=== PATIENT | male | born 1955 | race Hispanic/Latino ===

== ENCOUNTER 2016-08-07 20:39 | Emergency (ER) | payer MEDICAID ==
[2016-08-07 21:24] VITALS: BP 121/65
--- NOTE | 2016-08-07 22:32 | Emergency Department Report ---
ED Lower Extremity HPI - General Chief Complaint: Extremity Injury, Lower Stated Complaint: LEFT HIP PAIN Time Seen by Provider: 08/07/16 22:08 Source: patient, EMS Mode of arrival: Wheelchair Limitations: No Limitations - History of Present Illness Initial Comments: Patient is a 60-year-old male with history of left hip replacement last year presenting with left hip pain status post fall on the lawn this morning. Patient is a poor historian information gathered from EMS. Currently patient cannot articulate why he is in the ED, but reports hip pain. Otherwise no other complaints MD Complaint: hip injury, fall -: days(s) (1) Injury: Hip: Left (pain with ambulation) Place: home Severity: mild Worsens With: weight bearing, movement - Related Data Home Medications Medication Instructions Recorded Confirmed Last Taken Omeprazole Magnesium [PriLOSEC Otc] 20 mg PO QDAY 11/22/15 11/22/15 Unknown Allergies Allergy/AdvReac Type Severity Reaction Status Date / Time No Known Allergies Allergy Unverified 11/22/15 09:54 ED Review of Systems ROS: Stated complaint: LEFT HIP PAIN Other details as noted in HPI Comment: All other systems reviewed and negative ED Past Medical Hx - Past Medical History Previous Medical History?: Yes Hx Hypertension: No Additional medical history: brain mass - Surgical History Past Surgical History?: Yes Additional Surgical History: brain surgery left hip sx - Social History Smoking Status: Current Every Day Smoker Substance Use Type: None - Medications Home Medications: Home Medications Medication Instructions Recorded Confirmed Last Taken Type Omeprazole Magnesium [PriLOSEC Otc] 20 mg PO QDAY 11/22/15 11/22/15 Unknown History ED Physical Exam - General Limitations: No Limitations General appearance: alert, in no apparent distress - Head Head exam: Present: atraumatic, normocephalic - Eye Eye exam: Present: normal appearance - ENT ENT exam: Present: mucous membranes moist - Neck Neck exam: Present: normal inspection - Respiratory Respiratory exam: Present: normal lung sounds bilaterally. Absent: respiratory distress - Cardiovascular Cardiovascular Exam: Present: regular rate, normal rhythm. Absent: systolic murmur, diastolic murmur, rubs, gallop - GI/Abdominal GI/Abdominal exam: Present: soft, normal bowel sounds - Rectal Rectal exam: Present: deferred - Extremities Exam Extremities exam: Present: normal inspection - Back Exam Back exam: Present: normal inspection - Neurological Exam Neurological exam: Present: alert, oriented X3 - Psychiatric Psychiatric exam: Present: normal affect, normal mood - Skin Skin exam: Present: warm, dry, intact, normal color. Absent: rash ED Course Vital Signs 08/07/16 21:18 Temperature 98.8 F Pulse Rate 65 Respiratory 18 Rate Blood Pressure 121/65 O2 Sat by Pulse 97 Oximetry ED Lower Extremity MDM - Radiology Data Radiology results: image reviewed - Medical Decision Making Hip and pelvis x-rays: Left hip prosthesis in place. No other acute fracture or dislocation. Critical care attestation.: If time is entered above; I have spent that time in minutes in the direct care of this critically ill patient, excluding procedure time. ED Disposition Clinical Impression: Fall, Hip pain Disposition: DISCHARGED TO HOME OR SELFCARE Is pt being admited?: No Condition: Stable Instructions: Arthralgia (ED), Fall Prevention (ED) Referrals: PRIMARY CARE, [Primary Care Provider] - 3-5 Days
--- NOTE | 2016-08-08 08:12 | XRay Report ---
Left hip 2 views. History: Trauma. Findings: A left hip prosthesis is identified in satisfactory position. There is no evidence of fracture or dislocation. Impression: No acute findings.
== END 2016-08-08 00:26 | disposition home or self-care (01) ==
LOC: ED 20:39
DX: M25.551 Pain in right hip (principal); F17.200 Nicotine dependence, unspecified, uncomplicated; W18.30XA Fall on same level, unspecified, initial encounter; Y93.9 Activity, unspecified; Y92.9 Unspecified place or not applicable; Y99.9 Unspecified external cause status
CPT/HCPCS: 99283

== ENCOUNTER 2016-11-09 03:11 | Emergency (ER) | payer MEDICAID ==
--- NOTE | 2016-11-09 03:32 | Emergency Department Report ---
ED General Adult HPI - General Chief complaint: Dyspnea/Respdistress Stated complaint: PULLED OUT TRACH Time Seen by Provider: 11/09/16 03:17 Source: patient (patient is nonverbal. He is able to follow commands.), EMS ( ems notes not available at time of chart dictation), RN notes reviewed, old records reviewed Mode of arrival: Stretcher Limitations: Physical Limitation - History of Present Illness Initial comments: This is a 60-year-old male who was previously unknown to me. He is [facility] the [facility] for accidentally having dislodged his tracheostomy. Upon arrival to the ER, the patient's tracheostomy inner cannula was found to be occluded with wax, mucus, and other products. A 6 Ukrainian cuffed tracheostomy tube was placed and his tracheal stoma, the patient received aggressive bag valve mask ventilation, and was switched to trach collar where he remains saturating well. He is currently saturating well , with no complaints and appears quite comfortable. -: Sudden Consistency: now resolved Improves with: other (placement of a trach) Associated Symptoms: denies other symptoms - Related Data Home Medications Medication Instructions Recorded Confirmed Last Taken Omeprazole Magnesium [PriLOSEC Otc] 20 mg PO QDAY 11/22/15 09/09/16 Unknown Previous Rx's Medication Instructions Recorded Last Taken Type Dexamethasone [Decadron] 4 mg IV Q6HR vial 09/14/16 Unknown Rx levETIRAcetam [Keppra TAB] 750 mg PO BID tablet 09/14/16 Unknown Rx Levofloxacin [Levaquin] 750 mg PO QDAY #6 tablet 11/09/16 Unknown Rx Allergies Allergy/AdvReac Type Severity Reaction Status Date / Time No Known Allergies Allergy Unverified 11/22/15 09:54 ED Review of Systems ROS: Stated complaint: PULLED OUT TRACH Other details as noted in HPI Constitutional: see HPI Eyes: as per HPI ENT: as per HPI Respiratory: see HPI Cardiovascular: as per HPI Gastrointestinal: as per HPI Genitourinary: as per HPI Musculoskeletal: as per HPI Skin: as per HPI Neurological: as per HPI Psychiatric: as per HPI Hematological/Lymphatic: as per HPI ED Past Medical Hx - Past Medical History Hx Hypertension: No Hx Congestive Heart Failure: No Hx Diabetes: No Hx GERD: Yes Hx Asthma: No Hx COPD: No Additional medical history: brain mass - Surgical History Additional Surgical History: brain surgery left hip sx - Social History Smoking Status: Unknown if ever smoked - Medications Home Medications: Home Medications Medication Instructions Recorded Confirmed Last Taken Type Omeprazole Magnesium [PriLOSEC Otc] 20 mg PO QDAY 11/22/15 09/09/16 Unknown History Dexamethasone [Decadron] 4 mg IV Q6HR vial 09/14/16 Unknown Rx levETIRAcetam [Keppra TAB] 750 mg PO BID tablet 09/14/16 Unknown Rx Levofloxacin [Levaquin] 750 mg PO QDAY #6 tablet 11/09/16 Unknown Rx ED Physical Exam - General Limitations: Physical Limitation General appearance: alert, in no apparent distress - Head Head exam: Present: atraumatic, normocephalic - Eye Eye exam: Present: normal appearance - ENT ENT exam: Present: normal exam, normal orophraynx, mucous membranes moist - Neck Neck exam: Present: normal inspection, full ROM, other (the tracheal stoma has no redness, pus or streaking) - Respiratory Respiratory exam: Present: respiratory distress, rhonchi, other (initially he had rales and rhonchi. Breath sounds are improved at the place with a tracheostomy) - Cardiovascular Cardiovascular Exam: Present: regular rate, normal rhythm, normal heart sounds. Absent: bradycardia, tachycardia, irregular rhythm, systolic murmur, diastolic murmur, rubs, gallop - GI/Abdominal GI/Abdominal exam: Present: soft, normal bowel sounds. Absent: distended, tenderness, guarding, rebound, rigid - Rectal Rectal exam: Present: deferred - Extremities Exam Extremities exam: Present: normal inspection - Back Exam Back exam: Present: normal inspection - Neurological Exam Neurological exam: Present: alert - Psychiatric Psychiatric exam: Present: normal affect, normal mood - Skin Skin exam: Present: warm, dry, intact, normal color. Absent: rash ED Course Vital Signs 11/09/16 11/09/16 11/09/16 03:45 04:28 04:40 Temperature 97.3 F L Pulse Rate 97 H 92 H Respiratory 20 18 24 Rate Blood Pressure 123/84 [Left] O2 Sat by Pulse 98 96 Oximetry 11/09/16 04:46 Temperature 98.7 F Pulse Rate 89 Respiratory 18 Rate Blood Pressure 116/80 [Left] O2 Sat by Pulse 96 Oximetry ED Medical Decision Making - Lab Data Vital Signs 11/09/16 11/09/16 11/09/16 03:45 04:28 04:40 Temperature 97.3 F L Pulse Rate 97 H 92 H Respiratory 20 18 24 Rate Blood Pressure 123/84 [Left] O2 Sat by Pulse 98 96 Oximetry 11/09/16 04:46 Temperature 98.7 F Pulse Rate 89 Respiratory 18 Rate Blood Pressure 116/80 [Left] O2 Sat by Pulse 96 Oximetry - Radiology Data Radiology results: image reviewed interpreted by me: X-ray of the chest demonstrates appropriate placement of tracheostomy tube. Chronic findings consistent with COPD are noted There is a right lower lobe infiltrate - Medical Decision Making differential diagnosis: Tracheostomy displacement, chronic lung disease Assessment and plan: 60-year-old male status post inadvertent removal of tracheostomy tube. He is currently on a trach collar and appears quite comfortable. He is in no distress. He will be [facility]. X-ray suggests right lower lobe infiltrate, may be aspiration. Patient will be treated empirically with Levaquin. Critical care attestation.: If time is entered above; I have spent that time in minutes in the direct care of this critically ill patient, excluding procedure time. ED Disposition Clinical Impression: Tracheostomy care Disposition: DC/TX-03 [facility] C[facility] Is pt being admited?: No Does the pt Need Aspirin: No Condition: Stable Instructions: Tracheostomy Care (ED), Tracheotomy (ED) Additional Instructions: Continue current outpatient medications. Follow up with the certified meeting professional for further evaluation and management of the tracheostomy placement. Patient currently on a trach collar with oxygen as needed. Return to the ER right away with fevers, chills, chest pain, shortness of breath, lethargy, irritability, projectile vomiting, change in mental status. Referrals: PRIMARY CARE, [Primary Care Provider] - 3-5 Days MINESH DELATORRE MD [Staff Physician] - 3-5 Days SHANTI EMERSON MD [Staff Physician] - 3-5 Days
--- NOTE | 2016-11-09 05:10 | XRay Report ---
FINAL REPORT PROCEDURE: XR CHEST 1V AP TECHNIQUE: Chest radiograph anteroposterior view. CPT 37995 HISTORY: resp distress COMPARISON: 09/09/2016 FINDINGS: Heart: Normal. Mediastinum/Vessels: Normal. Lungs/Pleural space: There is an infiltrate at the right lung base which is new since the prior study. The left lung is clear and expanded.. Bony thorax: No acute osseous abnormality. Life support devices: Tracheostomy tube is in proper position.. IMPRESSION: Heart size is normal.. There is an infiltrate at the right lung base which is new since the prior study. The left lung is clear and expanded.. Tracheostomy tube is in proper position..
[2016-11-09] MEDS ORDERED: LEVAQUIN FEEDTUBE ONE (05:25)
[2016-11-09 08:29] VITALS: BP 103/74
== END 2016-11-09 08:30 ==
LOC: ED 03:11
DX: J95.09 Other tracheostomy complication (principal); K21.9 Gastro-esophageal reflux disease without esophagitis
CPT/HCPCS: 71010; 82962

== ENCOUNTER 2016-11-10 00:41 | Emergency (ER) | payer MEDICAID ==
--- NOTE | 2016-11-10 04:09 | Emergency Department Report ---
ED General Adult HPI - General Chief complaint: Dyspnea/Respdistress Stated complaint: REINA Time Seen by Provider: 11/10/16 00:57 Source: EMS (ems notes not available at time of chart dictation), RN notes reviewed, old records reviewed Mode of arrival: Stretcher Limitations: Language Barrier, Physical Limitation - History of Present Illness Initial comments: This is a 60-year-old male who I saw yesterday. The patient is sent back to the ER because he accidentally dislodged his 6 Tongan shiley cuffed tracheostomy tube. It is replaced prior to my evaluation. The patient is able to nod to yes no questions. The patient indicates no headache, neck pain, chest pain, abdominal pain, shortness of breath. -: Sudden Location: neck Severity scale (0 -10): 0 Consistency: now resolved Associated Symptoms: denies other symptoms - Related Data Home Medications Medication Instructions Recorded Confirmed Last Taken Omeprazole Magnesium [PriLOSEC Otc] 20 mg PO QDAY 11/22/15 11/10/16 11/09/16 08: 00 ALBUTEROL Inhaler [Proair] 2 puff IH QID PRN 11/10/16 11/10/16 11/09/16 21:00 Docusate Sodium [Colace] 100 mg PO BID 11/10/16 11/10/16 11/09/16 21:00 Enoxaparin [Lovenox] 40 mg SQ QDAY 11/10/16 11/10/16 11/09/16 21:00 Multivitamin Tab [Multiple Vitamin 1 each PO QDAY 11/10/16 11/10/16 11/09/16 21: 00 TAB (Theragran)] Nicotine [Habitrol] 14 mg TD DAILY 11/10/16 11/10/16 11/09/16 21:00 Pantoprazole [Protonix] 40 mg PO QDAY 11/10/16 11/10/16 11/09/16 21:00 Ramelteon [Rozerem] 8 mg PO DAILY 11/10/16 11/10/16 11/09/16 21:00 Previous Rx's Medication Instructions Recorded Last Taken Type levETIRAcetam [Keppra TAB] 750 mg PO BID tablet 09/14/16 11/09/16 21:00 Rx Allergies Allergy/AdvReac Type Severity Reaction Status Date / Time No Known Allergies Allergy Verified 11/10/16 01:08 ED Review of Systems ROS: Stated complaint: REINA Other details as noted in HPI Constitutional: denies: fever Eyes: denies: eye discharge ENT: denies: epistaxis Respiratory: see HPI Cardiovascular: denies: chest pain Gastrointestinal: denies: abdominal pain Genitourinary: as per HPI Musculoskeletal: as per HPI Skin: as per HPI Neurological: as per HPI Psychiatric: as per HPI ED Past Medical Hx - Past Medical History Previous Medical History?: Yes Hx Hypertension: No Hx Congestive Heart Failure: No Hx Diabetes: No Hx GERD: Yes Hx Asthma: No Hx COPD: No Additional medical history: Resp failure, Trach placement, Peg tube placement, Hemangioblastoma, brain mass, GERD, OA OF LEFT HIP - Surgical History Past Surgical History?: Yes Additional Surgical History: 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 - Social History Smoking Status: Never Smoker Substance Use Type: None - Medications Home Medications: Home Medications Medication Instructions Recorded Confirmed Last Taken Type Omeprazole Magnesium [PriLOSEC Otc] 20 mg PO QDAY 11/22/15 11/10/16 11/09/16 08: 00 History levETIRAcetam [Keppra TAB] 750 mg PO BID tablet 09/14/16 11/10/16 11/09/16 21: 00 Rx ALBUTEROL Inhaler [Proair] 2 puff IH QID PRN 11/10/16 11/10/16 11/09/16 21:00 History Docusate Sodium [Colace] 100 mg PO BID 11/10/16 11/10/16 11/09/16 21:00 History Enoxaparin [Lovenox] 40 mg SQ QDAY 11/10/16 11/10/16 11/09/16 21:00 History Multivitamin Tab [Multiple Vitamin 1 each PO QDAY 11/10/16 11/10/16 11/09/16 21: 00 History TAB (Theragran)] Nicotine [Habitrol] 14 mg TD DAILY 11/10/16 11/10/16 11/09/16 21:00 History Pantoprazole [Protonix] 40 mg PO QDAY 11/10/16 11/10/16 11/09/16 21:00 History Ramelteon [Rozerem] 8 mg PO DAILY 11/10/16 11/10/16 11/09/16 21:00 History ED Physical Exam - General Limitations: Language Barrier General appearance: alert, in no apparent distress - Head Head exam: Present: atraumatic, normocephalic - Eye Eye exam: Present: normal appearance - ENT ENT exam: Present: mucous membranes moist, other (there is a tracheostomy collar noted, stoma has no redness, pus or streaking) - Neck Neck exam: Present: normal inspection, full ROM - Respiratory Respiratory exam: Present: normal lung sounds bilaterally. Absent: respiratory distress, wheezes, rales, rhonchi, stridor, chest wall tenderness, accessory muscle use, decreased breath sounds - Cardiovascular Cardiovascular Exam: Present: regular rate, normal rhythm. Absent: systolic murmur, diastolic murmur, rubs, gallop - GI/Abdominal GI/Abdominal exam: Present: soft, normal bowel sounds, other (feeding tube in place. No redness around the tube site). Absent: distended, tenderness, guarding, rebound, rigid - Rectal Rectal exam: Present: deferred - Extremities Exam Extremities exam: Present: normal inspection, normal capillary refill - Back Exam Back exam: Present: normal inspection. Absent: tenderness - Neurological Exam Neurological exam: Present: alert - Psychiatric Psychiatric exam: Present: normal affect, normal mood - Skin Skin exam: Present: warm, dry, intact, normal color. Absent: rash ED Course Vital Signs 11/10/16 11/10/16 11/10/16 00:54 01:27 03:39 Temperature 99.7 F H Pulse Rate 86 93 H Respiratory 20 20 18 Rate Blood Pressure 142/76 Blood Pressure 142/76 124/73 [Left] O2 Sat by Pulse 96 93 Oximetry ED Medical Decision Making - Lab Data Vital Signs 11/10/16 11/10/16 11/10/16 00:54 01:27 03:39 Temperature 99.7 F H Pulse Rate 86 93 H Respiratory 20 20 18 Rate Blood Pressure 142/76 Blood Pressure 142/76 124/73 [Left] O2 Sat by Pulse 96 93 Oximetry - Medical Decision Making Patient with recurrent tracheostomy dislodgment, now in place, no distress, can follow-up as an outpatient. - Differential Diagnosis tracheostomy tube dislodgment, recurrent, now resolved Critical care attestation.: If time is entered above; I have spent that time in minutes in the direct care of this critically ill patient, excluding procedure time. ED Disposition Clinical Impression: Tracheostomy care Disposition: DC/TX-70 ANOTHER TYPE [facility] Is pt being admited?: No Does the pt Need Aspirin: No Condition: Stable Additional Instructions: Continue current outpatient medications. Follow up with the primary care doctor or primer assembler within the next 2 weeks. Return to the ER right away with fevers, chills, chest pain, shortness of breath, nausea, vomiting, confusion, inability to tolerate liquid feeds. Referrals: PRIMARY CARE, [Primary Care Provider] - 3-5 Days
[2016-11-10 07:19] VITALS: BP 111/65
== END 2016-11-10 07:19 | disposition other institution (70) ==
LOC: ED 00:41
DX: J95.01 Hemorrhage from tracheostomy stoma (principal); K21.9 Gastro-esophageal reflux disease without esophagitis

== ENCOUNTER 2016-11-13 20:09 | Inpatient (IN) | payer MEDICAID ==
[2016-11-13] MEDS ORDERED: NACL 0.9% 500 ML 500 ML IV ONE (20:22)
[2016-11-13] MEDS ORDERED: TYLENOL PR STA (20:22)
[2016-11-13] MEDS ORDERED: DUONEB *Not for PRN Use IH ONE (20:32)
--- NOTE | 2016-11-13 20:35 | Emergency Department Report ---
HPI - General Chief Complaint: Dyspnea/Respdistress Time Seen by Provider: 11/13/16 20:28 - HPI HPI: This is a 60-year-old male who presents to the emergency department by EMS from [facility] with complaint of shortness of breath and low pulse ox. The patient is trached and has a history of a brain mass. He previously was at [facility] a few days ago for competitions with his trach and when she pulled it out repeatedly. At that time it appears as if he had some lower lobe pneumonia and was placed on Levaquin. He was sent in today as he was found have low oxygen saturation. EMS found the patient to be in the 70s. He was given a trach tent with supplemental oxygen and had some improvement. Patient is currently a poor historian secondary to his medical conditions. ED Past Medical Hx - Past Medical History Previous Medical History?: Yes Hx Hypertension: Yes Hx Congestive Heart Failure: No Hx Diabetes: Yes Hx GERD: Yes Hx Asthma: No Hx COPD: No Additional medical history: Resp failure, Trach placement, Peg tube placement, Hemangioblastoma, brain mass, GERD, OA OF LEFT HIP, DVT - Surgical History Past Surgical History?: Yes Additional Surgical History: 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 - Social History Smoking Status: Former Smoker Substance Use Type: None - Medications Home Medications: Home Medications Medication Instructions Recorded Confirmed Last Taken Type Omeprazole Magnesium [PriLOSEC Otc] 20 mg PO QDAY 11/22/15 11/10/16 11/09/16 08: 00 History levETIRAcetam [Keppra TAB] 750 mg PO BID tablet 09/14/16 11/10/16 11/09/16 21: 00 Rx ALBUTEROL Inhaler [Proair] 2 puff IH QID PRN 11/10/16 11/10/16 11/09/16 21:00 History Docusate Sodium [Colace] 100 mg PO BID 11/10/16 11/10/16 11/09/16 21:00 History Enoxaparin [Lovenox] 40 mg SQ QDAY 11/10/16 11/10/16 11/09/16 21:00 History Multivitamin Tab [Multiple Vitamin 1 each PO QDAY 11/10/16 11/10/16 11/09/16 21: 00 History TAB (Theragran)] Nicotine [Habitrol] 14 mg TD DAILY 11/10/16 11/10/16 11/09/16 21:00 History Pantoprazole [Protonix] 40 mg PO QDAY 11/10/16 11/10/16 11/09/16 21:00 History Ramelteon [Rozerem] 8 mg PO DAILY 11/10/16 11/10/16 11/09/16 21:00 History ED Review of Systems ROS: Stated complaint: REINA Other details as noted in HPI Comment: Unobtainable due to pts medical conditions Physical Exam - Physical Exam Vital Signs: Vital Signs 11/13/16 20:13 Temperature 100.4 F H Pulse Rate 102 H Blood Pressure 94/65 O2 Sat by Pulse 86 Oximetry Physical Exam: GENERAL: Patient is ill-appearing. HEENT: Normocephalic. Atraumatic. Pupils equal reactive to light bilaterally. Patient has moist mucous membranes. NECK: Supple. Trachea is midline. There is a trach and collar in place. CHEST/LUNGS: Coarse breath sounds and rhonchi throughout the chest. There is supraclavicular accessory muscle use and tachypnea. There is some respiratory distress noted. HEART/CARDIOVASCULAR: Regular. There is mild tachycardia. There is no gallop rub or murmur. ABDOMEN: Abdomen is soft, nontender. Patient has normal bowel sounds. There is no abdominal distention. SKIN: Skin is hot but dry. NEURO: Patient withdraws from painful stimuli but is nonverbal and not following any commands. MUSCULOSKELETAL: There is no tenderness or deformity. There is no evidence of acute injury. ED Course Vital Signs 11/13/16 20:13 Temperature 100.4 F H Pulse Rate 102 H Blood Pressure 94/65 O2 Sat by Pulse 86 Oximetry - ABG Interpretation Ph: [phone] PCO2: 62 PO2: 36 Bicarbonate: 35 Interpretation: respiratory acidosis, metabolic alkalosis, other (hypoxemia) - Pulse Oximetry Interpretation Digit-Finger Initial Pulse Oximetry Readin O2 Sat by Pulse Oximetry: 85 Actions Taken: increased FIO2 to (60% per trach tent, then vent) ED Medical Decision Making - Lab Data Result diagrams: 11/13/16 20:49 11/13/16 20:49 - EKG Data -: EKG Interpreted by Me EKG shows normal: sinus rhythm, axis, intervals, QRS complexes, ST-T waves Rate: normal - EKG Data When compared to previous EKG there are: no significant change Interpretation: unchanged when compared t (09/09/16) - Radiology Data Radiology results: report reviewed, image reviewed interpreted by me: Chest x-ray shows concern for basilar infiltrates. No obvious pleural effusion. No pneumothorax. CT angiography of the chest shows no evidence of pulmonary arterial emboli. Bilateral extensive lower lung infiltrates. No effusion or pneumothorax. - Medical Decision Making 60-year-old male presents to the emergency department by EMS from [facility] with shortness of breath and hypoxia. Patient was found to have a fever and lung sounds are coarse with rhonchi. Chest x-ray shows concern for basilar infiltrates. He had a quite elevated d-dimer so a CT angiography of the chest was done that did not show any PE but confirmed basilar infiltrates and concern for pneumonia. Along with fever and leukocytosis the patient has criteria for sepsis. Blood and urine culture sent and patient started on Zosyn and Levaquin. The patient got here he required a trach tent and then vent and hypoxia improved. Patient will be admitted to the hospital for further evaluation and treatment has been accepted for admission by the hospitalist. - Differential Diagnosis sepsis, pneumonia, UTI, ID, PE Critical Care Time: Yes Critical care time in (mins) excluding proc time.: 31 Critical care attestation.: If time is entered above; I have spent that time in minutes in the direct care of this critically ill patient, excluding procedure time. Critical care time was used on this patient and during his initial evaluation, multiple re- evaluations, titration of FiO2 up to prevent for respiratory distress, ordering and interpretation of labs, interpretation of radiology results, disposition planning and discussion with hospitalist. Critical Care Time: 31 minutes ED Disposition Clinical Impression: Hypoxemia Sepsis Qualifiers: Sepsis type: sepsis due to unspecified organism Qualified Code(s): A41.9 - Sepsis, unspecified organism Pneumonia Qualifiers: Pneumonia type: due to unspecified organism Laterality: bilateral Lung location : lower lobe of lung Qualified Code(s): J18.9 - Pneumonia, unspecified organism Disposition: OP ADMIT IP TO THIS HOSP Is pt being admited?: Yes Condition: Serious Instructions: Bacterial Pneumonia (ED) Time of Disposition: 23:48
[2016-11-13 21:09] LABS: ISTAT Base Excess 12; ISTAT HCO3 36.9; ISTAT PCO2 62.1 (35-45); ISTAT PH 7.382 (7.35-7.45); ISTAT PO2 36 (80-105); ISTAT SO2 66; ISTAT TCO2 39
[2016-11-13 21:26] LABS: Hematocrit 38.7 % (35.5-45.6); Hemoglobin 12.3 gm/dl (11.8-15.2); Mean Corpuscular HGB Conc 32 % (32-34); Mean Corpuscular Hemoglobin 30 pg (28-32); Mean Corpuscular Volume 95 fl (84-94); Platelet Count 273 K/mm3 (140-440); Red Blood Count 4.09 M/mm3 (3.65-5.03); Red Cell Distribution Width 16.5 % (13.2-15.2); White Blood Count 16.5 K/mm3 (4.5-11.0)
[2016-11-13 21:31] LABS: Alanine Aminotransferase 15 units/L (7-56); Albumin 2.7 g/dL (3.9-5); Albumin/Globulin Ratio 0.5 %; Alkaline Phosphatase 103 units/L (35-129); Anion Gap 13 mmol/L; Blood Urea Nitrogen 18 mg/dL (9-20); Calcium 9.1 mg/dL (8.4-10.2); Carbon Dioxide 34 mmol/L (22-30); Chloride 90.4 mmol/L (98-107); Glucose 149 mg/dL (75-100); Potassium 4.4 mmol/L (3.6-5.0); Sodium 133 mmol/L (137-145); Total Protein 7.7 g/dL (6.3-8.2)
[2016-11-13 21:39] LABS: INR 1.19 (0.87-1.13)
--- NOTE | 2016-11-13 21:49 | XRay Report ---
FINAL REPORT PROCEDURE: XR CHEST 1V AP TECHNIQUE: Chest radiograph anteroposterior view. CPT 53289 HISTORY: REINA COMPARISON: 11/09/2016 FINDINGS: Heart: Normal. Mediastinum/Vessels: Normal. Lungs/Pleural space: There is moderate atelectasis bilateral lower lungs. No effusion or pneumothorax. Bony thorax: No acute osseous abnormality. Life support devices: Tracheostomy tube is noted.. IMPRESSION: Bilateral lower lung atelectasis. No effusion or pneumothorax. Tracheostomy tube is properly positioned..
[2016-11-13 21:56] LABS: Bacteria,Urine 1+ /HPF (Negative); Bilirubin,Urine NEG (Negative); Blood,Urine LG (Negative); Ketones,Urine NEG (Negative); Leukocyte Esterase,Urine LG (Negative); Mucus,Urine FEW /HPF; Nitrite,Urine NEG (Negative); Protein,Urine <15 mg/dL mg/dL (Negative); Urobilinogen,Urine < 2.0 mg/dL (<2.0)
[2016-11-13 22:02] LABS: ISTAT Base Excess 11; ISTAT HCO3 35.2; ISTAT PCO2 54.8 (35-45); ISTAT PH 7.416 (7.35-7.45); ISTAT PO2 115 (80-105); ISTAT SO2 98; ISTAT TCO2 37
[2016-11-13] MEDS ORDERED: NACL ONE (22:13)
--- NOTE | 2016-11-13 23:22 | Cat Scan Report ---
FINAL REPORT PROCEDURE: CT ANGIO CHEST TECHNIQUE: Computerized tomographic angiography of the chest was performed after the IV injection of iodinated nonionic contrast including image processing. The image data was postprocessed using 2-dimensional multiplanar reformatted (MPR) and 3-dimensional (MIP and/or volume rendered) techniques. HISTORY: SOB, hypoxia, elevated dimer COMPARISON: No prior studies are available for comparison. FINDINGS: Heart and pericardium: The heart size is normal. No pericardial effusion.. Thoracic aorta: Normal. Pulmonary vasculature: There is no evidence of pulmonary arterial emboli.. Lymph nodes: There are few lymph nodes identified within the mediastinum. These measure up to 15 millimeters.. Lungs: Bilateral extensive lower lung infiltrates are identified. There is minimal bleb formation identified in the right upper lung medially. No effusion or pneumothorax. A tracheostomy tube is properly positioned.. Pleural space: No effusion, thickening, or pneumothorax. Musculoskeletal structures: No significant abnormality. Upper abdominal structures: No significant abnormality. IMPRESSION: There is no evidence of pulmonary arterial emboli. Bilateral extensive lower lung infiltrates. No effusion or pneumothorax.
[2016-11-13] MEDS ORDERED: LEVAQUIN 750MG/150ML 750 MG/150 ML BAG IV ONE (23:25)
[2016-11-13] MEDS ORDERED: ZOSYN/NS 4.5GM/100ML 4.5 GM/100 ML VIAL IV ONE (23:25)
[2016-11-13] MEDS ORDERED: NACL 0.9% 1000 ML 1,000 ML IV ONE (23:47)
[2016-11-14] MEDS ORDERED: ZOFRAN IV PRN (00:34)
[2016-11-14] MEDS ORDERED: TYLENOL PR PRN (00:34)
[2016-11-14] MEDS ORDERED: NACL 0.9% 1000 ML IV ONE (00:37)
[2016-11-14] MEDS ORDERED: NACL 0.9% 500 ML 500 ML ONE (00:57)
[2016-11-14] MEDS ORDERED: NACL 0.9% 1000 ML 1,000 ML ONE (00:57)
--- NOTE | 2016-11-14 01:08 | Admit Criteria Form ---
Admission Criteria Documentation: PNEUMONIA, COMMUNITY ACQUIRED Clinical Indications for Admission to Inpatient Care (Place ' X' for any and all applicable criteria): Admission to inpatient status for two midnights or more is indicated for ANY ONE of the following (1)(2)(3): [ ]I. Hypoxia [ ]II. Hemodynamic instability [ ]III. Altered mental status that is severe or persistent [ ]IV. Dehydration that is severe or persistent. [ ]V. Bacteremia [ ]. Moderate-risk or high-risk category patients (Pneumonia Severity Index ( PSI) class IV or V, or CURB-65 score of 3 or greater). [ ]VII. Intermediate-risk category patients (e.g., PSI class III or CURB-65 score 2) who do not improve with outpatient and observation care treatment [ ]VIII. Outpatient treatment failure as indicated by 1 or more of the following(9): [ ]a) Failure to respond to antibiotic (eg, resistant organism) [ ]b) Clinically significant adverse effects from medication (eg, vomiting) [ ]c) Complications of pneumonia (eg, empyema, bacteremia) [ ]d) Significant worsening of comorbid cond necessitating inpatient care (eg, chronic heart failure) [ X]IX. Appropriate diagnostic testing and treatment unavailable in outpatient or recovery facility (eg, testing or infection control measures unavailable) [ ]X. Respiratory finding (eg. tachypnea) that do not respond to outpatient observation care treatment [ ]XI. Complicated pleural effusions (eg, emphysema, exudative, loculated) [ ]XII. Immunocompromised patients (e.g., AIDS, chronic steroid use) at moderate or high risk based on clinical evaluation. Extended stay beyond goal length of stay may be needed for (20) [ ]a) Unclear diagnosis [ ]b) Pleural disease [ ]c) Severe pneumonia or treatment failure [ ]d) Respiratory failure [ ]e) New onset hyponatremia (serum Na concentration less than 135 mEq/L(mmol/ L) [ ]f) Clinically significant comorbid illness (eg, heart failure, atrial fibrillation with rapid heart rate, alcohol withdrawal, renal insufficiency)(34)(35) [ ]g) Comorbid acute exacerbation of COPD(36) [ ]h) Concomitant diagnosis of malignancy [ ]i) Concomitant altered mental status [ ]j) Culture-identified Gram-negative or antibiotic-resistant organism (eg, Pseudomonas, methicillin-resistant Staphylococcus aureus MRSA)(30) [ ]k) Healthcare-associated pneumonia (36) The original [facility] [employer] content created by [facility] has been revised. The portions of the content which have been revised are identified through the use of italic text or in bold, and [facility] (formerly [facility]) has neither reviewed nor approved the modified material. All other unmodified content is copyright [facility]. Please see references footnoted in the original [facility] edition 2016 Admission Criteria Met: Yes
[2016-11-14 01:14] LABS: ISTAT Base Excess 8; ISTAT HCO3 32.8; ISTAT PCO2 54.2 (35-45); ISTAT PO2 91 (80-105); ISTAT SO2 97; ISTAT TCO2 34
--- NOTE | 2016-11-14 01:14 | History and Physical Report ---
History of Present Illness Date of admission: 11/14/16 00:34 History of present illness: This is a 60-year-old man with a history of chronic respiratory failure, brain mass, trach, PEG, brain mass, hypertension, diabetes, seizure sent to the emergency room for respiratory distress, shortness of breath. Patient is nonverbal, history and review of system is unobtainable PAST MEDICAL HISTORY:chronic respiratory failure, brain mass, trach, PEG, brain mass, hypertension, diabetes, seizure PAST SURGICAL HISTORY:Unknown FAMILY HISTORY: Unknown SOCIAL HISTORY:Unknown Medications and Allergies Allergies Allergy/AdvReac Type Severity Reaction Status Date / Time No Known Allergies Allergy Verified 11/10/16 01:08 Home Medications Medication Instructions Recorded Confirmed Last Taken Type Omeprazole Magnesium [PriLOSEC Otc] 20 mg PO QDAY 11/22/15 11/14/16 11/09/16 08: 00 History levETIRAcetam [Keppra TAB] 750 mg PO BID tablet 09/14/16 11/14/16 11/09/16 21: 00 Rx ALBUTEROL Inhaler [Proair] 2 puff IH QID PRN 11/10/16 11/14/16 11/09/16 21:00 History Docusate Sodium [Colace] 100 mg PO BID 11/10/16 11/14/16 11/09/16 21:00 History Enoxaparin [Lovenox] 40 mg SQ QDAY 11/10/16 11/14/16 11/09/16 21:00 History Multivitamin Tab [Multiple Vitamin 1 each PO QDAY 11/10/16 11/14/16 11/09/16 21: 00 History TAB (Theragran)] Nicotine [Habitrol] 14 mg TD DAILY 11/10/16 11/14/16 11/09/16 21:00 History Pantoprazole [Protonix] 40 mg PO QDAY 11/10/16 11/14/16 11/09/16 21:00 History Ramelteon [Rozerem] 8 mg PO DAILY 11/10/16 11/14/16 11/09/16 21:00 History Active Meds: Active Medications Acetaminophen (Tylenol) 650 mg PO Q4H PRN PRN Reason: Pain MILD(1-3)/Fever >100.5/MENDIETA Acetaminophen (Tylenol) 650 mg [place] Q4H PRN PRN Reason: Pain MILD(1-3)/Fever >100.5/MENDIETA Enoxaparin Sodium (Lovenox) 30 mg SUB-Q QDAY [facility] Levofloxacin/Dextrose (Levaquin 750mg/150ml) 750 mg in 150 mls @ 100 mls/hr IV Q24HR@2200 MONICA PRN Reason: Protocol Piperacillin Sod/Tazobactam Sod (Zosyn/Ns 4.5gm/100ml) 4.5 gm in 100 mls @ 200 mls/hr IV Q8H MONICA PRN Reason: Protocol Ondansetron HCl (Zofran) 4 mg IV Q8H PRN PRN Reason: N/V unrelieved by Reglan Exam - Physical Exam Narrative exam: Gen. appearance: Patient lying in bed, no apparent distress, on trach collar HEENT: Normocephalic, atraumatic, pupils equally round and reactive to light, unable to do extraocular movement , and no sclericterus,. No JVD or thyromegaly or nodule,neck supple, no carotid bruit ,mucous membranes moist, unable to examine oral cavity Heart: S1, S2, regular rate and rhythm Lungs: Clear to auscultation anteriorly,bilaterally, breathing comfortable Abdomen: Positive bowel sounds, g-tube, nondistended, no organomegaly Extremity: No edema, cyanosis, clubbing Skin: No rash, nodules, warm, dry Neuro:sedated - Constitutional Vitals: Temp Pulse Resp BP Pulse Ox 98 F 74 18 90/56 100 11/13/16 22:55 11/14/16 00:25 11/14/16 00:25 11/14/16 00:25 11/14/16 00:25 Results - Labs CBC & Chem 7: 11/13/16 20:49 11/13/16 20:49 - Imaging and Cardiology CT scan - chest: report reviewed Assessment and Plan Assessment Septic Shock B/l Pneumonia Chronic respiratory failure brain mass, diabetes seizure Plan Admit to medicine Start IV zosyn, levaquoin, iv fluids and levophed drip Follow cultures, consult critical care Start ventilatory support Start dvt prophalaxis. Continue appropriate outpatient medications
[2016-11-14] MEDS ORDERED: LEVOPHED DRIP 4 MG/NS 250 ML 0 MG/0 ML BAG IV ONE (01:44)
[2016-11-14] MEDS ORDERED: LEVOPHED DRIP 4 MG/NS 250 ML 4 MG/250 ML BAG IV SCH (02:00)
[2016-11-14 06:41] LABS: ISTAT Base Excess 9; ISTAT PCO2 46.9 (35-45); ISTAT PH 7.455 (7.35-7.45); ISTAT PO2 109 (80-105); ISTAT SO2 98; ISTAT TCO2 34
--- NOTE | 2016-11-14 08:16 | Consultation ---
History of Present Illness Consult date: 11/14/16 Requesting physician: GURU JORDAN Reason for consult: other (Acute Hypoxemic Respiratory Failure on MVS; Tracheostomy Dependent) History of present illness: PULMONARY/CCM CONSULT NOTE (Full note dictated # [id number]) Please see dictated notes for full details Medications and Allergies Allergies Allergy/AdvReac Type Severity Reaction Status Date / Time No Known Allergies Allergy Verified 11/10/16 01:08 Home Medications Medication Instructions Recorded Confirmed Last Taken Type Omeprazole Magnesium [PriLOSEC Otc] 20 mg PO QDAY 11/22/15 11/14/16 11/09/16 08: 00 History levETIRAcetam [Keppra TAB] 750 mg PO BID tablet 09/14/16 11/14/16 11/09/16 21: 00 Rx ALBUTEROL Inhaler [Proair] 2 puff IH QID PRN 11/10/16 11/14/16 11/09/16 21:00 History Docusate Sodium [Colace] 100 mg PO BID 11/10/16 11/14/16 11/09/16 21:00 History Enoxaparin [Lovenox] 40 mg SQ QDAY 11/10/16 11/14/16 11/09/16 21:00 History Multivitamin Tab [Multiple Vitamin 1 each PO QDAY 11/10/16 11/14/16 11/09/16 21: 00 History TAB (Theragran)] Nicotine [Habitrol] 14 mg TD DAILY 11/10/16 11/14/16 11/09/16 21:00 History Pantoprazole [Protonix] 40 mg PO QDAY 11/10/16 11/14/16 11/09/16 21:00 History Ramelteon [Rozerem] 8 mg PO DAILY 11/10/16 11/14/16 11/09/16 21:00 History Active Meds: Active Medications Acetaminophen (Tylenol) 650 mg PO Q4H PRN PRN Reason: Pain MILD(1-3)/Fever >100.5/MENDIETA Acetaminophen (Tylenol) 650 mg [place] Q4H PRN PRN Reason: Pain MILD(1-3)/Fever >100.5/MENDIETA Albuterol/Ipratropium (Duoneb *Not For Prn Use*) 1 ampul IH Q6HRT MONICA Famotidine (Pepcid) 20 mg IV BID MONICA Levofloxacin/Dextrose (Levaquin 750mg/150ml) 750 mg in 150 mls @ 100 mls/hr IV Q24HR@2200 MONICA PRN Reason: Protocol Piperacillin Sod/Tazobactam Sod (Zosyn/Ns 4.5gm/100ml) 4.5 gm in 100 mls @ 200 mls/hr IV Q8H MONICA PRN Reason: Protocol Norepinephrine (Levophed Drip 4 Mg/Ns 250 Ml) 4 mg in 250 mls @ 7.5 mls/hr IV TITR MONICA; 2 MCG/MIN PRN Reason: Protocol Last Admin: 11/14/16 02:00 Dose: 2 mcg/min, 7.5 mls/hr Ondansetron HCl (Zofran) 4 mg IV Q8H PRN PRN Reason: N/V unrelieved by Jim Physical Examination Vital signs: Vital Signs Pulse Resp Pulse Ox 101 H 28 H 87 11/13/16 20:08 11/13/16 20:08 11/13/16 20:08 Results - Laboratory Findings CBC and BMP: 11/13/16 20:49 11/13/16 20:49 ABG POC ABG pH 7.455 (7.35-7.45) H 11/14/16 05:49 POC ABG pCO2 46.9 (35-45) H 11/14/16 05:49 POC ABG pO2 109 (80-105) H 11/14/16 05:49 POC ABG HCO3 33.0 11/14/16 05:49 POC ABG Total CO2 34 11/14/16 05:49 POC ABG O2 Sat 98 11/14/16 05:49 PT/INR, D-dimer PT 15.7 Sec. (12.2-14.9) H 11/13/16 20:49 INR 1.19 (0.87-1.13) H 11/13/16 20:49 D-Dimer 2565.21 ng/mlDDU (0-234) H 11/13/16 20:49 Abnormal lab findings: Abnormal Labs 11/14/16 11/14/16 00:49 05:49 POC ABG pH 7.455 H POC ABG pCO2 54.2 H 46.9 H POC ABG pO2 109 H
[2016-11-14] MEDS: DUONEB *Not for PRN Use IH SCH ×3 (08:22→21:31)
[2016-11-14] MEDS: ZOSYN/NS 4.5GM/100ML 4.5 GM/100 ML VIAL IV SCH ×3 (09:48→23:50)
[2016-11-14] MEDS: PEPCID IV SCH ×2 (09:49→22:25)
[2016-11-14] MEDS ORDERED: LOVENOX SUB-Q SCH (10:00)
[2016-11-14] MEDS ORDERED: NACL 0.9% IV ONE (10:20)
[2016-11-14] MEDS: LOVENOX SUB-Q SCH (10:52)
[2016-11-14] MEDS ORDERED: NACL 0.9% 1000 ML 1,000 ML IV SCH (11:00)
[2016-11-14] MEDS ORDERED: SODIUM BICARBONATE FEEDTUBE PRN ×2 (11:50→12:40)
[2016-11-14] MEDS ORDERED: PANCREAZE DR 10,500 UNIT FEEDTUBE PRN ×2 (11:50→12:40)
[2016-11-14] MEDS ORDERED: SIMPLE SYRUP FEEDTUBE PRN ×4 (11:50→12:40)
--- NOTE | 2016-11-14 12:47 | Event Note ---
Date: 11/14/16 Is admitted this morning with worsening shortness of breath Being managed symptomatically for acute bronchitis with oxygen nebulizers and IV steroids and antibiotics Seen and evaluated the patient, physical examination stable Medical records reviewed, continue current management Resume tube feeding, follow cultures, empiric antibiotics 60-year-old male patient with chronic dysphagia failure brain mass trach PEG hypertension diabetes mellitus seizure disorder was admitted this morning through emergency room with acute respiratory distress, bilateral pneumonia and septic shock Admitted to ICU being managed symptomatically The patient patient is alert and awake minimally communicative, vital signs reviewed Spiked a fever, and cultures blood urine and sputum percent, managed with Tylenol Assessment; Acute on chronic respiratory failure Septic shock Bilateral pneumonia History of brain mass Diabetes mellitus Seizure disorder Plan; oxygen titrated to O2 sats more than 90% IV antibiotics with Zosyn and Levaquin Fluid boluses, Levophed titrate systolic blood pressures more than 100 Ventilatory support DVT prophylaxis with Levaquin Plan of care discussed with the patient and her nurse Full CODE STATUS
[2016-11-14 13:32] LABS: ISTAT Base Excess 7; ISTAT HCO3 30.6; ISTAT PCO2 43.6 (35-45); ISTAT PH 7.454 (7.35-7.45); ISTAT PO2 69 (80-105); ISTAT SO2 94; ISTAT TCO2 32
[2016-11-14] MEDS: TYLENOL PO PRN (14:10)
--- NOTE | 2016-11-14 16:11 | Vascular Lab Report ---
LOWER EXTREMITY VENOUS DUPLEX: REASON FOR EXAM: Respiratory failure. COMMENTS ON THE RIGHT: All veins visualized are freely compressible without evidence of internal echogenicity. Flow is spontaneous and phasic throughout. COMMENTS ON THE LEFT: All veins visualized are freely compressible without evidence of internal echogenicity. Flow is spontaneous and phasic throughout. IMPRESSION: No evidence of acute or chronic deep venous thrombosis in either lower extremity.
[2016-11-14] MEDS: NOVOLOG SUB-Q SCH (17:48)
[2016-11-14] MEDS: LEVAQUIN 750MG/150ML 750 MG/150 ML BAG IV SCH (22:26)
[2016-11-15] MEDS: NOVOLOG SUB-Q SCH ×4 (00:45→17:58)
[2016-11-15] MEDS: DUONEB *Not for PRN Use IH SCH ×4 (03:22→20:18)
[2016-11-15 04:47] LABS: Basophils % (Auto) 0.3 % (0.0-1.8); Eosinophils % (Auto) 0.4 % (0.0-4.3); Hematocrit 28.4 % (35.5-45.6); Hemoglobin 9.4 gm/dl (11.8-15.2); Mean Corpuscular HGB Conc 33 % (32-34); Mean Corpuscular Hemoglobin 31 pg (28-32); Mean Corpuscular Volume 92 fl (84-94); Platelet Count 241 K/mm3 (140-440); Red Blood Count 3.08 M/mm3 (3.65-5.03); Red Cell Distribution Width 15.8 % (13.2-15.2); White Blood Count 16.1 K/mm3 (4.5-11.0)
[2016-11-15 05:01] LABS: Blood Urea Nitrogen 14 mg/dL (9-20); Calcium 8.5 mg/dL (8.4-10.2); Carbon Dioxide 31 mmol/L (22-30); Glucose 103 mg/dL (75-100)
[2016-11-15 05:02] LABS: Anion Gap 12 mmol/L; Chloride 101.3 mmol/L (98-107); Potassium 3.4 mmol/L (3.6-5.0); Sodium 141 mmol/L (137-145)
[2016-11-15 05:36] LABS: ISTAT Base Excess 11; ISTAT HCO3 34.4; ISTAT PCO2 45.4 (35-45); ISTAT PH 7.488 (7.35-7.45); ISTAT PO2 72 (80-105); ISTAT SO2 95; ISTAT TCO2 36
--- NOTE | 2016-11-15 06:47 | Consultation ---
PULMONARY CRITICAL CARE CONSULT NOTE CONSULTING PHYSICIAN: Yesenia Bailey M.D. REASON FOR CONSULTATION: Acute respiratory failure, severe sepsis with hypotension. CHIEF COMPLAINT AND HISTORY OF PRESENT ILLNESS: The patient is a 60-year-old male with past medical history significant both for a diagnosis of chronic respiratory failure, status post tracheostomy, but also a history of the brain mass, who apparently was in this hospital a few days prior. Due to complications with his tracheostomy tube, reportedly had pulled it out and required replacement in the ER. He was also noted to have a right lower lobe pneumonia, was placed on Levaquin and was sent back to the detention today. He was brought into the hospital with hypoxemia, O2 sats in the 70s. He was also found to be hypotensive. As a result of that he was placed on mechanical ventilatory support. He also required vasopressors as well as some volume resuscitation. When I stopped by to see him, he was resting peacefully in bed. He did follow my questions, answered my questions appropriately and followed my prompts, but was not really involved in the discussion by which I mean he kept his eyes closed throughout the whole examination. I do not have any history of emesis or overt aspiration. It is unclear if he had any fevers or chills prior to coming to the hospital. He does have a prior smoking history, not a current smoker at this time. This is as much of the history of presentation as I have. 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 PAST SURGICAL HISTORY: He has had surgery to the brain, presumably for removal of the hemangioblastoma. He has also had left hip surgery and he has had a [employer]ITER shunt (ventriculoperitoneal shunt) placed. MEDICATIONS: He was on at the time I stopped by to see him, according to the medication administration record, included the following: Tylenol 650 mg p.o. q. 4 hours p.r.n. mild pain, all p.o. meds via the feeding tube; also 650 mg p.o. q. 4 hours for fever. DuoNeb treatments nebulized q. 6 hours, Pepcid 20 mg IV b.i.d., Levaquin 750 mg IV daily, Levophed drip had been going earlier at 2 mcg per minute, Zofran 4 mg IV q. 8 hours nausea and vomiting, Zosyn 4.5 grams IV q. 8 hours. ALLERGIES: No known drug allergies. DIET: Thin to cachectic looking gentleman, acute weight loss, again history is unknown. FAMILY AND SOCIAL HISTORY: [facility] resident. He has a prior tobacco smoking history, unable to quantify. No current alcohol or illicit drug use or abuse history as far as I can tell. Family history otherwise unknown. REVIEW OF SYSTEMS: Difficult to obtain secondary to his mental and medical condition, but since he has been here, no gross hematochezia or melena. No gross hematuria. No hematemesis. No bloody tracheal secretions. No seizures. Review of systems otherwise as in the body of history above or unobtainable. PHYSICAL EXAMINATION: VITAL SIGNS: At initial presentation in the Emergency Room, he was febrile, temperature 100.4 degrees Fahrenheit rectally with a pulse of 101, respiratory rate of 28, blood pressure 94/65, oxygen sats 87% at presentation, inspired oxygen concentration was not recorded. HEAD, EYES, EARS, NOSE, AND THROAT: Pupils were equal, round, about 3-4 mm, reactive to light. Extraocular muscle movements could not be assessed. Tracheostomy tube was in place in the midline of the neck. No significant bleeding or exudation around it. Grossly, no palpable lymph nodes in the supraclavicular or submandibular lymph node chains. LUNGS: Auscultation of both lung tello reveals bilateral rales, no wheezing. HEART: Heart sounds 1 and 2 are heard. They were regular in rate and rhythm at time of my evaluation. ABDOMEN: Soft. Bowel sounds are positive. Does not appear tender. EXTREMITIES: Without overt digital clubbing, cyanosis, or pedal edema. NEUROLOGIC: He seems to have good power, maybe about 4-5/5 to all extremities except for the right lower extremity, which he either did not want to move or could not move well for my exam. LABORATORY DATA: From my review are as follows: Admission white cell count 16,500 with a hemoglobin of 12.3, hematocrit of 38.7 and platelet count of 273. INR was 1.19. D-dimer was 2565. Arterial blood gas at presentation showed a pH of 7.42, pCO2 of 55, pO2 of 115, that was on 100% FiO2. This morning, pH is 7.45, pCO2 is 47, pO2 is 109, that is on 60%. This was on assist control. PRVC AC, tidal volumes of 450, rate of 18, PEEP of 5. Serum sodium 133, potassium 4.4, chloride 90, bicarbonate 34, BUN 18, creatinine 0.5, and glucose 149. Lactic acid level within normal limits. Albumin 2.7. Otherwise, liver function tests within normal limits. Urinalysis, large leukocyte esterase, only 4 white cells per high power field, 1+ bacteremia. Blood cultures no growth to date. I have reviewed the interpretation here. Chest x-ray essentially shows bilateral increased interstitial markings and what appears to be bibasilar infiltrates. I can see a [employer] shunt coursing through the skin and down to the abdomen. I do feel we are dealing more with atelectasis of the lungs than we are dealing with actual infiltrates though. A CT angiogram was done also, it was read as a negative CTA. I do agree with that. What is obvious is collapse of both lower lobes, I should say, pretty significant. I think this is more atelectasis than it is consolidation. No gross pneumothorax, no gross bony fractures. It does have some subcarinal fullness. ASSESSMENT AND PLAN: We have an elderly gentleman in with an acute respiratory failure, hypoxemic and also severe sepsis, requiring vasopressors. From a respiratory standpoint, I will first of all go ahead and increase his PEEP to about 10 on this gentleman and see if I can open up the lower lobes. The plan will be to follow that with a bronchoscopy to suction out secretions. If there is no significant improvement in the atelectasis on the chest x-ray we do tomorrow, I will try and wean him all the same with a PEEP of 10 if he is able to tolerate essentially a CPAP 10/10. If he does not tolerate that, we will keep him on full mechanical ventilatory support. At least, we should open up his airways and hopefully stay reduces chances of respiratory failure. Bronchodilators will be continued as well as pulmonary toilet. Aspiration precautions and ventilator bundles will be instituted and addressed daily. Oxygen will be weaned to keep sats greater than or equal to about 92-94%. From a cardiovascular standpoint, gentle volume hydration will be started and he will be weaned off the Levophed for mean arterial pressures greater than 60 mmHg and we will follow him clinically. From an infectious disease standpoint, we will continue broad spectrum anti-infective therapy; however, the numbers and clinical picture may be due to atelectasis. It may also be due to an aspiration pneumonia, I cannot rule that out. We will continue as mentioned empiric antibiotics and anti-infectives will ultimately be deescalated based on results of clinical and microbiologic data. From a GI and nutritional standpoint, enteral nutrition will be the feeding modality of choice. Aspiration precautions will be maintained. He is appropriately on GI prophylaxis from a renal standpoint. No major electrolyte abnormalities. Again, gentle volume hydration will be given and inputs and outputs will be followed. Electrolytes will be corrected as necessary. From a central nervous system standpoint, no gross new focal deficits that warrant neuro imaging. He is following commands appropriately. We will follow him clinically. I should mention from a hematologic standpoint, I see the elevated D-dimer. I will get lower extremity Dopplers and if he does have deep venous thrombosis, we will discuss with Neurology to see if anticoagulation is appropriate in this gentleman. In light of his neurologic brain surgery, he may at least benefit from an IVC filter if he cannot tolerate anticoagulation, but the CTA is negative for pulmonary emboli. From a general and hospital healthcare maintenance standpoint, he is appropriately on gastrointestinal prophylaxis. He is going to be placed on deep venous thrombosis prophylaxis. Flu and pneumonia vaccination will be per protocol. Thank you very much for the consult, Dr. Bailey. We will follow along. We will make further recommendations as picture progresses/becomes clearer. He is critically ill on life-sustaining interventions including mechanical ventilatory support and vasopressors at risk for further deterioration including . At this time, I spent about 35-40 minutes of critical care time without overlap and excluding any procedural time that may be necessary. JOB# [id number] PEE/FLO
[2016-11-15] MEDS ORDERED: POTASSIUM CHLORIDE FEEDTUBE ONE (08:00)
--- NOTE | 2016-11-15 08:31 | Progress Note ---
Assessment and Plan Assessment and plan: --Hypokalemia; replacement protocol and monitor levels --Right pneumothorax For chest tube placement, pulmonary following --Acute on chronic hypoxemic respiratory failure; oxygen titrated to O2 sats more than 90% Nebulizers, IV steroids and IV antibiotics, inhalation steroids Status post bronchoscopy with suctioning of secretions, pulmonary following --Bilateral pneumonia/atelectasis s/p bronchoscopy, suctioning a trace, supportive care --Sepsis secondary to bilateral pneumonia; continue current antibiotics Levaquin , follow cultures --Type 2 diabetes mellitus; Accu-Chek sliding scale coverage and ADA diet and insulin --History of seizure disorder Seizure precautions, continue antiepileptic medications --DVT prophylaxis; Lovenox --CODE STATUS full code --We will planning to case management Patient's condition treatment plan discussed in detail with the patient and his nurse Consults and recommendations noted and appreciated Critical care time 31 minutes History Interval history: Patient seen and evaluated this morning in ICU medical records reviewed Patient feels better, scheduled for bronchoscopy and chest tube placement for pneumothorax today Alert and awake not in acute distress Vital signs reviewed Hospitalist Physical - Constitutional Vitals: Temp Pulse Resp BP Pulse Ox 100.1 F H 88 22 101/60 98 11/15/16 03:27 11/15/16 04:00 11/15/16 04:00 11/15/16 04:00 11/15/16 04:00 General appearance: Present: no acute distress, cachectic, disheveled - EENT Eyes: Present: PERRL, EOM intact - Neck Neck: Present: supple, normal ROM, other ( tracheostomy) - Respiratory Respiratory effort: normal Respiratory: right: diminished, rhonchi, negative: rales, wheezing - Cardiovascular Rhythm: regular Heart Sounds: Present: S1 & S2 - Extremities Extremities: no ischemia, No edema - Abdominal General gastrointestinal: soft, non-tender, non-distended, normal bowel sounds - Integumentary Integumentary: Present: clear, warm - Psychiatric Psychiatric: appropriate mood/affect, cooperative - Neurologic Neurologic: other (residual deficit) Results - Labs CBC & Chem 7: 11/15/16 04:13 11/15/16 04:13 Labs: Laboratory Last Values WBC 16.1 K/mm3 (4.5-11.0) H 11/15/16 04:13 RBC 3.08 M/mm3 (3.65-5.03) L 11/15/16 04:13 Hgb 9.4 gm/dl (11.8-15.2) L 11/15/16 04:13 Hct 28.4 % (35.5-45.6) L D 11/15/16 04:13 MCV 92 fl (84-94) 11/15/16 04:13 MCH 31 pg (28-32) 11/15/16 04:13 MCHC 33 % (32-34) 11/15/16 04:13 RDW 15.8 % (13.2-15.2) H 11/15/16 04:13 Plt Count 241 K/mm3 (140-440) 11/15/16 04:13 Lymph % (Auto) 6.1 % (13.4-35.0) L 11/15/16 04:13 [place] % (Auto) 8.5 % (0.0-7.3) H 11/15/16 04:13 Eos % (Auto) 0.4 % (0.0-4.3) 11/15/16 04:13 Baso % (Auto) 0.3 % (0.0-1.8) 11/15/16 04:13 Lymph # 1.0 K/mm3 (1.2-5.4) L 11/15/16 04:13 [place] # 1.4 K/mm3 (0.0-0.8) H 11/15/16 04:13 Eos # 0.1 K/mm3 (0.0-0.4) 11/15/16 04:13 Baso # 0.1 K/mm3 (0.0-0.1) 11/15/16 04:13 Seg Neutrophils % 84.7 % (40.0-70.0) H 11/15/16 04:13 Seg Neutrophils # 13.6 K/mm3 (1.8-7.7) H 11/15/16 04:13 PT 15.7 Sec. (12.2-14.9) H 11/13/16 20:49 INR 1.19 (0.87-1.13) H 11/13/16 20:49 D-Dimer 2565.21 ng/mlDDU (0-234) H 11/13/16 20:49 POC ABG pH 7.488 (7.35-7.45) H 11/15/16 04:52 POC ABG pCO2 45.4 (35-45) H 11/15/16 04:52 POC ABG pO2 72 (80-105) L 11/15/16 04:52 POC ABG HCO3 34.4 11/15/16 04:52 POC ABG Total CO2 36 11/15/16 04:52 POC ABG O2 Sat 95 11/15/16 04:52 POC ABG Base Excess 11 11/15/16 04:52 VBG pH 7.319 (7.320-7.420) L 11/13/16 20:49 FiO2 40 % 11/15/16 04:52 Sodium 141 mmol/L (137-145) D 11/15/16 04:13 Potassium 3.4 mmol/L (3.6-5.0) L D 11/15/16 04:13 Chloride 101.3 mmol/L (98-107) 11/15/16 04:13 Carbon Dioxide 31 mmol/L (22-30) H 11/15/16 04:13 Anion Gap 12 mmol/L 11/15/16 04:13 BUN 14 mg/dL (9-20) 11/15/16 04:13 Creatinine 0.4 mg/dL (0.8-1.5) L 11/15/16 04:13 Estimated GFR > 60 ml/min 11/15/16 04:13 BUN/Creatinine Ratio 35.00 % 11/15/16 04:13 Glucose 103 mg/dL (75-100) H 11/15/16 04:13 POC Glucose 91 (70-105) 11/15/16 05:34 Lactic Acid 2.00 mmol/L (0.7-2.0) 11/14/16 03:04 Calcium 8.5 mg/dL (8.4-10.2) 11/15/16 04:13 Total Bilirubin 0.30 mg/dL (0.1-1.2) 11/13/16 20:49 AST 27 units/L (5-40) 11/13/16 20:49 ALT 15 units/L (7-56) 11/13/16 20:49 Alkaline Phosphatase 103 units/L (35-129) 11/13/16 20:49 C-Reactive Protein 23.10 mg/dL (0.00-1.30) H 11/14/16 10:30 Total Protein 7.7 g/dL (6.3-8.2) 11/13/16 20:49 Albumin 2.7 g/dL (3.9-5) L 11/13/16 20:49 Albumin/Globulin Ratio 0.5 % 11/13/16 20:49 Urine Color Yellow (Yellow) 11/13/16 21:40 Urine Turbidity Clear (Clear) 11/13/16 21:40 Urine pH 7.0 (5.0-7.0) 11/13/16 21:40 Ur Specific [place] 1.008 (1.003-1.030) 11/13/16 21:40 Urine Protein <15 mg/dl mg/dL (Negative) 11/13/16 21:40 Urine Glucose (UA) Neg mg/dL (Negative) 11/13/16 21:40 Urine Ketones Neg mg/dL (Negative) 11/13/16 21:40 Urine Blood Lg (Negative) 11/13/16 21:40 Urine Nitrite Neg (Negative) 11/13/16 21:40 Urine Bilirubin Neg (Negative) 11/13/16 21:40 Urine Urobilinogen < 2.0 mg/dL (<2.0) 11/13/16 21:40 Ur Leukocyte Esterase Lg (Negative) 11/13/16 21:40 Urine WBC (Auto) 4.0 /HPF (0.0-6.0) 11/13/16 21:40 Urine RBC (Auto) 3.0 /HPF (0.0-6.0) 11/13/16 21:40 Urine Bacteria (Auto) 1+ /HPF (Negative) 11/13/16 21:40 Urine Mucus Few /HPF 11/13/16 21:40 Blood Type O POSITIVE 11/14/16 03:00 FREDDIE Antibody Screen Negative 11/14/16 03:00
[2016-11-15] MEDS: ZOSYN/NS 4.5GM/100ML 4.5 GM/100 ML VIAL IV SCH ×2 (09:13→17:57)
[2016-11-15] MEDS: LOVENOX SUB-Q SCH (09:15)
[2016-11-15] MEDS: PEPCID PO SCH ×2 (09:15→22:10)
--- NOTE | 2016-11-15 10:45 | Progress Note ---
Assessment and Plan - Patient Problems (1) Acute hypoxemic respiratory failure Current Visit: Yes Status: Acute Plan to address problem: - continue aspiration precautions / VAP bundles - continue bronchodilators and pulmonary toilet - s/p bronchoscopy with suction of secretions re" Atelectasis - continue to wean oxygen for O2 Sats >/= 94% (Increased FiO2 to 100% post pneumothorax) - hold PSV trials - s/p chest tube placement to right pleural space (2) Atelectasis of both lungs Current Visit: Yes Status: Acute Plan to address problem: - s/p bronchoscopy with suction of airway secretions - reduced Peep to 5 due to pneumothorax though (3) Pneumothorax on right Current Visit: Yes Status: Acute Plan to address problem: - s/p chest tube - reduced Peep to 5 (4) Pneumonia Current Visit: Yes Status: Acute Qualifiers: Pneumonia type: due to unspecified organism Aspiration pneumonia type: A Laterality: bilateral Lung location: lower lobe of lung Qualified Code(s): J18.9 - Pneumonia, unspecified organism (5) Encephalopathy acute Current Visit: No Status: Acute Plan to address problem: - improved - wean of sedation used during bronchoscopy and chest tube placement (6) Sepsis syndrome Current Visit: No Status: Acute Plan to address problem: - continue levaquin monotherapy - follow cultures (7) Discharge planning issues Current Visit: Yes Status: Acute Plan to address problem: - he is critically ill on life sustaining interventions including MVS and at high risk for further deterioration including ...40' CCT without overlap Subjective Date of service: 11/15/16 Principal diagnosis: Acute on Chronic Hypoxemic Respiratory Failure; Sepsis Syndrome Interval history: Seen and examined at bedside; 24 hour events reviewed; nursing and respiratory care staff consulted; no adverse overnight events reported to me; remains on MVS ; tolerating PSV trial however decompensated and found with acute pneumothorax; denies acute chest pains; no emesis or overt aspiration Objective Vital Signs - 12hr 11/14/16 11/14/16 11/14/16 23:00 23:26 23:30 Temperature Pulse Rate 77 89 86 Pulse Rate [ Anterior Bilateral] Pulse Rate [ From Monitor] Respiratory 16 22 22 Rate Respiratory Rate [Anterior Bilateral] Blood Pressure 98/64 98/64 103/61 O2 Sat by Pulse 93 95 96 Oximetry 11/14/16 11/15/16 11/15/16 23:58 00:00 00:10 Temperature 99.3 F Pulse Rate 96 H 94 H Pulse Rate [ Anterior Bilateral] Pulse Rate [ From Monitor] Respiratory 22 Rate Respiratory Rate [Anterior Bilateral] Blood Pressure 99/59 99/59 O2 Sat by Pulse 97 97 Oximetry 11/15/16 11/15/16 11/15/16 00:30 01:00 01:30 Temperature Pulse Rate 88 86 84 Pulse Rate [ Anterior Bilateral] Pulse Rate [ From Monitor] Respiratory 24 22 25 H Rate Respiratory Rate [Anterior Bilateral] Blood Pressure 103/62 99/64 107/68 O2 Sat by Pulse 96 98 96 Oximetry 11/15/16 11/15/16 11/15/16 02:00 02:30 03:00 Temperature Pulse Rate 97 H 90 85 Pulse Rate [ Anterior Bilateral] Pulse Rate [ From Monitor] Respiratory 20 19 23 Rate Respiratory Rate [Anterior Bilateral] Blood Pressure 88/59 98/56 95/55 O2 Sat by Pulse 96 97 96 Oximetry 11/15/16 11/15/16 11/15/16 03:27 03:30 03:31 Temperature 100.1 F H Pulse Rate 91 H Pulse Rate [ 74 Anterior Bilateral] Pulse Rate [ From Monitor] Respiratory 22 Rate Respiratory 14 Rate [Anterior Bilateral] Blood Pressure 99/59 O2 Sat by Pulse 98 Oximetry 11/15/16 11/15/16 11/15/16 04:00 04:30 05:00 Temperature Pulse Rate 91 H 89 82 Pulse Rate [ Anterior Bilateral] Pulse Rate [ 88 From Monitor] Respiratory 22 25 H 19 Rate Respiratory Rate [Anterior Bilateral] Blood Pressure 99/59 101/60 98/63 O2 Sat by Pulse 96 95 94 Oximetry 11/15/16 11/15/16 11/15/16 05:30 06:00 06:30 Temperature Pulse Rate 86 88 80 Pulse Rate [ Anterior Bilateral] Pulse Rate [ From Monitor] Respiratory 21 19 19 Rate Respiratory Rate [Anterior Bilateral] Blood Pressure 99/66 105/62 99/64 O2 Sat by Pulse 97 96 96 Oximetry 11/15/16 11/15/16 11/15/16 07:00 07:30 08:00 Temperature 99.3 F Pulse Rate 83 88 79 Pulse Rate [ Anterior Bilateral] Pulse Rate [ From Monitor] Respiratory 20 21 19 Rate Respiratory Rate [Anterior Bilateral] Blood Pressure 104/65 104/65 105/67 O2 Sat by Pulse 77 L 97 Oximetry 07/11/15/16 11/15/16 08:30 08:44 08:51 Temperature Pulse Rate 92 H 90 Pulse Rate [ 80 Anterior Bilateral] Pulse Rate [ From Monitor] Respiratory 17 25 H Rate Respiratory 21 Rate [Anterior Bilateral] Blood Pressure 105/67 106/75 O2 Sat by Pulse 96 95 Oximetry 11/15/16 11/15/16 11/15/16 09:00 09:30 10:00 Temperature Pulse Rate 80 84 82 Pulse Rate [ Anterior Bilateral] Pulse Rate [ From Monitor] Respiratory 19 20 18 Rate Respiratory Rate [Anterior Bilateral] Blood Pressure 101/62 105/59 105/66 O2 Sat by Pulse 96 95 95 Oximetry 11/15/16 10:30 Temperature Pulse Rate 82 Pulse Rate [ Anterior Bilateral] Pulse Rate [ From Monitor] Respiratory 20 Rate Respiratory Rate [Anterior Bilateral] Blood Pressure 107/69 O2 Sat by Pulse 97 Oximetry Constitutional: no acute distress, other (somnolent; mild cognitive dysfunction) Eyes: non-icteric ENT: oropharynx moist Neck: supple, no lymphadenopathy Effort: mildly labored Ascultation: Right: diminished breath sounds, Bilateral: rales Cardiovascular: regular rate and rhythm Gastrointestinal: normoactive bowel sounds, soft, non-tender, non-distended Integumentary: normal Extremities: no cyanosis, no edema, pink and warm, pulses normal Neurologic: pupils equal and round, unable to assess Psychiatric: other (cannot assess re cognitive dysfunction) CBC and BMP: 11/15/16 04:13 11/15/16 04:13 ABG, PT/INR, D-dimer: ABG POC ABG pH 7.488 (7.35-7.45) H 11/15/16 04:52 POC ABG pCO2 45.4 (35-45) H 11/15/16 04:52 POC ABG pO2 72 (80-105) L 11/15/16 04:52 POC ABG HCO3 34.4 11/15/16 04:52 POC ABG Total CO2 36 11/15/16 04:52 POC ABG O2 Sat 95 11/15/16 04:52 PT/INR, D-dimer PT 15.7 Sec. (12.2-14.9) H 11/13/16 20:49 INR 1.19 (0.87-1.13) H 11/13/16 20:49 D-Dimer 2565.21 ng/mlDDU (0-234) H 11/13/16 20:49 Abnormal lab findings: Abnormal Labs 11/14/16 11/14/16 11/14/16 00:49 05:49 10:30 WBC RBC Hgb Hct RDW Lymph % (Auto) [place] % (Auto) Lymph # [place] # Seg Neutrophils % Seg Neutrophils # POC ABG pH 7.455 H POC ABG pCO2 54.2 H 46.9 H POC ABG pO2 109 H Potassium Carbon Dioxide Creatinine Glucose POC Glucose C-Reactive Protein 23.10 H 11/14/16 11/14/16 11/15/16 13:20 23:26 04:13 WBC 16.1 H RBC 3.08 L Hgb 9.4 L Hct 28.4 L D RDW 15.8 H Lymph % (Auto) 6.1 L [place] % (Auto) 8.5 H Lymph # 1.0 L [place] # 1.4 H Seg Neutrophils % 84.7 H Seg Neutrophils # 13.6 H POC ABG pH 7.454 H POC ABG pCO2 POC ABG pO2 69 L Potassium Carbon Dioxide Creatinine Glucose POC Glucose 118 H C-Reactive Protein 11/15/16 11/15/16 04:13 04:52 WBC RBC Hgb Hct RDW Lymph % (Auto) [place] % (Auto) Lymph # [place] # Seg Neutrophils % Seg Neutrophils # POC ABG pH 7.488 H POC ABG pCO2 45.4 H POC ABG pO2 72 L Potassium 3.4 L D Carbon Dioxide 31 H Creatinine 0.4 L Glucose 103 H POC Glucose C-Reactive Protein Chest x-ray: image reviewed
--- NOTE | 2016-11-15 11:59 | XRay Report ---
PORTABLE CHEST INDICATION: Vent protocol. COMPARISON: 11/13/2016 FINDINGS: Portable, frontal chest radiograph demonstrates a new, approximately 30-40% right pneumothorax with maximal horizontal pleural separation of approximately 3.2 cm inferiorly. Partial collapse/consolidation/infiltrates in both lungs inferomedially again noted with mild hazy opacity/pleural fluid partly obscuring the left hemidiaphragm. Normal cardiomediastinal silhouette. Slight aortic knob calcifications. EKG leads. Tracheostomy tube. Intact bones. Possible G-tube. CAT BREEDER shunt courses over the right hemithorax. CONCLUSION: New right pneumothorax with various other findings, as detailed above. I phoned the above results to Ms. Marina, patient's nurse, 11:45 AM, 11/15/2016. Thank you for the opportunity to participate in this patient's care.
[2016-11-15] MEDS ORDERED: NACL 0.9% 1,000 ML IR ONE (12:04)
[2016-11-15] MEDS ORDERED: XYLOCAINE 2% INFILTRATI ONE (12:04)
[2016-11-15] MEDS ORDERED: DIPRIVAN 10 MG/ML 1,000 MG/100 ML BOTTLE IV ONE (12:09)
[2016-11-15] MEDS ORDERED: fentaNYL DRIP Premix 2,000 MCG/100 ML BAG IV ONE (12:11)
[2016-11-15] MEDS ORDERED: PROAIR IH PRN (14:03)
--- NOTE | 2016-11-15 14:15 | XRay Report ---
PORTABLE CHEST INDICATION: Status post chest tube insertion. COMPARISON: 11:24 AM earlier today. FINDINGS: Portable, frontal chest radiograph, 1:40 PM, 11/15/2016 demonstrates new right chest tube with its side port and tip now projecting over the spine. Interval reexpansion of the right lung. Stable remainder exam. CONCLUSION: Interval resolution of right pneumothorax secondary to chest tube placement that may be retracted approximately 5 cm for more optimal placement of its tip and side-port, as detailed above. I phoned the above results to patient's nurse, Ms. Marina, 2 PM, 11/15/2016. Thank you for the opportunity to participate in this patient's care.
[2016-11-15] MEDS ORDERED: PROVENTIL IH PRN (14:46)
--- NOTE | 2016-11-15 16:13 | Procedure Note ---
Date of procedure: 11/15/16 Pre-op diagnosis: 1. Right Pneumothorax 2. Bilateral lower lobe atelectasis Post-op diagnosis: same Procedure: 1. Right Chest Tube Placement (Full dictation # [id number]) 2. Fiberoptic Bronchoscopy with bronchial washings and suction of secretions ( Full dictation # [id number]) Please see dictated notes for full details
[2016-11-15] MEDS: LEVAQUIN 750MG/150ML 750 MG/150 ML BAG IV SCH (22:09)
[2016-11-15] MEDS: TYLENOL PO PRN (22:10)
[2016-11-15] MEDS: COLACE PO SCH (22:11)
[2016-11-15] MEDS: KEPPRA PO SCH (22:11)
--- NOTE | 2016-11-15 22:17 | Operative Report ---
PROCEDURE: Fiberoptic bronchoscopy with bronchial washings and suction of secretions. INDICATIONS: Bilateral large volume lower lobe atelectasis in a patient with respiratory failure, on mechanical ventilation. CONSENT: Informed and witnessed consent obtained from the patient himself. COMPLICATIONS: No immediate procedural complications. DESCRIPTION OF PROCEDURE: After premedication as well as sedation, the fiberoptic bronchoscope was passed through the Bodai valve and advanced into the trachea through the tracheostomy tube. From the level of the tara, I could see mucus in both left lower lobe as well as the right lower lobe basilar segments. Fiberoptic bronchoscope was advanced into the left bronchial tree. Minimal secretions were suctioned out of the left upper lobe and lingular regions. The basilar segments contained a lot more mucus. I suctioned the airways clear as much as I could and then the right bronchial tree was entered. Again, secretions were mostly in the basilar segments. I suctioned out thick tenacious mucus having to come out once or twice to flush out the bronchoscope tube and resume suctioning. After this was done, the patient was ____. I did not see any significant secretions arising from below the bronchial tree. The fiberoptic bronchoscope was then again withdrawn through the Bodai valve. The patient tolerated the procedure well. Post-procedure chest x-ray has been ordered. This procedure was done after the chest tube was placed to improve localization of the airways and hopefully aid suctioning of secretions. JOB# [id number] PEE/FLO
[2016-11-16] MEDS: NOVOLOG SUB-Q SCH ×3 (00:18→20:25)
[2016-11-16] MEDS: ZOSYN/NS 4.5GM/100ML 4.5 GM/100 ML VIAL IV SCH ×3 (00:31→20:39)
[2016-11-16] MEDS: DUONEB *Not for PRN Use IH SCH ×4 (01:47→19:56)
[2016-11-16 05:20] LABS: Basophils % (Auto) 0.4 % (0.0-1.8); Eosinophils % (Auto) 2.1 % (0.0-4.3); Hematocrit 28.4 % (35.5-45.6); Hemoglobin 9.2 gm/dl (11.8-15.2); Mean Corpuscular HGB Conc 32 % (32-34); Mean Corpuscular Hemoglobin 31 pg (28-32); Mean Corpuscular Volume 95 fl (84-94); Platelet Count 228 K/mm3 (140-440); White Blood Count 10.4 K/mm3 (4.5-11.0)
[2016-11-16 05:37] LABS: Anion Gap 16 mmol/L; Blood Urea Nitrogen 16 mg/dL (9-20); Calcium 8.6 mg/dL (8.4-10.2); Carbon Dioxide 28 mmol/L (22-30); Chloride 100.7 mmol/L (98-107); Glucose 96 mg/dL (75-100); Potassium 3.4 mmol/L (3.6-5.0); Sodium 141 mmol/L (137-145)
--- NOTE | 2016-11-16 07:30 | XRay Report ---
AP CHEST: HISTORY: Follow up right pneumothorax Compared to 11/15/16. Tracheostomy and right chest tube are unchanged. No recurrent or residual right pneumothorax is detected. There is partial atelectasis in the middle lobe and left lower lobe. The upper lung zones are clear. Heart size remains within normal limits. IMPRESSION: No right pneumothorax appreciated. Atelectatic changes.
--- NOTE | 2016-11-16 07:32 | Operative Report ---
PROCEDURE: Right chest tube placement. INDICATIONS: Spontaneous pneumothorax in a patient on mechanical ventilator, possibly due to positive air pressure ventilation therapy. CONSENT: Informed and witnessed obtained from the patient himself. COMPLICATIONS: No immediate procedural complications. PROCEDURE DETAILS: After informed and witnessed consent, the area of the right upper lateral chest wall at the intersection of the mid axillary line with the nipple line was sterilely prepped and draped. Full sterile technique was used including hat, gown, mask, sterile gloves, sterile gown and sterile drape. A generous local anesthetic agent was used 2% lidocaine with epinephrine. The patient was also placed on propofol and fentanyl drip for the procedure. A small incision was made at the intersection of the mid axillary line and right nipple line. With Tosha forceps blunt dissection was done until the pleural space was entered, lisa of air could be had after that was done. A 20-[place] chest tube was then introduced into the pleural space and advanced superomedially. It was sutured in place and tied in place around 14 to 16 cm on the chest wall, it was connected to vacutainer and connected to continuous suction, good pulmonary excursions could be seen. Bleeding was minimal. The patient tolerated the procedure well. The stoma/wound was then covered and sutured with Vaseline gauze and then silk sutures over the gauze itself. The patient tolerated the procedure well. No immediate procedural complications. Postprocedure chest x-ray has been ordered and will be followed. JOB# [id number] PEE/FLO MALONEY
--- NOTE | 2016-11-16 09:39 | Progress Note ---
Assessment and Plan - Patient Problems (1) Acute hypoxemic respiratory failure Current Visit: Yes Status: Acute Plan to address problem: - continue aspiration precautions / VAP bundles - continue bronchodilators and pulmonary toilet - s/p bronchoscopy with suction of secretions re" Atelectasis - continue to wean oxygen for O2 Sats >/= 94% (Increased FiO2 to 100% post pneumothorax) - hold PSV trials - s/p chest tube placement to right pleural space - T-piece trials in am tomorrow as tolerated if tolerates PSV today (2) Atelectasis of both lungs Current Visit: Yes Status: Acute Plan to address problem: - s/p bronchoscopy with suction of airway secretions - reduced Peep to 5 due to pneumothorax though (3) Pneumothorax on right Current Visit: Yes Status: Acute Plan to address problem: - s/p chest tube - reduced Peep to 5 (4) Pneumonia Current Visit: Yes Status: Acute Qualifiers: Pneumonia type: due to unspecified organism Aspiration pneumonia type: A Laterality: bilateral Lung location: lower lobe of lung Qualified Code(s): J18.9 - Pneumonia, unspecified organism Plan to address problem: - follow BAL studies - growing gram negative rods X 2 on tracheal aspirate sent prior - continue empiric levaquin (5) Encephalopathy acute Current Visit: No Status: Acute Plan to address problem: - improved - wean of sedation used during bronchoscopy and chest tube placement (6) Sepsis syndrome Current Visit: No Status: Acute Plan to address problem: - continue levaquin monotherapy - follow cultures (7) Discharge planning issues Current Visit: Yes Status: Acute Plan to address problem: - he is critically ill on life sustaining interventions including MVS and at high risk for further deterioration including ...30' CCT without overlap Subjective Date of service: 11/16/16 Principal diagnosis: Acute on Chronic Hypoxemic Respiratory Failure; Sepsis Syndrome Interval history: Seen and examined at bedside; 24 hour events reviewed; nursing and respiratory care staff consulted; no adverse overnight events reported to me; remains on MVS but tolerating well; FiO2 down to 40%; follows questions appropriately; no emesis or overt aspiration; denies acute chest pains; no seizure activity and no gross bleeding; chest tube in place without air leak Objective Vital Signs - 12hr 11/15/16 11/15/16 11/15/16 22:00 22:30 22:56 Temperature Pulse Rate 77 72 63 Pulse Rate [ Anterior Bilateral Throughout] Pulse Rate [ Anterior Bilateral] Pulse Rate [ From Monitor] Respiratory 20 17 12 Rate Respiratory Rate [Anterior Bilateral Throughout] Respiratory Rate [Anterior Bilateral] Blood Pressure 93/56 86/52 86/52 O2 Sat by Pulse 100 96 Oximetry O2 Sat by Pulse Oximetry [ Assessment] 11/15/16 11/15/16 11/16/16 23:00 23:30 00:00 Temperature 97.7 F Pulse Rate 63 73 66 Pulse Rate [ Anterior Bilateral Throughout] Pulse Rate [ Anterior Bilateral] Pulse Rate [ 64 From Monitor] Respiratory 12 12 14 Rate Respiratory Rate [Anterior Bilateral Throughout] Respiratory Rate [Anterior Bilateral] Blood Pressure 87/55 89/54 93/59 O2 Sat by Pulse 98 100 100 Oximetry O2 Sat by Pulse Oximetry [ Assessment] 11/16/16 11/16/16 11/16/16 00:30 01:00 01:30 Temperature Pulse Rate 64 68 66 Pulse Rate [ Anterior Bilateral Throughout] Pulse Rate [ Anterior Bilateral] Pulse Rate [ From Monitor] Respiratory 12 12 12 Rate Respiratory Rate [Anterior Bilateral Throughout] Respiratory Rate [Anterior Bilateral] Blood Pressure 87/58 89/60 89/56 O2 Sat by Pulse 100 100 100 Oximetry O2 Sat by Pulse Oximetry [ Assessment] 11/16/16 11/16/16 11/16/16 02:00 02:10 02:22 Temperature Pulse Rate 61 Pulse Rate [ Anterior Bilateral Throughout] Pulse Rate [ 72 68 Anterior Bilateral] Pulse Rate [ From Monitor] Respiratory 14 Rate Respiratory Rate [Anterior Bilateral Throughout] Respiratory 23 20 Rate [Anterior Bilateral] Blood Pressure 93/61 O2 Sat by Pulse 100 Oximetry O2 Sat by Pulse Oximetry [ Assessment] 11/16/16 11/16/16 11/16/16 02:30 02:37 03:00 Temperature Pulse Rate 70 64 Pulse Rate [ Anterior Bilateral Throughout] Pulse Rate [ Anterior Bilateral] Pulse Rate [ From Monitor] Respiratory 16 25 H Rate Respiratory Rate [Anterior Bilateral Throughout] Respiratory Rate [Anterior Bilateral] Blood Pressure 93/61 92/59 O2 Sat by Pulse 100 Oximetry O2 Sat by Pulse 100 Oximetry [ Assessment] 11/16/16 11/16/16 11/16/16 03:30 03:39 04:00 Temperature 98.1 F Pulse Rate 66 65 Pulse Rate [ Anterior Bilateral Throughout] Pulse Rate [ Anterior Bilateral] Pulse Rate [ From Monitor] Respiratory 19 13 Rate Respiratory Rate [Anterior Bilateral Throughout] Respiratory Rate [Anterior Bilateral] Blood Pressure 102/64 101/63 O2 Sat by Pulse 100 Oximetry O2 Sat by Pulse Oximetry [ Assessment] 11/16/16 11/16/16 11/16/16 04:20 04:30 05:00 Temperature Pulse Rate 78 65 68 Pulse Rate [ Anterior Bilateral Throughout] Pulse Rate [ Anterior Bilateral] Pulse Rate [ From Monitor] Respiratory 13 19 Rate Respiratory Rate [Anterior Bilateral Throughout] Respiratory Rate [Anterior Bilateral] Blood Pressure 103/62 103/62 92/61 O2 Sat by Pulse 100 Oximetry O2 Sat by Pulse Oximetry [ Assessment] 11/16/16 11/16/16 11/16/16 05:30 06:00 07:22 Temperature Pulse Rate 66 68 61 Pulse Rate [ 63 Anterior Bilateral Throughout] Pulse Rate [ Anterior Bilateral] Pulse Rate [ From Monitor] Respiratory 14 14 18 Rate Respiratory 20 Rate [Anterior Bilateral Throughout] Respiratory Rate [Anterior Bilateral] Blood Pressure 102/68 99/64 98/63 O2 Sat by Pulse 97 Oximetry O2 Sat by Pulse Oximetry [ Assessment] 11/16/16 07:45 Temperature Pulse Rate 71 Pulse Rate [ 68 Anterior Bilateral Throughout] Pulse Rate [ Anterior Bilateral] Pulse Rate [ From Monitor] Respiratory 18 Rate Respiratory 14 Rate [Anterior Bilateral Throughout] Respiratory Rate [Anterior Bilateral] Blood Pressure 106/68 O2 Sat by Pulse 97 Oximetry O2 Sat by Pulse Oximetry [ Assessment] Constitutional: no acute distress, other (somnolent; mild cognitive dysfunction) Eyes: non-icteric ENT: oropharynx moist Neck: supple, no lymphadenopathy Effort: mildly labored Ascultation: Bilateral: rales Cardiovascular: regular rate and rhythm Gastrointestinal: normoactive bowel sounds, soft, non-tender, non-distended Integumentary: normal Extremities: no cyanosis, no edema, pink and warm, pulses normal Neurologic: normal mental status, non-focal exam (post-CVA hemiparesis; 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 (12.2-14.9) H 11/13/16 20:49 INR 1.19 (0.87-1.13) H 11/13/16 20:49 D-Dimer 2565.21 ng/mlDDU (0-234) H 11/13/16 20:49 Abnormal lab findings: Abnormal Labs 11/14/16 11/14/16 11/14/16 00:49 05:49 10:30 WBC RBC Hgb Hct MCV RDW Lymph % (Auto) [place] % (Auto) Lymph # [place] # Seg Neutrophils % Seg Neutrophils # POC ABG pH 7.455 H POC ABG pCO2 54.2 H 46.9 H POC ABG pO2 109 H Potassium Carbon Dioxide Creatinine Glucose POC Glucose C-Reactive Protein 23.10 H 11/14/16 11/14/16 11/15/16 13:20 23:26 04:13 WBC 16.1 H RBC 3.08 L Hgb 9.4 L Hct 28.4 L D MCV RDW 15.8 H Lymph % (Auto) 6.1 L [place] % (Auto) 8.5 H Lymph # 1.0 L [place] # 1.4 H Seg Neutrophils % 84.7 H Seg Neutrophils # 13.6 H POC ABG pH 7.454 H POC ABG pCO2 POC ABG pO2 69 L Potassium Carbon Dioxide Creatinine Glucose POC Glucose 118 H C-Reactive Protein 11/15/16 11/15/16 11/15/16 04:13 04:52 23:40 WBC RBC Hgb Hct MCV RDW Lymph % (Auto) [place] % (Auto) Lymph # [place] # Seg Neutrophils % Seg Neutrophils # POC ABG pH 7.488 H POC ABG pCO2 45.4 H POC ABG pO2 72 L Potassium 3.4 L D Carbon Dioxide 31 H Creatinine 0.4 L Glucose 103 H POC Glucose 106 H C-Reactive Protein 11/16/16 11/16/16 04:57 04:57 WBC RBC 3.00 L Hgb 9.2 L Hct 28.4 L MCV 95 H RDW 16.0 H Lymph % (Auto) 10.6 L [place] % (Auto) 8.7 H Lymph # 1.1 L [place] # 0.9 H Seg Neutrophils % 78.2 H Seg Neutrophils # 8.2 H POC ABG pH POC ABG pCO2 POC ABG pO2 Potassium 3.4 L Carbon Dioxide Creatinine 0.4 L Glucose POC Glucose C-Reactive Protein Chest x-ray: image reviewed
--- NOTE | 2016-11-16 09:50 | Progress Note ---
Assessment and Plan Assessment and plan: --Hypokalemia; replacement per protocol and monitor levels --Right pneumothorax: s/p right chest tube placement with drainage --Acute on chronic hypoxemic respiratory failure/tracheostomy; on ventilatory support Nebulizers, IV steroids and IV antibiotics, inhalation steroids Status post bronchoscopy with suctioning of secretions, pulmonary following --Bilateral pneumonia/atelectasis s/p bronchoscopy, suctioning secretions, supportive care --Sepsis secondary to bilateral pneumonia; continue current antibiotics Zosyn and Levaquin, --Type 2 diabetes mellitus; Accu-Chek sliding scale coverage and ADA diet and insulin --History of seizure disorder Seizure precautions, continue antiepileptic medications --DVT prophylaxis; Lovenox --CODE STATUS full code --Discharge planning per case management Plan of care discussed with patient's nurse and case management Consults and recommendations noted and appreciated Critical care time 31 minutes Hospitalist Physical - Constitutional Vitals: Temp Pulse Resp BP Pulse Ox 98.2 F 68 14 106/68 97 11/16/16 08:00 11/16/16 07:45 11/16/16 07:45 11/16/16 07:45 11/16/16 07:45 General appearance: Present: no acute distress, cachectic, disheveled - EENT Eyes: Present: PERRL, EOM intact ENT: other (status post tracheostomy) - Neck Neck: Present: supple, normal ROM - Respiratory Respiratory effort: normal Respiratory: bilateral: diminished, rhonchi, negative: rales, wheezing - Cardiovascular Rhythm: regular Heart Sounds: Present: S1 & S2 - Extremities Extremities: no ischemia, No edema - Abdominal General gastrointestinal: soft, non-tender, non-distended, normal bowel sounds - Integumentary Integumentary: Present: clear, warm - Psychiatric Psychiatric: other (patient underwent noncommunicative) - Neurologic Neurologic: other (noncommunicative) Results - Labs CBC & Chem 7: 11/16/16 04:57 11/16/16 04:57 Labs: Laboratory Last Values WBC 10.4 K/mm3 (4.5-11.0) 11/16/16 04:57 RBC 3.00 M/mm3 (3.65-5.03) L 11/16/16 04:57 Hgb 9.2 gm/dl (11.8-15.2) L 11/16/16 04:57 Hct 28.4 % (35.5-45.6) L 11/16/16 04:57 MCV 95 fl (84-94) H 11/16/16 04:57 MCH 31 pg (28-32) 11/16/16 04:57 MCHC 32 % (32-34) 11/16/16 04:57 RDW 16.0 % (13.2-15.2) H 11/16/16 04:57 Plt Count 228 K/mm3 (140-440) 11/16/16 04:57 Lymph % (Auto) 10.6 % (13.4-35.0) L 11/16/16 04:57 [place] % (Auto) 8.7 % (0.0-7.3) H 11/16/16 04:57 Eos % (Auto) 2.1 % (0.0-4.3) 11/16/16 04:57 Baso % (Auto) 0.4 % (0.0-1.8) 11/16/16 04:57 Lymph # 1.1 K/mm3 (1.2-5.4) L 11/16/16 04:57 [place] # 0.9 K/mm3 (0.0-0.8) H 11/16/16 04:57 Eos # 0.2 K/mm3 (0.0-0.4) 11/16/16 04:57 Baso # 0.0 K/mm3 (0.0-0.1) 11/16/16 04:57 Seg Neutrophils % 78.2 % (40.0-70.0) H 11/16/16 04:57 Seg Neutrophils # 8.2 K/mm3 (1.8-7.7) H 11/16/16 04:57 PT 15.7 Sec. (12.2-14.9) H 11/13/16 20:49 INR 1.19 (0.87-1.13) H 11/13/16 20:49 D-Dimer 2565.21 ng/mlDDU (0-234) H 11/13/16 20:49 POC ABG pH 7.488 (7.35-7.45) H 11/15/16 04:52 POC ABG pCO2 45.4 (35-45) H 11/15/16 04:52 POC ABG pO2 72 (80-105) L 11/15/16 04:52 POC ABG HCO3 34.4 11/15/16 04:52 POC ABG Total CO2 36 11/15/16 04:52 POC ABG O2 Sat 95 11/15/16 04:52 POC ABG Base Excess 11 11/15/16 04:52 VBG pH 7.319 (7.320-7.420) L 11/13/16 20:49 FiO2 40 % 11/15/16 04:52 Sodium 141 mmol/L (137-145) 11/16/16 04:57 Potassium 3.4 mmol/L (3.6-5.0) L 11/16/16 04:57 Chloride 100.7 mmol/L (98-107) 11/16/16 04:57 Carbon Dioxide 28 mmol/L (22-30) 11/16/16 04:57 Anion Gap 16 mmol/L 11/16/16 04:57 BUN 16 mg/dL (9-20) 11/16/16 04:57 Creatinine 0.4 mg/dL (0.8-1.5) L 11/16/16 04:57 Estimated GFR > 60 ml/min 11/16/16 04:57 BUN/Creatinine Ratio 40.00 % 11/16/16 04:57 Glucose 96 mg/dL (75-100) 11/16/16 04:57 POC Glucose 99 (70-105) 11/16/16 04:02 Lactic Acid 2.00 mmol/L (0.7-2.0) 11/14/16 03:04 Calcium 8.6 mg/dL (8.4-10.2) 11/16/16 04:57 Magnesium 1.70 mg/dL (1.7-2.3) 11/16/16 04:57 Total Bilirubin 0.30 mg/dL (0.1-1.2) 11/13/16 20:49 AST 27 units/L (5-40) 11/13/16 20:49 ALT 15 units/L (7-56) 11/13/16 20:49 Alkaline Phosphatase 103 units/L (35-129) 11/13/16 20:49 C-Reactive Protein 23.10 mg/dL (0.00-1.30) H 11/14/16 10:30 Total Protein 7.7 g/dL (6.3-8.2) 11/13/16 20:49 Albumin 2.7 g/dL (3.9-5) L 11/13/16 20:49 Albumin/Globulin Ratio 0.5 % 11/13/16 20:49 Urine Color Yellow (Yellow) 11/13/16 21:40 Urine Turbidity Clear (Clear) 11/13/16 21:40 Urine pH 7.0 (5.0-7.0) 11/13/16 21:40 Ur Specific [place] 1.008 (1.003-1.030) 11/13/16 21:40 Urine Protein <15 mg/dl mg/dL (Negative) 11/13/16 21:40 Urine Glucose (UA) Neg mg/dL (Negative) 11/13/16 21:40 Urine Ketones Neg mg/dL (Negative) 11/13/16 21:40 Urine Blood Lg (Negative) 11/13/16 21:40 Urine Nitrite Neg (Negative) 11/13/16 21:40 Urine Bilirubin Neg (Negative) 11/13/16 21:40 Urine Urobilinogen < 2.0 mg/dL (<2.0) 11/13/16 21:40 Ur Leukocyte Esterase Lg (Negative) 11/13/16 21:40 Urine WBC (Auto) 4.0 /HPF (0.0-6.0) 11/13/16 21:40 Urine RBC (Auto) 3.0 /HPF (0.0-6.0) 11/13/16 21:40 Urine Bacteria (Auto) 1+ /HPF (Negative) 11/13/16 21:40 Urine Mucus Few /HPF 11/13/16 21:40 Blood Type O POSITIVE 11/14/16 03:00 FREDDIE Antibody Screen Negative 11/14/16 03:00
[2016-11-16] MEDS ORDERED: POTASSIUM CHLORIDE FEEDTUBE NR (10:00)
[2016-11-16] MEDS: LOVENOX SUB-Q SCH (10:46)
[2016-11-16] MEDS: KEPPRA PO SCH ×2 (10:46→21:33)
[2016-11-16] MEDS: PEPCID PO SCH ×2 (10:47→21:38)
[2016-11-16] MEDS: THERAGRAN Tab PO SCH (10:47)
[2016-11-16] MEDS: COLACE PO SCH ×2 (10:47→21:38)
[2016-11-16 11:43] LABS: ISTAT Base Excess 9; ISTAT HCO3 32.8; ISTAT PCO2 48.7 (35-45); ISTAT PH 7.436 (7.35-7.45); ISTAT PO2 70 (80-105); ISTAT SO2 94; ISTAT TCO2 34
[2016-11-16] MEDS: LEVAQUIN 750MG/150ML 750 MG/150 ML BAG IV SCH (21:38)
[2016-11-17] MEDS: NOVOLOG SUB-Q SCH ×4 (00:18→18:32)
[2016-11-17] MEDS: ZOSYN/NS 4.5GM/100ML 4.5 GM/100 ML VIAL IV SCH ×4 (00:42→23:56)
[2016-11-17] MEDS: DUONEB *Not for PRN Use IH SCH ×4 (02:14→19:44)
[2016-11-17 04:18] LABS: ISTAT Base Excess 9; ISTAT HCO3 33.1; ISTAT PCO2 50.6 (35-45); ISTAT PH 7.424 (7.35-7.45); ISTAT PO2 88 (80-105); ISTAT SO2 97; ISTAT TCO2 35
[2016-11-17 04:28] LABS: Basophils % (Auto) 0.5 % (0.0-1.8); Eosinophils % (Auto) 3.4 % (0.0-4.3); Hematocrit 28.6 % (35.5-45.6); Hemoglobin 9.4 gm/dl (11.8-15.2); Mean Corpuscular HGB Conc 33 % (32-34); Mean Corpuscular Hemoglobin 31 pg (28-32); Mean Corpuscular Volume 93 fl (84-94); Platelet Count 252 K/mm3 (140-440); Red Blood Count 3.06 M/mm3 (3.65-5.03); Red Cell Distribution Width 16.2 % (13.2-15.2); White Blood Count 8.6 K/mm3 (4.5-11.0)
[2016-11-17 04:36] LABS: Anion Gap 13 mmol/L; Blood Urea Nitrogen 12 mg/dL (9-20); Calcium 8.4 mg/dL (8.4-10.2); Carbon Dioxide 31 mmol/L (22-30); Chloride 100.3 mmol/L (98-107); Glucose 125 mg/dL (75-100); Potassium 3.5 mmol/L (3.6-5.0); Sodium 141 mmol/L (137-145)
[2016-11-17] MEDS: LOVENOX SUB-Q SCH (09:26)
[2016-11-17] MEDS: KEPPRA PO SCH ×2 (09:26→21:28)
[2016-11-17] MEDS: PEPCID PO SCH ×2 (09:27→21:29)
[2016-11-17] MEDS: THERAGRAN Tab PO SCH (09:27)
[2016-11-17] MEDS: COLACE PO SCH ×2 (09:27→21:30)
--- NOTE | 2016-11-17 16:15 | Progress Note ---
Assessment and Plan - Patient Problems (1) Acute hypoxemic respiratory failure Current Visit: Yes Status: Acute Plan to address problem: - continue aspiration precautions / VAP bundles - continue bronchodilators and pulmonary toilet - s/p bronchoscopy with suction of secretions re" Atelectasis - continue to wean oxygen for O2 Sats >/= 94% - tolerating PSV trials - s/p chest tube placement to right pleural space - begin t-piece trials as tolerated (2) Atelectasis of both lungs Current Visit: Yes Status: Acute Plan to address problem: - s/p bronchoscopy with suction of airway secretions - reduced Peep to 5 due to pneumothorax though - repeat CXR in am (3) Pneumothorax on right Current Visit: Yes Status: Acute Plan to address problem: - s/p chest tube - reduced Peep to 5 - pull chest tube once off positive pressure ventilation (4) Pneumonia Current Visit: Yes Status: Acute Qualifiers: Pneumonia type: due to unspecified organism Aspiration pneumonia type: A Laterality: bilateral Lung location: lower lobe of lung Qualified Code(s): J18.9 - Pneumonia, unspecified organism Plan to address problem: - continue to follow BAL studies - growing gram negative rods X 2 on tracheal aspirate sent prior (await sensitivities) - continue empiric levaquin (5) Encephalopathy acute Current Visit: No Status: Acute Plan to address problem: - improved - weaned of sedation used during bronchoscopy and chest tube placement (6) Sepsis syndrome Current Visit: No Status: Acute Plan to address problem: - continue levaquin monotherapy - follow cultures and sensitivities (7) Discharge planning issues Current Visit: Yes Status: Acute Plan to address problem: - he is critically ill on life sustaining interventions including MVS and at high risk for further deterioration including ...30' CCT without overlap Subjective Date of service: 11/17/16 Principal diagnosis: Acute on Chronic Hypoxemic Respiratory Failure; Sepsis Syndrome Interval history: Seen and examined at bedside; 24 hour events reviewed; nursing and respiratory care staff consulted; no adverse overnight events reported to me; resting peacefully in bed; denies acute chest or other pain; No N/V/F/C; chest tube in place with minimal drainage Objective Vital Signs - 12hr 11/17/16 11/17/16 11/17/16 04:30 05:00 05:31 Temperature Pulse Rate 60 62 72 Pulse Rate [ Anterior Bilateral Throughout] Pulse Rate [ From Monitor] Respiratory 19 12 13 Rate Respiratory Rate [Anterior Bilateral Throughout] Blood Pressure 88/60 97/63 97/63 O2 Sat by Pulse 97 98 Oximetry O2 Sat by Pulse Oximetry [ Assessment] 11/17/16 11/17/16 11/17/16 06:00 06:30 07:00 Temperature Pulse Rate 62 59 L 59 L Pulse Rate [ Anterior Bilateral Throughout] Pulse Rate [ From Monitor] Respiratory 18 18 19 Rate Respiratory Rate [Anterior Bilateral Throughout] Blood Pressure 106/71 98/62 104/67 O2 Sat by Pulse 100 100 100 Oximetry O2 Sat by Pulse Oximetry [ Assessment] 11/17/16 11/17/16 11/17/16 07:30 07:37 07:56 Temperature 98.0 F Pulse Rate 61 61 Pulse Rate [ 58 L Anterior Bilateral Throughout] Pulse Rate [ From Monitor] Respiratory 17 Rate Respiratory 12 Rate [Anterior Bilateral Throughout] Blood Pressure 105/66 105/66 O2 Sat by Pulse 98 99 Oximetry O2 Sat by Pulse Oximetry [ Assessment] 11/17/16 11/17/16 11/17/16 08:00 08:07 08:30 Temperature Pulse Rate 62 65 Pulse Rate [ 62 Anterior Bilateral Throughout] Pulse Rate [ 56 L From Monitor] Respiratory 12 13 Rate Respiratory 14 Rate [Anterior Bilateral Throughout] Blood Pressure 109/61 105/63 O2 Sat by Pulse 100 100 Oximetry O2 Sat by Pulse 100 Oximetry [ Assessment] 11/17/16 11/17/16 11/17/16 09:00 09:30 09:40 Temperature Pulse Rate 64 65 64 Pulse Rate [ Anterior Bilateral Throughout] Pulse Rate [ From Monitor] Respiratory 16 21 16 Rate Respiratory Rate [Anterior Bilateral Throughout] Blood Pressure 99/60 100/61 91/60 O2 Sat by Pulse 98 100 97 Oximetry O2 Sat by Pulse Oximetry [ Assessment] 11/17/16 11/17/16 11/17/16 10:00 10:30 11:00 Temperature Pulse Rate 63 61 65 Pulse Rate [ Anterior Bilateral Throughout] Pulse Rate [ From Monitor] Respiratory 18 17 19 Rate Respiratory Rate [Anterior Bilateral Throughout] Blood Pressure 91/60 98/64 88/54 O2 Sat by Pulse 98 98 99 Oximetry O2 Sat by Pulse Oximetry [ Assessment] 11/17/16 11/17/16 11/17/16 11:30 11:46 12:00 Temperature 98.6 F Pulse Rate 67 66 Pulse Rate [ Anterior Bilateral Throughout] Pulse Rate [ 60 From Monitor] Respiratory 21 22 Rate Respiratory Rate [Anterior Bilateral Throughout] Blood Pressure 96/60 91/55 O2 Sat by Pulse 98 98 Oximetry O2 Sat by Pulse Oximetry [ Assessment] 11/17/16 11/17/16 11/17/16 12:30 12:45 13:00 Temperature Pulse Rate 70 64 73 Pulse Rate [ Anterior Bilateral Throughout] Pulse Rate [ From Monitor] Respiratory 21 18 13 Rate Respiratory Rate [Anterior Bilateral Throughout] Blood Pressure 90/57 90/57 89/56 O2 Sat by Pulse 97 99 98 Oximetry O2 Sat by Pulse Oximetry [ Assessment] 11/17/16 11/17/16 11/17/16 13:24 13:30 13:35 Temperature Pulse Rate 68 Pulse Rate [ 68 70 Anterior Bilateral Throughout] Pulse Rate [ From Monitor] Respiratory 22 Rate Respiratory 14 16 Rate [Anterior Bilateral Throughout] Blood Pressure 94/59 O2 Sat by Pulse 100 Oximetry O2 Sat by Pulse Oximetry [ Assessment] 11/17/16 11/17/16 11/17/16 14:00 14:30 15:00 Temperature Pulse Rate 74 73 72 Pulse Rate [ Anterior Bilateral Throughout] Pulse Rate [ From Monitor] Respiratory 15 22 27 H Rate Respiratory Rate [Anterior Bilateral Throughout] Blood Pressure 88/55 88/55 91/58 O2 Sat by Pulse 97 96 97 Oximetry O2 Sat by Pulse Oximetry [ Assessment] 11/17/16 11/17/16 15:30 15:50 Temperature 99.1 F Pulse Rate 71 Pulse Rate [ Anterior Bilateral Throughout] Pulse Rate [ From Monitor] Respiratory 20 Rate Respiratory Rate [Anterior Bilateral Throughout] Blood Pressure 87/54 O2 Sat by Pulse 98 Oximetry O2 Sat by Pulse Oximetry [ Assessment] Constitutional: no acute distress, other (somnolent; mild cognitive dysfunction) Eyes: non-icteric ENT: oropharynx moist Neck: supple, no lymphadenopathy Effort: mildly labored Ascultation: Bilateral: diminished breath sounds, rales Cardiovascular: regular rate and rhythm Gastrointestinal: normoactive bowel sounds, soft, non-tender, non-distended Integumentary: normal Extremities: no cyanosis, no edema, pink and warm, pulses normal Neurologic: normal mental status, non-focal exam (post-CVA hemiparesis; 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 (12.2-14.9) H 11/13/16 20:49 INR 1.19 (0.87-1.13) H 11/13/16 20:49 D-Dimer 2565.21 ng/mlDDU (0-234) H 11/13/16 20:49 Abnormal lab findings: Abnormal Labs 11/14/16 11/14/16 11/14/16 00:49 05:49 10:30 WBC RBC Hgb Hct MCV RDW Lymph % (Auto) [place] % (Auto) Lymph # [place] # Seg Neutrophils % Seg Neutrophils # POC ABG pH 7.455 H POC ABG pCO2 54.2 H 46.9 H POC ABG pO2 109 H Potassium Carbon Dioxide Creatinine Glucose POC Glucose C-Reactive Protein 23.10 H 11/14/16 11/14/16 11/15/16 13:20 23:26 04:13 WBC 16.1 H RBC 3.08 L Hgb 9.4 L Hct 28.4 L D MCV RDW 15.8 H Lymph % (Auto) 6.1 L [place] % (Auto) 8.5 H Lymph # 1.0 L [place] # 1.4 H Seg Neutrophils % 84.7 H Seg Neutrophils # 13.6 H POC ABG pH 7.454 H POC ABG pCO2 POC ABG pO2 69 L Potassium Carbon Dioxide Creatinine Glucose POC Glucose 118 H C-Reactive Protein 11/15/16 11/15/16 11/15/16 04:13 04:52 23:40 WBC RBC Hgb Hct MCV RDW Lymph % (Auto) [place] % (Auto) Lymph # [place] # Seg Neutrophils % Seg Neutrophils # POC ABG pH 7.488 H POC ABG pCO2 45.4 H POC ABG pO2 72 L Potassium 3.4 L D Carbon Dioxide 31 H Creatinine 0.4 L Glucose 103 H POC Glucose 106 H C-Reactive Protein 11/16/16 11/16/16 11/16/16 04:57 04:57 10:51 WBC RBC 3.00 L Hgb 9.2 L Hct 28.4 L MCV 95 H RDW 16.0 H Lymph % (Auto) 10.6 L [place] % (Auto) 8.7 H Lymph # 1.1 L [place] # 0.9 H Seg Neutrophils % 78.2 H Seg Neutrophils # 8.2 H POC ABG pH POC ABG pCO2 48.7 H POC ABG pO2 70 L Potassium 3.4 L Carbon Dioxide Creatinine 0.4 L Glucose POC Glucose C-Reactive Protein 11/16/16 11/16/16 11/17/16 18:00 23:53 03:33 WBC RBC 3.06 L Hgb 9.4 L Hct 28.6 L MCV RDW 16.2 H Lymph % (Auto) 12.3 L [place] % (Auto) 9.6 H Lymph # 1.1 L [place] # Seg Neutrophils % 74.2 H Seg Neutrophils # POC ABG pH POC ABG pCO2 POC ABG pO2 Potassium Carbon Dioxide Creatinine Glucose POC Glucose 143 H 149 H C-Reactive Protein 11/17/16 11/17/16 11/17/16 03:33 03:39 04:59 WBC RBC Hgb Hct MCV RDW Lymph % (Auto) [place] % (Auto) Lymph # [place] # Seg Neutrophils % Seg Neutrophils # POC ABG pH POC ABG pCO2 50.6 H POC ABG pO2 Potassium 3.5 L Carbon Dioxide 31 H Creatinine 0.3 L Glucose 125 H POC Glucose 140 H C-Reactive Protein 11/17/16 11:26 WBC RBC Hgb Hct MCV RDW Lymph % (Auto) [place] % (Auto) Lymph # [place] # Seg Neutrophils % Seg Neutrophils # POC ABG pH POC ABG pCO2 POC ABG pO2 Potassium Carbon Dioxide Creatinine Glucose POC Glucose 142 H C-Reactive Protein
[2016-11-17] MEDS ORDERED: POTASSIUM CHLORIDE FEEDTUBE ONE (16:16)
[2016-11-17 16:18] LABS: ISTAT Base Excess 13; ISTAT HCO3 36.4; ISTAT PCO2 51.2 (35-45); ISTAT PO2 115 (80-105); ISTAT SO2 99; ISTAT TCO2 38
[2016-11-17] MEDS ORDERED: BUMINATE-5 IV ONE (16:20)
--- NOTE | 2016-11-17 20:05 | Progress Note ---
Assessment and Plan Assessment and Plan Assessment and plan: ----Bilateral pneumonia/atelectasis s/p bronchoscopy, suctioning secretions, supportive care Klebsiella positive in sputum.ID consult requested IV Zosyn for now --Right pneumothorax: s/p right chest tube placement with drainage --Acute on chronic hypoxemic respiratory failure/tracheostomy; on ventilatory support Nebulizers, IV steroids and IV antibiotics, inhalation steroids Status post bronchoscopy with suctioning of secretions, pulmonary following --Sepsis secondary to bilateral pneumonia; continue current antibiotics Zosyn and Levaquin, --Type 2 diabetes mellitus; Accu-Chek sliding scale coverage and ADA diet and insulin --History of seizure disorder Seizure precautions, continue antiepileptic medications --DVT prophylaxis; Lovenox --CODE STATUS full code --Discharge planning per case management Plan of care discussed with patient's nurse and case management Consults and recommendations noted and appreciated Critical care time 31 minutes Subjective Date of service: 11/17/16 Principal diagnosis: Acute on Chronic Hypoxemic Respiratory Failure; Sepsis Syndrome Interval history: SAme condition. Sputum positive for Klebsiella Objective - Constitutional Vitals: Vital Signs - 12hr 11/17/16 11/17/16 11/17/16 08:07 08:30 09:00 Temperature Pulse Rate 65 64 Pulse Rate [ 62 Anterior Bilateral Throughout] Pulse Rate [ From Monitor] Respiratory 13 16 Rate Respiratory 14 Rate [Anterior Bilateral Throughout] Blood Pressure 105/63 99/60 O2 Sat by Pulse 100 98 Oximetry O2 Sat by Pulse Oximetry [ Assessment] 11/17/16 11/17/16 11/17/16 09:30 09:40 10:00 Temperature Pulse Rate 65 64 63 Pulse Rate [ Anterior Bilateral Throughout] Pulse Rate [ From Monitor] Respiratory 21 16 18 Rate Respiratory Rate [Anterior Bilateral Throughout] Blood Pressure 100/61 91/60 91/60 O2 Sat by Pulse 100 97 98 Oximetry O2 Sat by Pulse Oximetry [ Assessment] 11/17/16 11/17/16 11/17/16 10:30 11:00 11:30 Temperature Pulse Rate 61 65 67 Pulse Rate [ Anterior Bilateral Throughout] Pulse Rate [ From Monitor] Respiratory 17 19 21 Rate Respiratory Rate [Anterior Bilateral Throughout] Blood Pressure 98/64 88/54 96/60 O2 Sat by Pulse 98 99 98 Oximetry O2 Sat by Pulse Oximetry [ Assessment] 11/17/16 11/17/16 11/17/16 11:46 12:00 12:30 Temperature 98.6 F Pulse Rate 66 70 Pulse Rate [ Anterior Bilateral Throughout] Pulse Rate [ 60 From Monitor] Respiratory 22 21 Rate Respiratory Rate [Anterior Bilateral Throughout] Blood Pressure 91/55 90/57 O2 Sat by Pulse 98 97 Oximetry O2 Sat by Pulse Oximetry [ Assessment] 11/17/16 11/17/16 11/17/16 12:45 13:00 13:24 Temperature Pulse Rate 64 73 Pulse Rate [ 68 Anterior Bilateral Throughout] Pulse Rate [ From Monitor] Respiratory 18 13 Rate Respiratory 14 Rate [Anterior Bilateral Throughout] Blood Pressure 90/57 89/56 O2 Sat by Pulse 99 98 Oximetry O2 Sat by Pulse Oximetry [ Assessment] 11/17/16 11/17/16 11/17/16 13:30 13:35 14:00 Temperature Pulse Rate 68 74 Pulse Rate [ 70 Anterior Bilateral Throughout] Pulse Rate [ From Monitor] Respiratory 22 15 Rate Respiratory 16 Rate [Anterior Bilateral Throughout] Blood Pressure 94/59 88/55 O2 Sat by Pulse 100 97 Oximetry O2 Sat by Pulse Oximetry [ Assessment] 11/17/16 11/17/16 11/17/16 14:30 15:00 15:30 Temperature Pulse Rate 73 72 71 Pulse Rate [ Anterior Bilateral Throughout] Pulse Rate [ From Monitor] Respiratory 22 27 H 20 Rate Respiratory Rate [Anterior Bilateral Throughout] Blood Pressure 88/55 91/58 87/54 O2 Sat by Pulse 96 97 98 Oximetry O2 Sat by Pulse Oximetry [ Assessment] 11/17/16 11/17/16 11/17/16 15:50 16:00 16:30 Temperature 99.1 F Pulse Rate 65 65 Pulse Rate [ Anterior Bilateral Throughout] Pulse Rate [ 65 From Monitor] Respiratory 19 26 H Rate Respiratory Rate [Anterior Bilateral Throughout] Blood Pressure 89/55 80/53 O2 Sat by Pulse 100 96 Oximetry O2 Sat by Pulse 97 Oximetry [ Assessment] 11/17/16 11/17/16 11/17/16 17:00 17:30 18:00 Temperature Pulse Rate 64 64 68 Pulse Rate [ Anterior Bilateral Throughout] Pulse Rate [ From Monitor] Respiratory 28 H 20 29 H Rate Respiratory Rate [Anterior Bilateral Throughout] Blood Pressure 89/55 80/52 89/57 O2 Sat by Pulse 97 100 92 Oximetry O2 Sat by Pulse Oximetry [ Assessment] 11/17/16 11/17/16 18:30 19:41 Temperature Pulse Rate 58 L 61 Pulse Rate [ Anterior Bilateral Throughout] Pulse Rate [ From Monitor] Respiratory Rate Respiratory Rate [Anterior Bilateral Throughout] Blood Pressure 92/62 96/67 O2 Sat by Pulse 95 97 Oximetry O2 Sat by Pulse Oximetry [ Assessment] General appearance: Present: no acute distress, well-nourished - EENT Eyes: PERRL, EOM intact ENT: hearing intact, clear oral mucosa Ears: bilateral: normal - Neck Neck: supple, normal ROM - Respiratory Respiratory effort: normal Respiratory: bilateral: CTA - Breasts Breasts: normal - Cardiovascular Rhythm: regular Heart Sounds: Present: S1 & S2. Absent: gallop, rub Extremities: pulses intact, No edema, normal color, Full ROM - Gastrointestinal General gastrointestinal: Present: soft, non-tender, non-distended, normal bowel sounds - Genitourinary Male genitourinary: normal - Integumentary Integumentary: clear, warm, dry - Musculoskeletal Musculoskeletal: 1, strength equal bilaterally - Neurologic Neurologic: moves all extremities - Psychiatric Psychiatric: memory intact, appropriate mood/affect, intact judgment & insight - Labs CBC & Chem 7: 11/18/16 04:10 11/18/16 04:10 Labs: Abnormal lab results 11/16/16 11/16/16 11/17/16 Range/Units 18:00 23:53 03:33 RBC 3.06 L (3.65-5.03) M/mm3 Hgb 9.4 L (11.8-15.2) gm/dl Hct 28.6 L (35.5-45.6) % RDW 16.2 H (13.2-15.2) % Lymph % (Auto) 12.3 L (13.4-35.0) % [place] % (Auto) 9.6 H (0.0-7.3) % Lymph # 1.1 L (1.2-5.4) K/mm3 Seg Neutrophils % 74.2 H (40.0-70.0) % POC ABG pH (7.35-7.45) POC ABG pCO2 (35-45) POC ABG pO2 (80-105) Potassium (3.6-5.0) mmol/L Carbon Dioxide (22-30) mmol/L Creatinine (0.8-1.5) mg/dL Glucose (75-100) mg/dL POC Glucose 143 H 149 H (70-105) 11/17/16 11/17/16 11/17/16 Range/Units 03:33 03:39 04:59 RBC (3.65-5.03) M/mm3 Hgb (11.8-15.2) gm/dl Hct (35.5-45.6) % RDW (13.2-15.2) % Lymph % (Auto) (13.4-35.0) % [place] % (Auto) (0.0-7.3) % Lymph # (1.2-5.4) K/mm3 Seg Neutrophils % (40.0-70.0) % POC ABG pH (7.35-7.45) POC ABG pCO2 50.6 H (35-45) POC ABG pO2 (80-105) Potassium 3.5 L (3.6-5.0) mmol/L Carbon Dioxide 31 H (22-30) mmol/L Creatinine 0.3 L (0.8-1.5) mg/dL Glucose 125 H (75-100) mg/dL POC Glucose 140 H (70-105) 11/17/16 11/17/16 11/17/16 Range/Units 11:26 16:08 17:38 RBC (3.65-5.03) M/mm3 Hgb (11.8-15.2) gm/dl Hct (35.5-45.6) % RDW (13.2-15.2) % Lymph % (Auto) (13.4-35.0) % [place] % (Auto) (0.0-7.3) % Lymph # (1.2-5.4) K/mm3 Seg Neutrophils % (40.0-70.0) % POC ABG pH 7.460 H (7.35-7.45) POC ABG pCO2 51.2 H (35-45) POC ABG pO2 115 H (80-105) Potassium (3.6-5.0) mmol/L Carbon Dioxide (22-30) mmol/L Creatinine (0.8-1.5) mg/dL Glucose (75-100) mg/dL POC Glucose 142 H 143 H (70-105)
[2016-11-17] MEDS: LEVAQUIN 750MG/150ML 750 MG/150 ML BAG IV SCH (21:29)
[2016-11-18] MEDS: DUONEB *Not for PRN Use IH SCH ×4 (01:56→20:42)
[2016-11-18] MEDS: NOVOLOG SUB-Q SCH ×4 (02:47→18:13)
[2016-11-18 03:59] LABS: ISTAT Base Excess 8; ISTAT HCO3 32.2; ISTAT PCO2 48.4 (35-45); ISTAT PO2 72 (80-105); ISTAT SO2 94; ISTAT TCO2 34
[2016-11-18 04:44] LABS: Basophils % (Auto) 0.7 % (0.0-1.8); Eosinophils % (Auto) 2.8 % (0.0-4.3); Hematocrit 27.1 % (35.5-45.6); Hemoglobin 8.8 gm/dl (11.8-15.2); Mean Corpuscular HGB Conc 32 % (32-34); Mean Corpuscular Hemoglobin 30 pg (28-32); Mean Corpuscular Volume 94 fl (84-94); Platelet Count 275 K/mm3 (140-440); Red Blood Count 2.89 M/mm3 (3.65-5.03); Red Cell Distribution Width 15.9 % (13.2-15.2); White Blood Count 8.1 K/mm3 (4.5-11.0)
[2016-11-18 05:00] LABS: BUN/Creatinine Ratio 26.66; Blood Urea Nitrogen 8 mg/dL (9-20); Calcium 8.1 mg/dL (8.4-10.2); Carbon Dioxide 29 mmol/L (22-30); Glucose 93 mg/dL (75-100)
[2016-11-18 05:01] LABS: Anion Gap 15 mmol/L; Chloride 100.9 mmol/L (98-107); Potassium 3.7 mmol/L (3.6-5.0); Sodium 141 mmol/L (137-145)
[2016-11-18] MEDS: ZOSYN/NS 4.5GM/100ML 4.5 GM/100 ML VIAL IV SCH ×2 (09:00→16:50)
[2016-11-18] MEDS: LOVENOX SUB-Q SCH (09:12)
[2016-11-18] MEDS: KEPPRA PO SCH ×2 (09:13→21:19)
[2016-11-18] MEDS: THERAGRAN Tab PO SCH (09:13)
[2016-11-18] MEDS: PEPCID PO SCH ×2 (09:13→21:19)
[2016-11-18] MEDS: COLACE PO SCH ×2 (09:48→21:20)
--- NOTE | 2016-11-18 10:23 | XRay Report ---
AP CHEST: HISTORY: Pneumonia, followup pneumothorax The right chest tube remains in the same position. No recurrent right pneumothorax is appreciated. There is partial atelectasis in both lower lobes. Heart size remains normal. IMPRESSION: No recurrent pneumothorax.
--- NOTE | 2016-11-18 11:42 | Progress Note ---
Assessment and Plan Assessment and Plan Assessment and plan: --Bilateral pneumonia/atelectasis s/p bronchoscopy, suctioning secretions, supportive care On Zosyn --Right pneumothorax: s/p right chest tube placement with drainage --Acute on chronic hypoxemic respiratory failure/tracheostomy; on ventilatory support Nebulizers, IV steroids and IV antibiotics, inhalation steroids Status post bronchoscopy with suctioning of secretions, pulmonary following --Sepsis secondary to bilateral pneumonia; continue current antibiotics Zosyn and Levaquin, --Type 2 diabetes mellitus; Accu-Chek sliding scale coverage and ADA diet and insulin --History of seizure disorder Seizure precautions, continue antiepileptic medications --DVT prophylaxis; Lovenox --CODE STATUS full code --Discharge planning per case management Plan of care discussed with patient's nurse and case management Consults and recommendations noted and appreciated Critical care time 31 minutes Subjective Date of service: 11/18/16 Principal diagnosis: Acute on Chronic Hypoxemic Respiratory Failure; Sepsis Syndrome Interval history: SAme condition. Sputum positive for Klebsiella Objective - Constitutional Vitals: Vital Signs - 12hr 11/17/16 11/18/16 11/18/16 23:52 00:00 00:30 Temperature 98.3 F Pulse Rate 61 62 60 Pulse Rate [ Anterior Bilateral Throughout] Pulse Rate [ 61 From Monitor] Pulse Rate [ Left Lower Lobe ] Respiratory 18 20 Rate Respiratory Rate [Anterior Bilateral Throughout] Respiratory Rate [Left Lower Lobe] Blood Pressure 104/67 106/66 101/62 O2 Sat by Pulse 99 100 99 Oximetry O2 Sat by Pulse Oximetry [ Assessment] 11/18/16 11/18/16 11/18/16 00:35 01:00 01:30 Temperature Pulse Rate 64 60 Pulse Rate [ Anterior Bilateral Throughout] Pulse Rate [ From Monitor] Pulse Rate [ Left Lower Lobe ] Respiratory 13 15 Rate Respiratory Rate [Anterior Bilateral Throughout] Respiratory Rate [Left Lower Lobe] Blood Pressure 99/66 104/68 O2 Sat by Pulse 96 100 Oximetry O2 Sat by Pulse 98 Oximetry [ Assessment] 11/18/16 11/18/16 11/18/16 01:56 02:00 02:06 Temperature Pulse Rate 61 Pulse Rate [ 62 64 Anterior Bilateral Throughout] Pulse Rate [ From Monitor] Pulse Rate [ Left Lower Lobe ] Respiratory 16 Rate Respiratory 16 17 Rate [Anterior Bilateral Throughout] Respiratory Rate [Left Lower Lobe] Blood Pressure 98/65 O2 Sat by Pulse 99 Oximetry O2 Sat by Pulse Oximetry [ Assessment] 11/18/16 11/18/16 11/18/16 02:30 03:00 03:24 Temperature Pulse Rate 62 60 62 Pulse Rate [ Anterior Bilateral Throughout] Pulse Rate [ From Monitor] Pulse Rate [ Left Lower Lobe ] Respiratory 14 14 Rate Respiratory Rate [Anterior Bilateral Throughout] Respiratory Rate [Left Lower Lobe] Blood Pressure 103/68 100/67 103/68 O2 Sat by Pulse 99 98 99 Oximetry O2 Sat by Pulse Oximetry [ Assessment] 11/18/16 11/18/16 11/18/16 03:30 04:00 04:30 Temperature 98.5 F Pulse Rate 60 58 L 60 Pulse Rate [ Anterior Bilateral Throughout] Pulse Rate [ 60 From Monitor] Pulse Rate [ Left Lower Lobe ] Respiratory 12 12 20 Rate Respiratory Rate [Anterior Bilateral Throughout] Respiratory Rate [Left Lower Lobe] Blood Pressure 105/68 107/68 110/68 O2 Sat by Pulse 100 99 100 Oximetry O2 Sat by Pulse Oximetry [ Assessment] 11/18/16 11/18/16 11/18/16 05:00 05:30 06:00 Temperature Pulse Rate 64 60 61 Pulse Rate [ Anterior Bilateral Throughout] Pulse Rate [ From Monitor] Pulse Rate [ Left Lower Lobe ] Respiratory 17 16 19 Rate Respiratory Rate [Anterior Bilateral Throughout] Respiratory Rate [Left Lower Lobe] Blood Pressure 117/70 104/70 110/71 O2 Sat by Pulse 98 99 99 Oximetry O2 Sat by Pulse Oximetry [ Assessment] 11/18/16 11/18/16 11/18/16 06:30 07:01 07:30 Temperature Pulse Rate 64 65 65 Pulse Rate [ Anterior Bilateral Throughout] Pulse Rate [ From Monitor] Pulse Rate [ Left Lower Lobe ] Respiratory 11 L 14 17 Rate Respiratory Rate [Anterior Bilateral Throughout] Respiratory Rate [Left Lower Lobe] Blood Pressure 120/70 117/63 104/69 O2 Sat by Pulse 100 100 100 Oximetry O2 Sat by Pulse Oximetry [ Assessment] 11/18/16 11/18/16 11/18/16 07:47 08:00 08:37 Temperature 98.5 F Pulse Rate 63 Pulse Rate [ Anterior Bilateral Throughout] Pulse Rate [ From Monitor] Pulse Rate [ 63 62 Left Lower Lobe ] Respiratory Rate Respiratory Rate [Anterior Bilateral Throughout] Respiratory 14 14 Rate [Left Lower Lobe] Blood Pressure 110/70 O2 Sat by Pulse 100 99 Oximetry O2 Sat by Pulse 100 Oximetry [ Assessment] General appearance: Present: no acute distress, well-nourished - EENT Eyes: PERRL, EOM intact ENT: hearing intact, clear oral mucosa Ears: bilateral: normal - Neck Neck: supple, normal ROM - Respiratory Respiratory effort: normal Respiratory: bilateral: CTA - Breasts Breasts: normal - Cardiovascular Rhythm: regular Heart Sounds: Present: S1 & S2. Absent: gallop, rub Extremities: pulses intact, No edema, normal color, Full ROM - Gastrointestinal General gastrointestinal: Present: soft, non-tender, non-distended, normal bowel sounds - Genitourinary Male genitourinary: normal - Integumentary Integumentary: clear, warm, dry - Musculoskeletal Musculoskeletal: 1, strength equal bilaterally - Neurologic Neurologic: moves all extremities - Psychiatric Psychiatric: memory intact, appropriate mood/affect, intact judgment & insight - Labs CBC & Chem 7: 11/18/16 04:10 11/18/16 04:10 Labs: Abnormal lab results 11/17/16 11/17/16 11/17/16 Range/Units 11:26 16:08 17:38 RBC (3.65-5.03) M/mm3 Hgb (11.8-15.2) gm/dl Hct (35.5-45.6) % RDW (13.2-15.2) % [place] % (Auto) (0.0-7.3) % Lymph # (1.2-5.4) K/mm3 Seg Neutrophils % (40.0-70.0) % POC ABG pH 7.460 H (7.35-7.45) POC ABG pCO2 51.2 H (35-45) POC ABG pO2 115 H (80-105) BUN (9-20) mg/dL Creatinine (0.8-1.5) mg/dL POC Glucose 142 H 143 H (70-105) Calcium (8.4-10.2) mg/dL 11/17/16 11/18/16 11/18/16 Range/Units 23:42 03:34 04:10 RBC (3.65-5.03) M/mm3 Hgb (11.8-15.2) gm/dl Hct (35.5-45.6) % RDW (13.2-15.2) % [place] % (Auto) (0.0-7.3) % Lymph # (1.2-5.4) K/mm3 Seg Neutrophils % (40.0-70.0) % POC ABG pH (7.35-7.45) POC ABG pCO2 48.4 H (35-45) POC ABG pO2 72 L (80-105) BUN 8 L (9-20) mg/dL Creatinine 0.3 L (0.8-1.5) mg/dL POC Glucose 121 H (70-105) Calcium 8.1 L (8.4-10.2) mg/dL 11/18/16 Range/Units 04:10 RBC 2.89 L (3.65-5.03) M/mm3 Hgb 8.8 L (11.8-15.2) gm/dl Hct 27.1 L (35.5-45.6) % RDW 15.9 H (13.2-15.2) % [place] % (Auto) 8.1 H (0.0-7.3) % Lymph # 1.1 L (1.2-5.4) K/mm3 Seg Neutrophils % 74.4 H (40.0-70.0) % POC ABG pH (7.35-7.45) POC ABG pCO2 (35-45) POC ABG pO2 (80-105) BUN (9-20) mg/dL Creatinine (0.8-1.5) mg/dL POC Glucose (70-105) Calcium (8.4-10.2) mg/dL
--- NOTE | 2016-11-18 14:35 | Progress Note ---
Assessment and Plan - Patient Problems (1) Acute hypoxemic respiratory failure Current Visit: Yes Status: Acute Plan to address problem: - continue aspiration precautions / VAP bundles - continue bronchodilators and pulmonary toilet - s/p bronchoscopy with suction of secretions re" Atelectasis - continue to wean oxygen for O2 Sats >/= 94% - tolerating PSV trials - s/p chest tube placement to right pleural space - continue t-piece RTC as tolerated (2) Atelectasis of both lungs Current Visit: Yes Status: Acute Plan to address problem: - s/p bronchoscopy with suction of airway secretions - reduced Peep to 5 due to pneumothorax though - CXR reviewed but atelectasis appears persisitent (3) Pneumothorax on right Current Visit: Yes Status: Acute Plan to address problem: - s/p chest tube - reduced Peep to 5 - pull chest tube once off positive pressure ventilation - will place chest tube to water seal today (4) Pneumonia Current Visit: Yes Status: Acute Qualifiers: Pneumonia type: due to unspecified organism Aspiration pneumonia type: A Laterality: bilateral Lung location: lower lobe of lung Qualified Code(s): J18.9 - Pneumonia, unspecified organism Plan to address problem: - continue to follow BAL studies - growing 2 strains of klebsiella resistant to levaquin - treat with Merem X 5 days (5) Encephalopathy acute Current Visit: No Status: Acute Plan to address problem: - improved - weaned of sedation used during bronchoscopy and chest tube placement (6) Sepsis syndrome Current Visit: No Status: Acute Plan to address problem: - improved clinically - treat with merem X 5 days re: sensitivities (7) Discharge planning issues Current Visit: Yes Status: Acute Plan to address problem: - he is critically ill on life sustaining interventions including MVS and at high risk for further deterioration including ...30' CCT without overlap Subjective Date of service: 11/18/16 Principal diagnosis: Acute on Chronic Hypoxemic Respiratory Failure; Sepsis Syndrome Interval history: Seen and examined at bedside; 24 hour events reviewed; nursing and respiratory care staff consulted; no adverse overnight events reported to me; resting peacefully in bed and has been tolerating t-piece since yesterday; complains only of mild chest pains; no N/V/F/C; minimal chest tube drainage. Objective Vital Signs - 12hr 11/18/16 11/18/16 11/18/16 03:00 03:24 03:30 Temperature Pulse Rate 60 62 60 Pulse Rate [ From Monitor] Pulse Rate [ Left Lower Lobe ] Respiratory 14 12 Rate Respiratory Rate [Left Lower Lobe] Blood Pressure 100/67 103/68 105/68 O2 Sat by Pulse 98 99 100 Oximetry O2 Sat by Pulse Oximetry [ Assessment] 11/18/16 11/18/16 11/18/16 04:00 04:30 05:00 Temperature 98.5 F Pulse Rate 58 L 60 64 Pulse Rate [ 60 From Monitor] Pulse Rate [ Left Lower Lobe ] Respiratory 12 20 17 Rate Respiratory Rate [Left Lower Lobe] Blood Pressure 107/68 110/68 117/70 O2 Sat by Pulse 99 100 98 Oximetry O2 Sat by Pulse Oximetry [ Assessment] 11/18/16 11/18/16 11/18/16 05:30 06:00 06:30 Temperature Pulse Rate 60 61 64 Pulse Rate [ From Monitor] Pulse Rate [ Left Lower Lobe ] Respiratory 16 19 11 L Rate Respiratory Rate [Left Lower Lobe] Blood Pressure 104/70 110/71 120/70 O2 Sat by Pulse 99 99 100 Oximetry O2 Sat by Pulse Oximetry [ Assessment] 11/18/16 11/18/16 11/18/16 07:01 07:30 07:47 Temperature 98.5 F Pulse Rate 65 65 Pulse Rate [ From Monitor] Pulse Rate [ Left Lower Lobe ] Respiratory 14 17 Rate Respiratory Rate [Left Lower Lobe] Blood Pressure 117/63 104/69 O2 Sat by Pulse 100 100 100 Oximetry O2 Sat by Pulse Oximetry [ Assessment] 11/18/16 11/18/16 11/18/16 08:00 08:30 08:37 Temperature Pulse Rate 60 62 Pulse Rate [ From Monitor] Pulse Rate [ 63 62 Left Lower Lobe ] Respiratory 12 14 Rate Respiratory 14 14 Rate [Left Lower Lobe] Blood Pressure 110/70 105/69 O2 Sat by Pulse 99 100 Oximetry O2 Sat by Pulse 100 Oximetry [ Assessment] 11/18/16 11/18/16 11/18/16 09:00 09:30 10:00 Temperature Pulse Rate 60 71 68 Pulse Rate [ From Monitor] Pulse Rate [ Left Lower Lobe ] Respiratory 12 19 19 Rate Respiratory Rate [Left Lower Lobe] Blood Pressure 104/70 113/60 88/58 O2 Sat by Pulse 100 100 Oximetry O2 Sat by Pulse Oximetry [ Assessment] 11/18/16 11/18/16 11/18/16 10:30 11:00 11:30 Temperature Pulse Rate 68 70 69 Pulse Rate [ From Monitor] Pulse Rate [ Left Lower Lobe ] Respiratory 19 19 18 Rate Respiratory Rate [Left Lower Lobe] Blood Pressure 95/61 104/65 104/65 O2 Sat by Pulse Oximetry O2 Sat by Pulse Oximetry [ Assessment] 11/18/16 11/18/16 11/18/16 11:52 12:00 12:30 Temperature 98.6 F Pulse Rate 63 66 Pulse Rate [ 68 From Monitor] Pulse Rate [ Left Lower Lobe ] Respiratory 22 19 Rate Respiratory Rate [Left Lower Lobe] Blood Pressure 104/69 101/68 O2 Sat by Pulse 98 98 92 Oximetry O2 Sat by Pulse Oximetry [ Assessment] 11/18/16 11/18/16 11/18/16 12:49 13:00 13:30 Temperature 98.6 F Pulse Rate 65 68 Pulse Rate [ From Monitor] Pulse Rate [ Left Lower Lobe ] Respiratory 17 16 Rate Respiratory Rate [Left Lower Lobe] Blood Pressure 102/70 93/64 O2 Sat by Pulse 97 Oximetry O2 Sat by Pulse Oximetry [ Assessment] Constitutional: no acute distress, other (somnolent; mild cognitive dysfunction) Eyes: non-icteric ENT: oropharynx moist Neck: supple, no lymphadenopathy Effort: mildly labored Ascultation: Bilateral: diminished breath sounds, rales Cardiovascular: regular rate and rhythm Gastrointestinal: normoactive bowel sounds, soft, non-tender, non-distended Integumentary: normal Extremities: no cyanosis, no edema, pink and warm, pulses normal Neurologic: normal mental status, non-focal exam (post-CVA hemiparesis; 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 (12.2-14.9) H 11/13/16 20:49 INR 1.19 (0.87-1.13) H 11/13/16 20:49 D-Dimer 2565.21 ng/mlDDU (0-234) H 11/13/16 20:49 Abnormal lab findings: Abnormal Labs 11/14/16 11/14/16 11/14/16 00:49 05:49 10:30 WBC RBC Hgb Hct MCV RDW Lymph % (Auto) [place] % (Auto) Lymph # [place] # Seg Neutrophils % Seg Neutrophils # POC ABG pH 7.455 H POC ABG pCO2 54.2 H 46.9 H POC ABG pO2 109 H Potassium Carbon Dioxide BUN Creatinine Glucose POC Glucose Calcium C-Reactive Protein 23.10 H 11/14/16 11/14/16 11/15/16 13:20 23:26 04:13 WBC 16.1 H RBC 3.08 L Hgb 9.4 L Hct 28.4 L D MCV RDW 15.8 H Lymph % (Auto) 6.1 L [place] % (Auto) 8.5 H Lymph # 1.0 L [place] # 1.4 H Seg Neutrophils % 84.7 H Seg Neutrophils # 13.6 H POC ABG pH 7.454 H POC ABG pCO2 POC ABG pO2 69 L Potassium Carbon Dioxide BUN Creatinine Glucose POC Glucose 118 H Calcium C-Reactive Protein 11/15/16 11/15/16 11/15/16 04:13 04:52 23:40 WBC RBC Hgb Hct MCV RDW Lymph % (Auto) [place] % (Auto) Lymph # [place] # Seg Neutrophils % Seg Neutrophils # POC ABG pH 7.488 H POC ABG pCO2 45.4 H POC ABG pO2 72 L Potassium 3.4 L D Carbon Dioxide 31 H BUN Creatinine 0.4 L Glucose 103 H POC Glucose 106 H Calcium C-Reactive Protein 11/16/16 11/16/16 11/16/16 04:57 04:57 10:51 WBC RBC 3.00 L Hgb 9.2 L Hct 28.4 L MCV 95 H RDW 16.0 H Lymph % (Auto) 10.6 L [place] % (Auto) 8.7 H Lymph # 1.1 L [place] # 0.9 H Seg Neutrophils % 78.2 H Seg Neutrophils # 8.2 H POC ABG pH POC ABG pCO2 48.7 H POC ABG pO2 70 L Potassium 3.4 L Carbon Dioxide BUN Creatinine 0.4 L Glucose POC Glucose Calcium C-Reactive Protein 11/16/16 11/16/16 11/17/16 18:00 23:53 03:33 WBC RBC 3.06 L Hgb 9.4 L Hct 28.6 L MCV RDW 16.2 H Lymph % (Auto) 12.3 L [place] % (Auto) 9.6 H Lymph # 1.1 L [place] # Seg Neutrophils % 74.2 H Seg Neutrophils # POC ABG pH POC ABG pCO2 POC ABG pO2 Potassium Carbon Dioxide BUN Creatinine Glucose POC Glucose 143 H 149 H Calcium C-Reactive Protein 11/17/16 11/17/16 11/17/16 03:33 03:39 04:59 WBC RBC Hgb Hct MCV RDW Lymph % (Auto) [place] % (Auto) Lymph # [place] # Seg Neutrophils % Seg Neutrophils # POC ABG pH POC ABG pCO2 50.6 H POC ABG pO2 Potassium 3.5 L Carbon Dioxide 31 H BUN Creatinine 0.3 L Glucose 125 H POC Glucose 140 H Calcium C-Reactive Protein 11/17/16 11/17/16 11/17/16 11:26 16:08 17:38 WBC RBC Hgb Hct MCV RDW Lymph % (Auto) [place] % (Auto) Lymph # [place] # Seg Neutrophils % Seg Neutrophils # POC ABG pH 7.460 H POC ABG pCO2 51.2 H POC ABG pO2 115 H Potassium Carbon Dioxide BUN Creatinine Glucose POC Glucose 142 H 143 H Calcium C-Reactive Protein 11/17/16 11/18/16 11/18/16 23:42 03:34 04:10 WBC RBC Hgb Hct MCV RDW Lymph % (Auto) [place] % (Auto) Lymph # [place] # Seg Neutrophils % Seg Neutrophils # POC ABG pH POC ABG pCO2 48.4 H POC ABG pO2 72 L Potassium Carbon Dioxide BUN 8 L Creatinine 0.3 L Glucose POC Glucose 121 H Calcium 8.1 L C-Reactive Protein 11/18/16 11/18/16 04:10 12:21 WBC RBC 2.89 L Hgb 8.8 L Hct 27.1 L MCV RDW 15.9 H Lymph % (Auto) [place] % (Auto) 8.1 H Lymph # 1.1 L [place] # Seg Neutrophils % 74.4 H Seg Neutrophils # POC ABG pH POC ABG pCO2 POC ABG pO2 Potassium Carbon Dioxide BUN Creatinine Glucose POC Glucose 111 H Calcium C-Reactive Protein Chest x-ray: image reviewed
--- NOTE | 2016-11-18 14:41 | Event Note ---
Date: 11/18/16 Sensitivity profile reviewed started on zosyn but only one strain is sensitive BAL did not grow any klebsiella A&P: - will get ID opinion on antibiotic choice and duration
[2016-11-18] MEDS ORDERED: MORPHINE IV PRN (14:44)
[2016-11-18] MEDS ORDERED: PERCOCET 5/325 PO PRN (14:44)
[2016-11-19] MEDS: NOVOLOG SUB-Q SCH ×5 (00:58→23:39)
[2016-11-19] MEDS: DUONEB *Not for PRN Use IH SCH ×4 (02:41→20:02)
[2016-11-19 04:11] LABS: ISTAT Base Excess 7; ISTAT HCO3 31.5; ISTAT PCO2 47.5 (35-45); ISTAT PO2 99 (80-105); ISTAT SO2 98; ISTAT TCO2 33
--- NOTE | 2016-11-19 07:59 | XRay Report ---
CHEST 1 VIEW INDICATION: Pneumothorax. COMPARISON: Yesterday. FINDINGS: Portable, frontal chest radiograph, 2:12 AM, 11/19/2016 reveals stable cardiomediastinal silhouette, supporting devices, appearance of the lungs and osseous structures, providing for the difference in technique. CONCLUSION: No significant interval change or evidence of a pneumothorax. Thank you for the opportunity to participate in this patient's care.
[2016-11-19] MEDS: PEPCID PO SCH ×2 (10:38→21:52)
[2016-11-19] MEDS: THERAGRAN Tab PO SCH (10:38)
[2016-11-19] MEDS: LOVENOX SUB-Q SCH (10:38)
[2016-11-19] MEDS: ZOSYN/NS 4.5GM/100ML 4.5 GM/100 ML VIAL IV SCH ×3 (10:39→16:21)
[2016-11-19] MEDS: KEPPRA PO SCH ×2 (10:39→21:51)
[2016-11-19] MEDS: COLACE PO SCH ×2 (10:42→21:17)
--- NOTE | 2016-11-19 11:09 | Progress Note ---
Assessment and Plan - Patient Problems (1) Acute hypoxemic respiratory failure Current Visit: Yes Status: Acute Plan to address problem: - continue aspiration precautions / VAP bundles - continue bronchodilators and pulmonary toilet - s/p bronchoscopy with suction of secretions re" Atelectasis - continue to wean oxygen for O2 Sats >/= 94% - tolerating PSV trials - s/p chest tube placement to right pleural space - resume t-piece and continue RTC as tolerated (2) Atelectasis of both lungs Current Visit: Yes Status: Acute Plan to address problem: - s/p bronchoscopy with suction of airway secretions - reduced Peep to 5 due to pneumothorax though - CXR reviewed but atelectasis appears persisitent (3) Pneumothorax on right Current Visit: Yes Status: Acute Plan to address problem: - s/p chest tube - reduced Peep to 5 - pull chest tube once off positive pressure ventilation - chest tube to water seal - repeat CXR (4) Pneumonia Current Visit: Yes Status: Acute Qualifiers: Pneumonia type: due to unspecified organism Aspiration pneumonia type: A Laterality: bilateral Lung location: lower lobe of lung Qualified Code(s): J18.9 - Pneumonia, unspecified organism Plan to address problem: - continue to follow BAL studies - growing 2 strains of klebsiella resistant to levaquin - treat with Merem X 5 days - clinically stable (5) Encephalopathy acute Current Visit: No Status: Acute Plan to address problem: - improved - weaned of sedation used during bronchoscopy and chest tube placement (6) Sepsis syndrome Current Visit: No Status: Acute Plan to address problem: - improved clinically - treat with merem X 5 days re: sensitivities (7) Discharge planning issues Current Visit: Yes Status: Acute Plan to address problem: - he is critically ill on life sustaining interventions including MVS and at high risk for further deterioration including - will transfer out of ICU once ok to go overnight without needing MVS ...30' CCT without overlap Subjective Date of service: 11/19/16 Principal diagnosis: Acute on Chronic Hypoxemic Respiratory Failure; Sepsis Syndrome Interval history: Seen and examined at bedside; 24 hour events reviewed; nursing and respiratory care staff consulted; no adverse overnight events reported to me; apparently rested overnight on AC due to distress; doing better now; no emesis or overt apspiration; pulled out CVL and now in restraints Objective Vital Signs - 12hr 0711/18/16 11/19/16 23:30 23:50 00:00 Temperature Pulse Rate 68 67 Pulse Rate [ Anterior Bilateral Throughout] Pulse Rate [ 66 From Monitor] Respiratory 21 12 Rate Respiratory Rate [Anterior Bilateral Throughout] Blood Pressure 108/69 108/69 98/65 O2 Sat by Pulse 90 93 95 Oximetry O2 Sat by Pulse Oximetry [ Assessment] 11/19/16 11/19/16 11/19/16 00:30 00:37 01:00 Temperature 98.1 F Pulse Rate 68 71 Pulse Rate [ Anterior Bilateral Throughout] Pulse Rate [ From Monitor] Respiratory 13 13 Rate Respiratory Rate [Anterior Bilateral Throughout] Blood Pressure 104/62 104/62 O2 Sat by Pulse 95 88 Oximetry O2 Sat by Pulse Oximetry [ Assessment] 11/19/16 11/19/16 11/19/16 01:30 02:00 02:30 Temperature Pulse Rate 64 71 Pulse Rate [ Anterior Bilateral Throughout] Pulse Rate [ From Monitor] Respiratory 16 16 Rate Respiratory Rate [Anterior Bilateral Throughout] Blood Pressure 97/65 97/65 105/64 O2 Sat by Pulse 91 75 L Oximetry O2 Sat by Pulse Oximetry [ Assessment] 11/19/16 11/19/16 11/19/16 02:41 02:52 03:00 Temperature Pulse Rate 67 Pulse Rate [ 63 65 Anterior Bilateral Throughout] Pulse Rate [ From Monitor] Respiratory 16 Rate Respiratory 14 13 Rate [Anterior Bilateral Throughout] Blood Pressure 105/64 O2 Sat by Pulse Oximetry O2 Sat by Pulse Oximetry [ Assessment] 11/19/16 11/19/16 11/19/16 03:30 03:32 04:00 Temperature Pulse Rate 65 67 65 Pulse Rate [ Anterior Bilateral Throughout] Pulse Rate [ 64 From Monitor] Respiratory 21 22 Rate Respiratory Rate [Anterior Bilateral Throughout] Blood Pressure 101/67 108/61 104/68 O2 Sat by Pulse 95 98 Oximetry O2 Sat by Pulse Oximetry [ Assessment] 11/19/16 11/19/16 11/19/16 04:30 05:00 05:30 Temperature Pulse Rate 66 67 69 Pulse Rate [ Anterior Bilateral Throughout] Pulse Rate [ From Monitor] Respiratory 20 24 14 Rate Respiratory Rate [Anterior Bilateral Throughout] Blood Pressure 99/62 100/59 100/64 O2 Sat by Pulse 93 94 89 Oximetry O2 Sat by Pulse Oximetry [ Assessment] 11/19/16 11/19/16 11/19/16 05:34 06:00 08:00 Temperature 98.2 F 98.6 F Pulse Rate 70 Pulse Rate [ Anterior Bilateral Throughout] Pulse Rate [ From Monitor] Respiratory 19 Rate Respiratory Rate [Anterior Bilateral Throughout] Blood Pressure 99/62 O2 Sat by Pulse 94 Oximetry O2 Sat by Pulse Oximetry [ Assessment] 11/19/16 11/19/16 11/19/16 09:30 09:50 09:53 Temperature Pulse Rate 67 Pulse Rate [ 67 76 Anterior Bilateral Throughout] Pulse Rate [ From Monitor] Respiratory Rate Respiratory 23 16 Rate [Anterior Bilateral Throughout] Blood Pressure 92/60 O2 Sat by Pulse 92 94 Oximetry O2 Sat by Pulse 94 Oximetry [ Assessment] Constitutional: no acute distress, other (somnolent; mild cognitive dysfunction) Eyes: non-icteric ENT: oropharynx moist Neck: supple, no lymphadenopathy Effort: mildly labored Ascultation: Bilateral: diminished breath sounds (bases), rales Cardiovascular: regular rate and rhythm Gastrointestinal: normoactive bowel sounds, soft, non-tender, non-distended Integumentary: normal Extremities: no cyanosis, no edema, pink and warm, pulses normal Neurologic: normal mental status, non-focal exam (post-CVA hemiparesis; motor deficit in right lower extremity), pupils equal and round Psychiatric: mood appropriate, affect normal CBC and BMP: 11/21/16 04:49 11/21/16 04:49 ABG, PT/INR, D-dimer: ABG POC ABG pH 7.430 (7.35-7.45) 11/19/16 04:01 POC ABG pCO2 47.5 (35-45) H 11/19/16 04:01 POC ABG pO2 99 (80-105) 11/19/16 04:01 POC ABG HCO3 31.5 11/19/16 04:01 POC ABG Total CO2 33 11/19/16 04:01 POC ABG O2 Sat 98 11/19/16 04:01 PT/INR, D-dimer PT 15.7 Sec. (12.2-14.9) H 11/13/16 20:49 INR 1.19 (0.87-1.13) H 11/13/16 20:49 D-Dimer 2565.21 ng/mlDDU (0-234) H 11/13/16 20:49 Abnormal lab findings: Abnormal Labs 11/14/16 11/14/16 11/14/16 00:49 05:49 10:30 WBC RBC Hgb Hct MCV RDW Lymph % (Auto) Mercer % (Auto) Lymph # Mercer # Seg Neutrophils % Seg Neutrophils # POC ABG pH 7.455 H POC ABG pCO2 54.2 H 46.9 H POC ABG pO2 109 H Potassium Carbon Dioxide BUN Creatinine Glucose POC Glucose Calcium C-Reactive Protein 23.10 H 11/14/16 11/14/16 11/15/16 13:20 23:26 04:13 WBC 16.1 H RBC 3.08 L Hgb 9.4 L Hct 28.4 L D MCV RDW 15.8 H Lymph % (Auto) 6.1 L Mercer % (Auto) 8.5 H Lymph # 1.0 L Mercer # 1.4 H Seg Neutrophils % 84.7 H Seg Neutrophils # 13.6 H POC ABG pH 7.454 H POC ABG pCO2 POC ABG pO2 69 L Potassium Carbon Dioxide BUN Creatinine Glucose POC Glucose 118 H Calcium C-Reactive Protein 11/15/16 11/15/16 11/15/16 04:13 04:52 23:40 WBC RBC Hgb Hct MCV RDW Lymph % (Auto) Mercer % (Auto) Lymph # [place] # Seg Neutrophils % Seg Neutrophils # POC ABG pH 7.488 H POC ABG pCO2 45.4 H POC ABG pO2 72 L Potassium 3.4 L D Carbon Dioxide 31 H BUN Creatinine 0.4 L Glucose 103 H POC Glucose 106 H Calcium C-Reactive Protein 11/16/16 11/16/16 11/16/16 04:57 04:57 10:51 WBC RBC 3.00 L Hgb 9.2 L Hct 28.4 L MCV 95 H RDW 16.0 H Lymph % (Auto) 10.6 L Mercer % (Auto) 8.7 H Lymph # 1.1 L Mercer # 0.9 H Seg Neutrophils % 78.2 H Seg Neutrophils # 8.2 H POC ABG pH POC ABG pCO2 48.7 H POC ABG pO2 70 L Potassium 3.4 L Carbon Dioxide BUN Creatinine 0.4 L Glucose POC Glucose Calcium C-Reactive Protein 11/16/16 11/16/16 11/17/16 18:00 23:53 03:33 WBC RBC 3.06 L Hgb 9.4 L Hct 28.6 L MCV RDW 16.2 H Lymph % (Auto) 12.3 L Mercer % (Auto) 9.6 H Lymph # 1.1 L Mercer # Seg Neutrophils % 74.2 H Seg Neutrophils # POC ABG pH POC ABG pCO2 POC ABG pO2 Potassium Carbon Dioxide BUN Creatinine Glucose POC Glucose 143 H 149 H Calcium C-Reactive Protein 11/17/16 11/17/16 11/17/16 03:33 03:39 04:59 WBC RBC Hgb Hct MCV RDW Lymph % (Auto) Mercer % (Auto) Lymph # Mer[place] # Seg Neutrophils % Seg Neutrophils # POC ABG pH POC ABG pCO2 50.6 H POC ABG pO2 Potassium 3.5 L Carbon Dioxide 31 H BUN Creatinine 0.3 L Glucose 125 H POC Glucose 140 H Calcium C-Reactive Protein 11/17/16 11/17/16 11/17/16 11:26 16:08 17:38 WBC RBC Hgb Hct MCV RDW Lymph % (Auto) Mercer % (Auto) Lymph # Mer[place] # Seg Neutrophils % Seg Neutrophils # POC ABG pH 7.460 H POC ABG pCO2 51.2 H POC ABG pO2 115 H Potassium Carbon Dioxide BUN Creatinine Glucose POC Glucose 142 H 143 H Calcium C-Reactive Protein 11/17/16 11/18/16 11/18/16 23:42 03:34 04:10 WBC RBC Hgb Hct MCV RDW Lymph % (Auto) Mercer % (Auto) Lymph # Mer[place] # Seg Neutrophils % Seg Neutrophils # POC ABG pH POC ABG pCO2 48.4 H POC ABG pO2 72 L Potassium Carbon Dioxide BUN 8 L Creatinine 0.3 L Glucose POC Glucose 121 H Calcium 8.1 L C-Reactive Protein 11/18/16 11/18/16 11/19/16 04:10 12:21 04:01 WBC RBC 2.89 L Hgb 8.8 L Hct 27.1 L MCV RDW 15.9 H Lymph % (Auto) Mercer % (Auto) 8.1 H Lymph # 1.1 L Mercer # Seg Neutrophils % 74.4 H Seg Neutrophils # POC ABG pH POC ABG pCO2 47.5 H POC ABG pO2 Potassium Carbon Dioxide BUN Creatinine Glucose POC Glucose 111 H Calcium C-Reactive Protein
[2016-11-19] MEDS: TRANSDERM-SCOP TD SCH (14:22)
[2016-11-19] MEDS: ROBINUL PO SCH ×2 (14:26→21:52)
--- NOTE | 2016-11-19 15:42 | Progress Note ---
Assessment and Plan Assessment and Plan Assessment and plan: - Pneumonia Current Visit: Yes Status: Acute Qualifiers: Pneumonia type: due to unspecified organism Aspiration pneumonia type: A Laterality: bilateral Lung location: lower lobe of lung Qualified Code(s): J18.9 - Pneumonia, unspecified organism Plan to address problem: Changing Zosyn to Meropenem (or Ertapenem) to complete 7-10 days. PICC is being placed. --Right pneumothorax: s/p right chest tube placement with drainage --Acute on chronic hypoxemic respiratory failure/tracheostomy; on ventilatory support Nebulizers, IV steroids and IV antibiotics, inhalation steroids Status post bronchoscopy with suctioning of secretions, pulmonary following --Bilateral pneumonia/atelectasis s/p bronchoscopy, suctioning secretions, supportive care --Sepsis secondary to bilateral pneumonia; continue current antibiotics Zosyn and Levaquin, --Type 2 diabetes mellitus; Accu-Chek sliding scale coverage and ADA diet and insulin --History of seizure disorder Seizure precautions, continue antiepileptic medications --DVT prophylaxis; Lovenox Patient has Peg and Trach ID consult appreciated --CODE STATUS full code --Discharge planning per case management Plan of care discussed with patient's nurse and case management Consults and recommendations noted and appreciated Critical care time 31 minutes Subjective Date of service: 11/19/16 Principal diagnosis: Acute on Chronic Hypoxemic Respiratory Failure; Sepsis Syndrome Interval history: SAme condition. Sputum positive for Klebsiella Objective - Constitutional Vitals: Vital Signs - 12hr 11/19/16 11/19/16 11/19/16 04:00 04:30 05:00 Temperature Pulse Rate 65 66 67 Pulse Rate [ Anterior Bilateral Throughout] Pulse Rate [ 64 From Monitor] Respiratory 22 20 24 Rate Respiratory Rate [Anterior Bilateral Throughout] Blood Pressure 104/68 99/62 100/59 O2 Sat by Pulse 98 93 94 Oximetry O2 Sat by Pulse Oximetry [ Assessment] 11/19/16 11/19/16 11/19/16 05:30 05:34 06:00 Temperature 98.2 F Pulse Rate 69 70 Pulse Rate [ Anterior Bilateral Throughout] Pulse Rate [ From Monitor] Respiratory 14 19 Rate Respiratory Rate [Anterior Bilateral Throughout] Blood Pressure 100/64 99/62 O2 Sat by Pulse 89 94 Oximetry O2 Sat by Pulse Oximetry [ Assessment] 11/19/16 11/19/16 11/19/16 06:30 07:00 07:30 Temperature Pulse Rate 64 67 62 Pulse Rate [ Anterior Bilateral Throughout] Pulse Rate [ From Monitor] Respiratory 12 19 16 Rate Respiratory Rate [Anterior Bilateral Throughout] Blood Pressure 105/68 100/68 100/68 O2 Sat by Pulse 92 94 96 Oximetry O2 Sat by Pulse Oximetry [ Assessment] 11/19/16 11/19/16 11/19/16 08:00 08:30 09:00 Temperature 98.6 F Pulse Rate 64 68 63 Pulse Rate [ Anterior Bilateral Throughout] Pulse Rate [ From Monitor] Respiratory 15 13 16 Rate Respiratory Rate [Anterior Bilateral Throughout] Blood Pressure 99/65 91/68 92/60 O2 Sat by Pulse 93 93 94 Oximetry O2 Sat by Pulse Oximetry [ Assessment] 11/19/16 11/19/16 11/19/16 09:30 09:50 09:53 Temperature Pulse Rate 71 Pulse Rate [ 67 76 Anterior Bilateral Throughout] Pulse Rate [ From Monitor] Respiratory 14 Rate Respiratory 23 16 Rate [Anterior Bilateral Throughout] Blood Pressure 96/62 O2 Sat by Pulse 97 94 Oximetry O2 Sat by Pulse 94 Oximetry [ Assessment] 11/19/16 11/19/16 11/19/16 10:00 10:30 11:00 Temperature Pulse Rate 70 68 69 Pulse Rate [ Anterior Bilateral Throughout] Pulse Rate [ From Monitor] Respiratory 19 20 17 Rate Respiratory Rate [Anterior Bilateral Throughout] Blood Pressure 99/62 100/63 100/63 O2 Sat by Pulse 94 97 95 Oximetry O2 Sat by Pulse Oximetry [ Assessment] 11/19/16 11/19/16 11/19/16 11:30 12:00 12:30 Temperature 98.6 F Pulse Rate 73 68 72 Pulse Rate [ Anterior Bilateral Throughout] Pulse Rate [ From Monitor] Respiratory 11 L 17 21 Rate Respiratory Rate [Anterior Bilateral Throughout] Blood Pressure 94/64 100/63 100/63 O2 Sat by Pulse 96 93 Oximetry O2 Sat by Pulse Oximetry [ Assessment] 11/19/16 11/19/16 11/19/16 13:00 13:30 14:00 Temperature Pulse Rate 72 71 69 Pulse Rate [ Anterior Bilateral Throughout] Pulse Rate [ From Monitor] Respiratory 19 21 18 Rate Respiratory Rate [Anterior Bilateral Throughout] Blood Pressure 94/62 91/64 91/64 O2 Sat by Pulse 87 85 89 Oximetry O2 Sat by Pulse Oximetry [ Assessment] 11/19/16 11/19/16 14:30 15:00 Temperature Pulse Rate 70 75 Pulse Rate [ Anterior Bilateral Throughout] Pulse Rate [ From Monitor] Respiratory 21 11 L Rate Respiratory Rate [Anterior Bilateral Throughout] Blood Pressure 97/64 102/64 O2 Sat by Pulse 91 93 Oximetry O2 Sat by Pulse Oximetry [ Assessment] General appearance: Present: no acute distress, well-nourished - EENT Eyes: PERRL, EOM intact ENT: hearing intact, clear oral mucosa Ears: bilateral: normal - Neck Neck: supple, normal ROM - Respiratory Respiratory effort: normal Respiratory: bilateral: CTA - Breasts Breasts: normal - Cardiovascular Rhythm: regular Heart Sounds: Present: S1 & S2. Absent: gallop, rub Extremities: pulses intact, No edema, normal color, Full ROM - Gastrointestinal General gastrointestinal: Present: soft, non-tender, non-distended, normal bowel sounds - Genitourinary Male genitourinary: normal - Integumentary Integumentary: clear, warm, dry - Musculoskeletal Musculoskeletal: 1, strength equal bilaterally - Neurologic Neurologic: moves all extremities - Psychiatric Psychiatric: memory intact, appropriate mood/affect, intact judgment & insight - Labs CBC & Chem 7: 11/18/16 04:10 11/18/16 04:10 Labs: Abnormal lab results 11/19/16 Range/Units 04:01 POC ABG pCO2 47.5 H (35-45)
--- NOTE | 2016-11-19 15:57 | Consultation ---
History of Present Illness - Reason for Consult Consult date: 11/19/16 Antibiotic Management Requesting physician: ELIZABETH COLEY - History of Present Illness Mr. Smith is a 60-year-old man with chronic respiratory failure s/p tracheostomy and a right PTX s/p chest tube who was sent to the hospital for evaluation of shortness of breath. A CT chest showed no pulmonary embolism, but showed extensive bilateral pulmonary infiltrates. He is started empirically on Zosyn. Sputum cultures shows a predominance of 2 strains of Klebsiella oxytoca, one of which having ESBL activity. ID consultation is requested for further antibiotic management. Past History Past Medical History: other (respiratory failure; right pneumothroax s/p chest tube; brain mass) Past Surgical History: Other (right chest tube placement; tracheostomy) Medications and Allergies Allergies Allergy/AdvReac Type Severity Reaction Status Date / Time No Known Allergies Allergy Verified 11/10/16 01:08 Home Medications Medication Instructions Recorded Confirmed Last Taken Type Omeprazole Magnesium [PriLOSEC Otc] 20 mg PO QDAY 11/22/15 11/14/16 11/09/16 08: 00 History levETIRAcetam [Keppra TAB] 750 mg PO BID tablet 09/14/16 11/14/16 11/09/16 21: 00 Rx ALBUTEROL Inhaler [Proair] 2 puff IH QID PRN 11/10/16 11/14/16 11/09/16 21:00 History Docusate Sodium [Colace] 100 mg PO BID 11/10/16 11/14/16 11/09/16 21:00 History Enoxaparin [Lovenox] 40 mg SQ QDAY 11/10/16 11/14/16 11/09/16 21:00 History Multivitamin Tab [Multiple Vitamin 1 each PO QDAY 11/10/16 11/14/16 11/09/16 21: 00 History TAB (Theragran)] Nicotine [Habitrol] 14 mg TD DAILY 11/10/16 11/14/16 11/09/16 21:00 History Pantoprazole [Protonix] 40 mg PO QDAY 11/10/16 11/14/16 11/09/16 21:00 History Ramelteon [Rozerem] 8 mg PO DAILY 11/10/16 11/14/16 11/09/16 21:00 History Active Meds: Active Medications Acetaminophen (Tylenol) 650 mg PO Q4H PRN PRN Reason: Pain MILD(1-3)/Fever >100.5/MENDIETA Last Admin: 11/15/16 22:10 Dose: 650 mg Acetaminophen (Tylenol) 650 mg NM Q4H PRN PRN Reason: Pain MILD(1-3)/Fever >100.5/MENDIETA Albuterol (Proventil) 2.5 mg IH QIDRT PRN PRN Reason: Shortness Of Breath Albuterol/Ipratropium (Duoneb *Not For Prn Use*) 1 ampul IH Q6HRT [facility] Last Admin: 11/19/16 09:34 Dose: 1 ampul Lipase/Protease/Amylase (Pancreaze Dr 10,500 Unit) 1 each FEEDTUBE PRN PRN PRN Reason: For Clogged Feeding Tube Docusate Sodium (Colace) 100 mg PO BID [facility] Last Admin: 11/19/16 10:42 Dose: 100 mg Enoxaparin Sodium (Lovenox) 40 mg SUB-Q QDAY@1000 [facility] Last Admin: 11/19/16 10:38 Dose: 40 mg Famotidine (Pepcid) 20 mg PO BID [facility] Last Admin: 11/19/16 10:38 Dose: 20 mg Glycopyrrolate (Robinul) 2 mg PO TID [facility] Stop: 11/22/16 13:59 Last Admin: 11/19/16 14:26 Dose: 2 mg Piperacillin Sod/Tazobactam Sod (Zosyn/Ns 4.5gm/100ml) 4.5 gm in 100 mls @ 200 mls/hr IV Q8H [facility] PRN Reason: Protocol Last Admin: 11/19/16 10:39 Dose: 200 mls/hr Insulin Aspart (Novolog) 0 units SUB-Q Q6HR [facility] PRN Reason: Protocol Last Admin: 11/19/16 14:26 Dose: Not Given Levetiracetam (Keppra) 750 mg PO BID [facility] Last Admin: 11/19/16 10:39 Dose: 750 mg Morphine Sulfate (Morphine) 2 mg IV Q6H PRN PRN Reason: Pain , Severe (7-10) Multivitamins (Theragran Tab) 1 each PO QDAY [facility] Last Admin: 11/19/16 10:38 Dose: 1 each Ondansetron HCl (Zofran) 4 mg IV Q8H PRN PRN Reason: N/V unrelieved by Reglan Oxycodone/Acetaminophen (Percocet 5/325) 1 tab PO Q6H PRN PRN Reason: Pain, Moderate (4-6) Last Admin: 11/18/16 16:40 Dose: 1 tab Quetiapine Fumarate (Seroquel) 25 mg PO DAILY [facility] Last Admin: 11/19/16 14:23 Dose: 25 mg Quetiapine Fumarate (Seroquel) 50 mg PO QHS [facility] Scopolamine (Transderm-Scop) 1 each TD Q3D [facility] Last Admin: 11/19/16 14:22 Dose: 1 each Simple Syrup (Simple Syrup) 15 ml FEEDTUBE PRN PRN PRN Reason: Hypoglycemia Simple Syrup (Simple Syrup) 30 ml FEEDTUBE PRN PRN PRN Reason: Hypoglycemia Sodium Bicarbonate (Sodium Bicarbonate) 325 mg FEEDTUBE PRN PRN PRN Reason: For Clogged Feeding Tube Review of Systems ROS unobtainable: due to mental status Physical Examination - Constitutional Vitals: Vital Signs Temp Pulse Resp BP Pulse Ox 98.6 F 75 11 L 102/64 93 11/19/16 12:00 11/19/16 15:00 11/19/16 15:00 11/19/16 15:00 11/19/16 15:44 Temperature -Last 24 Hours Temperature 98.6 F Temperature 98.6 F Temperature 98.2 F Temperature 98.1 F Temperature 98.7 F Temperature 98.6 F General appearance: Present: mild distress (restless agitation) - EENT Eyes: Absent: conjunctival injection - Neck Neck: Present: supple - Respiratory Respiratory effort: other (tracheostomy in place; right chest tube in place) Respiratory: bilateral: rhonchi - Cardiovascular Rhythm: regular Heart Sounds: Present: S1 & S2 - Abdominal General gastrointestinal: Present: soft, non-tender, non-distended Male genitourinary: Present: normal (Smith with yellow urine) - Integumentary Integumentary: Absent: jaundice, rash - Psychiatric Psychiatric: agitated - Neurologic Neurologic: moves all extremities Results - Labs CBC & Chem 7: 11/18/16 04:10 11/18/16 04:10 Labs: Abnormal lab results 11/19/16 Range/Units 04:01 POC ABG pCO2 47.5 H (35-45) - Imaging and Cardiology Chest x-ray: report reviewed CT scan - chest: report reviewed Venous US: report reviewed (no DVT) Assessment and Plan - Patient Problems (1) Pneumonia Current Visit: Yes Status: Acute Qualifiers: Pneumonia type: due to unspecified organism Aspiration pneumonia type: A Laterality: bilateral Lung location: lower lobe of lung Qualified Code(s): J18.9 - Pneumonia, unspecified organism Plan to address problem: Changing Zosyn to Meropenem (or Ertapenem) to complete 7-10 days. PICC is being placed.
--- NOTE | 2016-11-19 17:39 | XRay Report ---
FINAL REPORT EXAM: XR CHEST 1V AP HISTORY: picc placement TECHNIQUE: AP portable view of the chest PRIORS: CXR 11/13/2016, CT chest 11/13/2016 FINDINGS: Lines, tubes, and devices: There is a new left subclavian PICC line in place. In the area of the proximal superior vena cava the distal portion of the line loops on itself with the terminus directed cranially. This should be repositioned. The tracheostomy tube is unchanged. Tubing overlying the right chest is again noted. Lungs and pleura: Trachea is normal in position. There is a moderate left pleural effusion again noted. Bilateral infiltrates in the lower lung zones are again seen. No change. Cardiomediastinal silhouette: Cardiac and mediastinal silhouettes are unremarkable. Other: Bony structures are intact. IMPRESSION: 1. Left subclavian PICC line should be repositioned due to a loop involving the distal segment located in the proximal superior vena cava. 2. No other change with a left pleural effusion bilateral infiltrates in the lower lung zones again noted.
[2016-11-19] MEDS: MERREM 1,000 MG in NACL 0.9% 100 ML IV SCH (18:55)
[2016-11-20] MEDS: DUONEB *Not for PRN Use IH SCH ×4 (01:44→22:57)
[2016-11-20] MEDS: MERREM 1,000 MG in NACL 0.9% 100 ML IV SCH ×3 (04:06→20:29)
[2016-11-20] MEDS: NOVOLOG SUB-Q SCH ×3 (05:07→18:00)
[2016-11-20] MEDS: ROBINUL PO SCH ×3 (08:18→23:27)
[2016-11-20 09:12] LABS: Basophils % (Auto) 0.5 % (0.0-1.8); Eosinophils % (Auto) 4.3 % (0.0-4.3); Hematocrit 31.2 % (35.5-45.6); Hemoglobin 10.3 gm/dl (11.8-15.2); Mean Corpuscular HGB Conc 33 % (32-34); Mean Corpuscular Hemoglobin 31 pg (28-32); Mean Corpuscular Volume 93 fl (84-94); Platelet Count 407 K/mm3 (140-440); Red Blood Count 3.37 M/mm3 (3.65-5.03); Red Cell Distribution Width 15.9 % (13.2-15.2); White Blood Count 10.5 K/mm3 (4.5-11.0)
[2016-11-20 09:28] LABS: Anion Gap 12 mmol/L; Blood Urea Nitrogen 12 mg/dL (9-20); Calcium 8.1 mg/dL (8.4-10.2); Carbon Dioxide 31 mmol/L (22-30); Chloride 104.6 mmol/L (98-107); Glucose 92 mg/dL (75-100); Potassium 3.7 mmol/L (3.6-5.0); Sodium 144 mmol/L (137-145)
[2016-11-20 09:53] LABS: ISTAT Base Excess 10; ISTAT PCO2 51.9 (35-45); ISTAT PH 7.425 (7.35-7.45); ISTAT PO2 77 (80-105); ISTAT SO2 95; ISTAT TCO2 36
[2016-11-20] MEDS: COLACE PO SCH ×2 (11:00→23:10)
[2016-11-20] MEDS: KEPPRA PO SCH ×2 (11:18→23:09)
[2016-11-20] MEDS: LOVENOX SUB-Q SCH (11:18)
[2016-11-20] MEDS: PEPCID PO SCH ×2 (11:19→23:09)
[2016-11-20] MEDS: THERAGRAN Tab PO SCH (11:19)
--- NOTE | 2016-11-20 11:43 | Progress Note ---
Assessment and Plan - Patient Problems (1) Acute hypoxemic respiratory failure Current Visit: Yes Status: Acute Plan to address problem: - continue aspiration precautions / VAP bundles - continue bronchodilators and pulmonary toilet - s/p bronchoscopy with suction of secretions re" Atelectasis - continue to wean oxygen for O2 Sats >/= 94% - tolerating PSV trials - s/p chest tube placement to right pleural space - continue RTC as tolerated (2) Atelectasis of both lungs Current Visit: Yes Status: Acute Plan to address problem: - s/p bronchoscopy with suction of airway secretions - reduced Peep to 5 due to pneumothorax though - CXR reviewed but atelectasis appears persisitent (3) Pneumothorax on right Current Visit: Yes Status: Acute Plan to address problem: - s/p chest tube - reduced Peep to 5 - pull chest tube once off positive pressure ventilation - chest tube to water seal - repeat CXR pending - clinically stable (4) Pneumonia Current Visit: Yes Status: Acute Qualifiers: Pneumonia type: due to unspecified organism Aspiration pneumonia type: A Laterality: bilateral Lung location: lower lobe of lung Qualified Code(s): J18.9 - Pneumonia, unspecified organism Plan to address problem: - continue to follow BAL studies - growing 2 strains of klebsiella resistant to levaquin - treating with Merem X 5 days - clinically stable (5) Encephalopathy acute Current Visit: No Status: Acute Plan to address problem: - improved - weaned of sedation used during bronchoscopy and chest tube placement (6) Sepsis syndrome Current Visit: No Status: Acute Plan to address problem: - improved clinically - treating with merem X 5 days re: sensitivities (7) Discharge planning issues Current Visit: Yes Status: Acute Plan to address problem: - ok to transfer to telemetry Subjective Date of service: 11/20/16 Principal diagnosis: Acute on Chronic Hypoxemic Respiratory Failure; Sepsis Syndrome Interval history: Seen and examined at bedside; 24 hour events reviewed; nursing and respiratory care staff consulted; no adverse overnight events reported to me; doing well; s/ p PICC line placement; he tolerated T-piece overnight and is doing well; denies acute chest pains or increased SOB Objective Vital Signs - 12hr 11/20/16 11/20/16 11/20/16 00:00 00:30 01:00 Temperature 97.5 F L Pulse Rate 93 H 94 H 87 Pulse Rate [ Bilateral Throughout] Pulse Rate [ From Monitor] Respiratory 20 17 15 Rate Respiratory Rate [Bilateral Throughout] Blood Pressure 95/56 101/65 93/61 O2 Sat by Pulse 95 95 95 Oximetry 11/20/16 11/20/16 11/20/16 01:30 01:44 02:00 Temperature Pulse Rate 87 82 Pulse Rate [ 85 87 Bilateral Throughout] Pulse Rate [ From Monitor] Respiratory 11 L 16 Rate Respiratory 19 19 Rate [Bilateral Throughout] Blood Pressure 91/61 95/63 O2 Sat by Pulse 96 95 Oximetry 11/20/16 11/20/16 11/20/16 02:30 03:00 03:30 Temperature Pulse Rate 84 94 H 94 H Pulse Rate [ Bilateral Throughout] Pulse Rate [ From Monitor] Respiratory 17 20 14 Rate Respiratory Rate [Bilateral Throughout] Blood Pressure 91/62 99/67 103/76 O2 Sat by Pulse 96 95 96 Oximetry 11/20/16 11/20/16 11/20/16 04:00 04:30 05:00 Temperature 98.0 F Pulse Rate 87 78 79 Pulse Rate [ Bilateral Throughout] Pulse Rate [ From Monitor] Respiratory 21 22 17 Rate Respiratory Rate [Bilateral Throughout] Blood Pressure 103/76 92/63 87/58 O2 Sat by Pulse 88 94 95 Oximetry 11/20/16 11/20/16 11/20/16 05:06 05:30 06:00 Temperature Pulse Rate 74 75 Pulse Rate [ Bilateral Throughout] Pulse Rate [ From Monitor] Respiratory 16 16 Rate Respiratory Rate [Bilateral Throughout] Blood Pressure 99/65 O2 Sat by Pulse 97 97 98 Oximetry 11/20/16 11/20/16 11/20/16 06:30 07:00 07:30 Temperature Pulse Rate 73 71 73 Pulse Rate [ Bilateral Throughout] Pulse Rate [ From Monitor] Respiratory 19 20 19 Rate Respiratory Rate [Bilateral Throughout] Blood Pressure 92/60 91/60 91/60 O2 Sat by Pulse 95 97 96 Oximetry 11/20/16 11/20/16 11/20/16 08:00 08:20 08:30 Temperature 98.7 F Pulse Rate 75 72 Pulse Rate [ Bilateral Throughout] Pulse Rate [ 75 From Monitor] Respiratory 19 19 19 Rate Respiratory Rate [Bilateral Throughout] Blood Pressure 93/61 97/63 O2 Sat by Pulse 96 97 97 Oximetry 11/20/16 11/20/16 11/20/16 08:56 09:01 09:10 Temperature Pulse Rate Pulse Rate [ 72 79 Bilateral Throughout] Pulse Rate [ From Monitor] Respiratory Rate Respiratory 22 18 Rate [Bilateral Throughout] Blood Pressure O2 Sat by Pulse 97 Oximetry Constitutional: no acute distress, other (somnolent; mild cognitive dysfunction) Eyes: non-icteric ENT: oropharynx moist Neck: supple, no lymphadenopathy Effort: mildly labored Ascultation: Bilateral: diminished breath sounds, rales Cardiovascular: regular rate and rhythm Gastrointestinal: normoactive bowel sounds, soft, non-tender, non-distended Integumentary: normal Extremities: no cyanosis, no edema, pink and warm, pulses normal Neurologic: normal mental status, non-focal exam (post-CVA hemiparesis; motor 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 (12.2-14.9) H 11/13/16 20:49 INR 1.19 (0.87-1.13) H 11/13/16 20:49 D-Dimer 2565.21 ng/mlDDU (0-234) H 11/13/16 20:49 Abnormal lab findings: Abnormal Labs 11/14/16 11/14/16 11/14/16 00:49 05:49 10:30 WBC RBC Hgb Hct MCV RDW Lymph % (Auto) Ross % (Auto) Lymph # Ross # Seg Neutrophils % Seg Neutrophils # POC ABG pH 7.455 H POC ABG pCO2 54.2 H 46.9 H POC ABG pO2 109 H Potassium Carbon Dioxide BUN Creatinine Glucose POC Glucose Calcium C-Reactive Protein 23.10 H 11/14/16 11/14/16 11/15/16 13:20 23:26 04:13 WBC 16.1 H RBC 3.08 L Hgb 9.4 L Hct 28.4 L D MCV RDW 15.8 H Lymph % (Auto) 6.1 L Ross % (Auto) 8.5 H Lymph # 1.0 L Ross # 1.4 H Seg Neutrophils % 84.7 H Seg Neutrophils # 13.6 H POC ABG pH 7.454 H POC ABG pCO2 POC ABG pO2 69 L Potassium Carbon Dioxide BUN Creatinine Glucose POC Glucose 118 H Calcium C-Reactive Protein 11/15/16 11/15/16 11/15/16 04:13 04:52 23:40 WBC RBC Hgb Hct MCV RDW Lymph % (Auto) Ross % (Auto) Lymph # Ross # Seg Neutrophils % Seg Neutrophils # POC ABG pH 7.488 H POC ABG pCO2 45.4 H POC ABG pO2 72 L Potassium 3.4 L D Carbon Dioxide 31 H BUN Creatinine 0.4 L Glucose 103 H POC Glucose 106 H Calcium C-Reactive Protein 11/16/16 11/16/16 11/16/16 04:57 04:57 10:51 WBC RBC 3.00 L Hgb 9.2 L Hct 28.4 L MCV 95 H RDW 16.0 H Lymph % (Auto) 10.6 L Ross % (Auto) 8.7 H Lymph # 1.1 L Ross # 0.9 H Seg Neutrophils % 78.2 H Seg Neutrophils # 8.2 H POC ABG pH POC ABG pCO2 48.7 H POC ABG pO2 70 L Potassium 3.4 L Carbon Dioxide BUN Creatinine 0.4 L Glucose POC Glucose Calcium C-Reactive Protein 11/16/16 11/16/16 11/17/16 18:00 23:53 03:33 WBC RBC 3.06 L Hgb 9.4 L Hct 28.6 L MCV RDW 16.2 H Lymph % (Auto) 12.3 L Ross % (Auto) 9.6 H Lymph # 1.1 L Ross # Seg Neutrophils % 74.2 H Seg Neutrophils # POC ABG pH POC ABG pCO2 POC ABG pO2 Potassium Carbon Dioxide BUN Creatinine Glucose POC Glucose 143 H 149 H Calcium C-Reactive Protein 11/17/16 11/17/16 11/17/16 03:33 03:39 04:59 WBC RBC Hgb Hct MCV RDW Lymph % (Auto) Ross % (Auto) Lymph # Ross # Seg Neutrophils % Seg Neutrophils # POC ABG pH POC ABG pCO2 50.6 H POC ABG pO2 Potassium 3.5 L Carbon Dioxide 31 H BUN Creatinine 0.3 L Glucose 125 H POC Glucose 140 H Calcium C-Reactive Protein 11/17/16 11/17/16 11/17/16 11:26 16:08 17:38 WBC RBC Hgb Hct MCV RDW Lymph % (Auto) Ross % (Auto) Lymph # Ross # Seg Neutrophils % Seg Neutrophils # POC ABG pH 7.460 H POC ABG pCO2 51.2 H POC ABG pO2 115 H Potassium Carbon Dioxide BUN Creatinine Glucose POC Glucose 142 H 143 H Calcium C-Reactive Protein 11/17/16 11/18/16 11/18/16 23:42 03:34 04:10 WBC RBC Hgb Hct MCV RDW Lymph % (Auto) Ross % (Auto) Lymph # Ross # Seg Neutrophils % Seg Neutrophils # POC ABG pH POC ABG pCO2 48.4 H POC ABG pO2 72 L Potassium Carbon Dioxide BUN 8 L Creatinine 0.3 L Glucose POC Glucose 121 H Calcium 8.1 L C-Reactive Protein 11/18/16 11/18/16 11/19/16 04:10 12:21 04:01 WBC RBC 2.89 L Hgb 8.8 L Hct 27.1 L MCV RDW 15.9 H Lymph % (Auto) Ross % (Auto) 8.1 H Lymph # 1.1 L Ross # Seg Neutrophils % 74.4 H Seg Neutrophils # POC ABG pH POC ABG pCO2 47.5 H POC ABG pO2 Potassium Carbon Dioxide BUN Creatinine Glucose POC Glucose 111 H Calcium C-Reactive Protein 11/19/16 11/19/16 11/20/16 12:00 23:39 05:07 WBC RBC Hgb Hct MCV RDW Lymph % (Auto) Ross % (Auto) Lymph # Ross # Seg Neutrophils % Seg Neutrophils # POC ABG pH POC ABG pCO2 POC ABG pO2 Potassium Carbon Dioxide BUN Creatinine Glucose POC Glucose 118 H 127 H 134 H Calcium C-Reactive Protein 11/20/16 11/20/16 11/20/16 08:41 08:41 08:56 WBC RBC 3.37 L Hgb 10.3 L Hct 31.2 L MCV RDW 15.9 H Lymph % (Auto) Ross % (Auto) 7.4 H Lymph # Ross # Seg Neutrophils % Seg Neutrophils # POC ABG pH POC ABG pCO2 51.9 H POC ABG pO2 77 L Potassium Carbon Dioxide 31 H BUN Creatinine 0.3 L Glucose POC Glucose Calcium 8.1 L C-Reactive Protein
--- NOTE | 2016-11-20 14:09 | Progress Note ---
Assessment and Plan Assessment and plan: --Bilateral pneumonia/atelectasis s/p bronchoscopy, suctioning secretions, supportive care Continue current antibiotics --Right pneumothorax: s/p right chest tube placement with drainage --Acute on chronic hypoxemic respiratory failure/tracheostomy; Nebulizers, IV steroids and IV antibiotics, inhalation steroids Status post bronchoscopy with suctioning of secretions, pulmonary following --Sepsis secondary to bilateral pneumonia; continue current antibiotics Zosyn and Levaquin, --Type 2 diabetes mellitus; Accu-Chek sliding scale coverage and ADA diet and insulin --History of seizure disorder Seizure precautions, continue antiepileptic medications --DVT prophylaxis; Lovenox -- Peg and Trach. Care --CODE STATUS full code --Discharge planning per case management Plan of care discussed with the patient's Consults and recommendations noted and appreciated Critical care time 31 minutes Pulmonary critical cleared for transfer out of ICU to telemetry /[facility] with remote telemetry History Interval history: Plan seen and evaluated medical records reviewed No new events reported by the nursing staff Clinically no change, vital signs stable reviewed Hospitalist Physical - Constitutional Vitals: Temp Pulse Resp BP Pulse Ox 98.6 F 84 23 101/60 88 11/20/16 12:00 11/20/16 14:07 11/20/16 14:07 11/20/16 13:30 11/20/16 13:30 General appearance: Present: no acute distress, well-nourished - EENT Eyes: Present: PERRL, EOM intact ENT: other (tracheostomy ) - Neck Neck: Present: supple, normal ROM - Respiratory Respiratory effort: normal Respiratory: bilateral: diminished, rhonchi, negative: rales, wheezing - Cardiovascular Rhythm: regular Heart Sounds: Present: S1 & S2 - Extremities Extremities: no ischemia, pulses intact, pulses symmetrical - Abdominal General gastrointestinal: soft, non-tender, non-distended, normal bowel sounds - Integumentary Integumentary: Present: clear, warm - Psychiatric Psychiatric: appropriate mood/affect, cooperative - Neurologic Neurologic: CNII-XII intact, moves all extremities Results - Labs CBC & Chem 7: 11/20/16 08:41 11/20/16 08:41 Labs: Laboratory Last Values WBC 10.5 K/mm3 (4.5-11.0) 11/20/16 08:41 RBC 3.37 M/mm3 (3.65-5.03) L 11/20/16 08:41 Hgb 10.3 gm/dl (11.8-15.2) L 11/20/16 08:41 Hct 31.2 % (35.5-45.6) L 11/20/16 08:41 MCV 93 fl (84-94) 11/20/16 08:41 MCH 31 pg (28-32) 11/20/16 08:41 MCHC 33 % (32-34) 11/20/16 08:41 RDW 15.9 % (13.2-15.2) H 11/20/16 08:41 Plt Count 407 K/mm3 (140-440) 11/20/16 08:41 Lymph % (Auto) 19.2 % (13.4-35.0) 11/20/16 08:41 [place] % (Auto) 7.4 % (0.0-7.3) H 11/20/16 08:41 Eos % (Auto) 4.3 % (0.0-4.3) 11/20/16 08:41 Baso % (Auto) 0.5 % (0.0-1.8) 11/20/16 08:41 Lymph # 2.0 K/mm3 (1.2-5.4) 11/20/16 08:41 [place] # 0.8 K/mm3 (0.0-0.8) 11/20/16 08:41 Eos # 0.4 K/mm3 (0.0-0.4) 11/20/16 08:41 Baso # 0.1 K/mm3 (0.0-0.1) 11/20/16 08:41 Seg Neutrophils % 68.6 % (40.0-70.0) 11/20/16 08:41 Seg Neutrophils # 7.2 K/mm3 (1.8-7.7) 11/20/16 08:41 PT 15.7 Sec. (12.2-14.9) H 11/13/16 20:49 INR 1.19 (0.87-1.13) H 11/13/16 20:49 D-Dimer 2565.21 ng/mlDDU (0-234) H 11/13/16 20:49 POC ABG pH 7.425 (7.35-7.45) 11/20/16 08:56 POC ABG pCO2 51.9 (35-45) H 11/20/16 08:56 POC ABG pO2 77 (80-105) L 11/20/16 08:56 POC ABG HCO3 34.0 11/20/16 08:56 POC ABG Total CO2 36 11/20/16 08:56 POC ABG O2 Sat 95 11/20/16 08:56 POC ABG Base Excess 10 11/20/16 08:56 VBG pH 7.319 (7.320-7.420) L 11/13/16 20:49 FiO2 35 % 11/20/16 08:56 Sodium 144 mmol/L (137-145) 11/20/16 08:41 Potassium 3.7 mmol/L (3.6-5.0) 11/20/16 08:41 Chloride 104.6 mmol/L (98-107) 11/20/16 08:41 Carbon Dioxide 31 mmol/L (22-30) H 11/20/16 08:41 Anion Gap 12 mmol/L 11/20/16 08:41 BUN 12 mg/dL (9-20) 11/20/16 08:41 Creatinine 0.3 mg/dL (0.8-1.5) L 11/20/16 08:41 Estimated GFR > 60 ml/min 11/20/16 08:41 BUN/Creatinine Ratio 40.00 % 11/20/16 08:41 Glucose 92 mg/dL (75-100) 11/20/16 08:41 POC Glucose 134 (70-105) H 11/20/16 05:07 Lactic Acid 0.70 mmol/L (0.7-2.0) 11/17/16 17:25 Calcium 8.1 mg/dL (8.4-10.2) L 11/20/16 08:41 Magnesium 1.70 mg/dL (1.7-2.3) 11/16/16 04:57 Total Bilirubin 0.30 mg/dL (0.1-1.2) 11/13/16 20:49 AST 27 units/L (5-40) 11/13/16 20:49 ALT 15 units/L (7-56) 11/13/16 20:49 Alkaline Phosphatase 103 units/L (35-129) 11/13/16 20:49 C-Reactive Protein 23.10 mg/dL (0.00-1.30) H 11/14/16 10:30 Total Protein 7.7 g/dL (6.3-8.2) 11/13/16 20:49 Albumin 2.7 g/dL (3.9-5) L 11/13/16 20:49 Albumin/Globulin Ratio 0.5 % 11/13/16 20:49 Urine Color Yellow (Yellow) 11/13/16 21:40 Urine Turbidity Clear (Clear) 11/13/16 21:40 Urine pH 7.0 (5.0-7.0) 11/13/16 21:40 Ur Specific [place] 1.008 (1.003-1.030) 11/13/16 21:40 Urine Protein <15 mg/dl mg/dL (Negative) 11/13/16 21:40 Urine Glucose (UA) Neg mg/dL (Negative) 11/13/16 21:40 Urine Ketones Neg mg/dL (Negative) 11/13/16 21:40 Urine Blood Lg (Negative) 11/13/16 21:40 Urine Nitrite Neg (Negative) 11/13/16 21:40 Urine Bilirubin Neg (Negative) 11/13/16 21:40 Urine Urobilinogen < 2.0 mg/dL (<2.0) 11/13/16 21:40 Ur Leukocyte Esterase Lg (Negative) 11/13/16 21:40 Urine WBC (Auto) 4.0 /HPF (0.0-6.0) 11/13/16 21:40 Urine RBC (Auto) 3.0 /HPF (0.0-6.0) 11/13/16 21:40 Urine Bacteria (Auto) 1+ /HPF (Negative) 11/13/16 21:40 Urine Mucus Few /HPF 11/13/16 21:40 Blood Type O POSITIVE 11/14/16 03:00 FREDDIE Antibody Screen Negative 11/14/16 03:00
[2016-11-21] MEDS: MERREM 1,000 MG in NACL 0.9% 100 ML IV SCH ×3 (02:49→18:59)
[2016-11-21] MEDS: NOVOLOG SUB-Q SCH ×4 (03:00→17:01)
[2016-11-21 06:07] LABS: Basophils % (Auto) 0.4 % (0.0-1.8); Eosinophils % (Auto) 2.1 % (0.0-4.3); Hemoglobin 10.9 gm/dl (11.8-15.2); Mean Corpuscular HGB Conc 32 % (32-34); Mean Corpuscular Hemoglobin 30 pg (28-32); Mean Corpuscular Volume 94 fl (84-94); Platelet Count 464 K/mm3 (140-440); Red Blood Count 3.61 M/mm3 (3.65-5.03); Red Cell Distribution Width 16.1 % (13.2-15.2); White Blood Count 14.2 K/mm3 (4.5-11.0)
[2016-11-21] MEDS: DUONEB *Not for PRN Use IH SCH ×4 (06:12→19:55)
[2016-11-21 06:19] LABS: Anion Gap 16 mmol/L; BUN/Creatinine Ratio 43.33; Blood Urea Nitrogen 13 mg/dL (9-20); Calcium 8.4 mg/dL (8.4-10.2); Carbon Dioxide 29 mmol/L (22-30); Chloride 103.7 mmol/L (98-107); Glucose 122 mg/dL (75-100); Potassium 3.8 mmol/L (3.6-5.0); Sodium 145 mmol/L (137-145)
[2016-11-21] MEDS: KEPPRA PO SCH ×2 (09:38→22:13)
[2016-11-21] MEDS: LOVENOX SUB-Q SCH (09:39)
[2016-11-21] MEDS: COLACE PO SCH ×2 (09:39→22:13)
[2016-11-21] MEDS: THERAGRAN Tab PO SCH (09:39)
[2016-11-21] MEDS: PEPCID PO SCH ×2 (09:40→22:13)
[2016-11-21] MEDS: ROBINUL PO SCH ×3 (10:21→22:21)
--- NOTE | 2016-11-21 11:55 | Query- Pneumonia ---
Avery Galan____Janice Date:___11/21/2016 Packaging Materials Inspector/CDS:___Dea Phone#:___[phone] Exercise your independent professional judgment when responding to query. Questions asked do not imply a particular answer is desired or expected. We greatly appreciate your clarification on this issue. Clinical Documentation States: 60 Year old male was admitted on 11/13/2016. The IM H&P note states "This is a 60-year-old man with a history of chronic respiratory failure, brain mass, trach, PEG, brain mass, hypertension, diabetes , seizure sent to the emergency room for respiratory distress, shortness of breath. Patient is nonverbal, history and review of system is unobtainable." The Hospitalist Progress note on 11/20/2016 states "Assessment and plan: --Bilateral pneumonia/atelectasis s/p bronchoscopy, suctioning secretions, supportive care Continue current antibiotics." The Pulmonology Progress note on 11/20/2016 states "(4) Pneumonia Current Visit: Yes Status: Acute Qualifiers: Pneumonia type: due to unspecified organism Aspiration pneumonia type: A Laterality: bilateral Lung location: lower lobe of lung Qualified Code(s): J18.9 - Pneumonia, unspecified organism." Clinical Findings Show: Antibiotics: IV Levaquin IV Zosyn Please further specify known or suspected Etiology: [ ] Aspiration Pneumonia [x ] Gram Negative Pneumonia [ ] Gram Positive Pneumonia [ ] Pseudomonas Pneumonia [ ] MRSA - related Pneumonia [ ] Viral Pneumonia [ ] Candidal Pneumonia [ ] Postoperative Pneumonia [ ] Lobar/Basilar Pneumonia [ ] Community Acquired Pneumonia [ ] Bacterial, other (Please specify organism if possible) [ ] Other: [ ] Unable to determine Present on Admission: [ x] Yes (Y) [ ] Clinically undeterminable (W) [ ] No (N) Please also document response in your Progress Notes and/or Discharge Summary and indicate if the condition was present on admission. [facility]
--- NOTE | 2016-11-21 12:56 | Progress Note ---
Assessment and Plan - Patient Problems (1) Acute hypoxemic respiratory failure Current Visit: Yes Status: Acute Plan to address problem: - continue aspiration precautions / VAP bundles - continue bronchodilators and pulmonary toilet - s/p bronchoscopy with suction of secretions re" Atelectasis - continue to wean oxygen for O2 Sats >/= 94% - tolerating PSV trials - s/p chest tube placement to right pleural space - continue RTC as tolerated - tolerating chest tube to water seal clinically; i will get CXR and then will plan to clamp in am (2) Atelectasis of both lungs Current Visit: Yes Status: Acute Plan to address problem: - s/p bronchoscopy with suction of airway secretions - reduced Peep to 5 due to pneumothorax though - CXR reviewed but atelectasis appears persisitent (3) Pneumothorax on right Current Visit: Yes Status: Acute Plan to address problem: - s/p chest tube - reduced Peep to 5 - pull chest tube once off positive pressure ventilation - chest tube to water seal - repeat CXR pending - clinically stable (4) Pneumonia Current Visit: Yes Status: Acute Qualifiers: Pneumonia type: due to unspecified organism Aspiration pneumonia type: A Laterality: bilateral Lung location: lower lobe of lung Qualified Code(s): J18.9 - Pneumonia, unspecified organism Plan to address problem: - continue to follow BAL studies - growing 2 strains of klebsiella resistant to levaquin - treating with Merem X 5 days - clinically stable (5) Encephalopathy acute Current Visit: No Status: Acute Plan to address problem: - improved - weaned of sedation used during bronchoscopy and chest tube placement (6) Sepsis syndrome Current Visit: No Status: Acute Plan to address problem: - improved clinically - treating with merem X 5 days re: sensitivities (7) Discharge planning issues Current Visit: Yes Status: Acute Plan to address problem: - keep on telemetry - back to [place] once chest tube out and FiO2 acceptable Subjective Date of service: 11/21/16 Principal diagnosis: Acute on Chronic Hypoxemic Respiratory Failure; Sepsis Syndrome Interval history: Seen and examined at bedside; 24 hour events reviewed; nursing and respiratory care staff consulted; no adverse overnight events reported to me; resting in bed ; remains on T-collar; denies acute chest pains or increased SOB; chest tube in place and no obvious leak Objective Vital Signs - 12hr 11/21/16 11/21/16 11/21/16 03:55 04:00 07:40 Temperature Pulse Rate 70 Pulse Rate [ 80 Bilateral Throughout] Pulse Rate [ Brachial] Respiratory 20 Rate Respiratory 18 Rate [Bilateral Throughout] Blood Pressure O2 Sat by Pulse 89 Oximetry O2 Sat by Pulse 96 Oximetry [ Assessment] 11/21/16 11/21/16 11/21/16 07:55 08:00 09:44 Temperature 99.7 F H Pulse Rate Pulse Rate [ 85 Bilateral Throughout] Pulse Rate [ 85 Brachial] Respiratory 18 Rate Respiratory 18 Rate [Bilateral Throughout] Blood Pressure 111/69 O2 Sat by Pulse 98 98 Oximetry O2 Sat by Pulse Oximetry [ Assessment] 11/21/16 11/21/16 10:05 12:00 Temperature 99.3 F Pulse Rate Pulse Rate [ Bilateral Throughout] Pulse Rate [ 95 H Brachial] Respiratory 16 18 Rate Respiratory Rate [Bilateral Throughout] Blood Pressure 109/66 O2 Sat by Pulse 98 Oximetry O2 Sat by Pulse Oximetry [ Assessment] Constitutional: no acute distress, other (somnolent; mild cognitive dysfunction) Eyes: non-icteric ENT: oropharynx moist Neck: supple, no lymphadenopathy Effort: mildly labored Ascultation: Right: rales, Bilateral: diminished breath sounds (bases) Cardiovascular: regular rate and rhythm Gastrointestinal: normoactive bowel sounds, soft, non-tender, non-distended Integumentary: normal Extremities: no cyanosis, no edema, pink and warm, pulses normal Neurologic: normal mental status, non-focal exam (post-CVA hemiparesis; 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 (12.2-14.9) H 11/13/16 20:49 INR 1.19 (0.87-1.13) H 11/13/16 20:49 D-Dimer 2565.21 ng/mlDDU (0-234) H 11/13/16 20:49 Abnormal lab findings: Abnormal Labs 11/14/16 11/14/16 11/14/16 00:49 05:49 10:30 WBC RBC Hgb Hct MCV RDW Plt Count Lymph % (Auto) [place] % (Auto) Lymph # [place] # Seg Neutrophils % Seg Neutrophils # POC ABG pH 7.455 H POC ABG pCO2 54.2 H 46.9 H POC ABG pO2 109 H Potassium Carbon Dioxide BUN Creatinine Glucose POC Glucose Calcium C-Reactive Protein 23.10 H 11/14/16 11/14/16 11/15/16 13:20 23:26 04:13 WBC 16.1 H RBC 3.08 L Hgb 9.4 L Hct 28.4 L D MCV RDW 15.8 H Plt Count Lymph % (Auto) 6.1 L [place] % (Auto) 8.5 H Lymph # 1.0 L [place] # 1.4 H Seg Neutrophils % 84.7 H Seg Neutrophils # 13.6 H POC ABG pH 7.454 H POC ABG pCO2 POC ABG pO2 69 L Potassium Carbon Dioxide BUN Creatinine Glucose POC Glucose 118 H Calcium C-Reactive Protein 11/15/16 11/15/16 11/15/16 04:13 04:52 23:40 WBC RBC Hgb Hct MCV RDW Plt Count Lymph % (Auto) [place] % (Auto) Lymph # [place] # Seg Neutrophils % Seg Neutrophils # POC ABG pH 7.488 H POC ABG pCO2 45.4 H POC ABG pO2 72 L Potassium 3.4 L D Carbon Dioxide 31 H BUN Creatinine 0.4 L Glucose 103 H POC Glucose 106 H Calcium C-Reactive Protein 11/16/16 11/16/16 11/16/16 04:57 04:57 10:51 WBC RBC 3.00 L Hgb 9.2 L Hct 28.4 L MCV 95 H RDW 16.0 H Plt Count Lymph % (Auto) 10.6 L [place] % (Auto) 8.7 H Lymph # 1.1 L [place] # 0.9 H Seg Neutrophils % 78.2 H Seg Neutrophils # 8.2 H POC ABG pH POC ABG pCO2 48.7 H POC ABG pO2 70 L Potassium 3.4 L Carbon Dioxide BUN Creatinine 0.4 L Glucose POC Glucose Calcium C-Reactive Protein 11/16/16 11/16/16 11/17/16 18:00 23:53 03:33 WBC RBC 3.06 L Hgb 9.4 L Hct 28.6 L MCV RDW 16.2 H Plt Count Lymph % (Auto) 12.3 L [place] % (Auto) 9.6 H Lymph # 1.1 L [place] # Seg Neutrophils % 74.2 H Seg Neutrophils # POC ABG pH POC ABG pCO2 POC ABG pO2 Potassium Carbon Dioxide BUN Creatinine Glucose POC Glucose 143 H 149 H Calcium C-Reactive Protein 11/17/16 11/17/16 11/17/16 03:33 03:39 04:59 WBC RBC Hgb Hct MCV RDW Plt Count Lymph % (Auto) [place] % (Auto) Lymph # [place] # Seg Neutrophils % Seg Neutrophils # POC ABG pH POC ABG pCO2 50.6 H POC ABG pO2 Potassium 3.5 L Carbon Dioxide 31 H BUN Creatinine 0.3 L Glucose 125 H POC Glucose 140 H Calcium C-Reactive Protein 11/17/16 11/17/16 11/17/16 11:26 16:08 17:38 WBC RBC Hgb Hct MCV RDW Plt Count Lymph % (Auto) [place] % (Auto) Lymph # [place] # Seg Neutrophils % Seg Neutrophils # POC ABG pH 7.460 H POC ABG pCO2 51.2 H POC ABG pO2 115 H Potassium Carbon Dioxide BUN Creatinine Glucose POC Glucose 142 H 143 H Calcium C-Reactive Protein 11/17/16 11/18/16 11/18/16 23:42 03:34 04:10 WBC RBC Hgb Hct MCV RDW Plt Count Lymph % (Auto) [place] % (Auto) Lymph # [place] # Seg Neutrophils % Seg Neutrophils # POC ABG pH POC ABG pCO2 48.4 H POC ABG pO2 72 L Potassium Carbon Dioxide BUN 8 L Creatinine 0.3 L Glucose POC Glucose 121 H Calcium 8.1 L C-Reactive Protein 11/18/16 11/18/16 11/19/16 04:10 12:21 04:01 WBC RBC 2.89 L Hgb 8.8 L Hct 27.1 L MCV RDW 15.9 H Plt Count Lymph % (Auto) [place] % (Auto) 8.1 H Lymph # 1.1 L [place] # Seg Neutrophils % 74.4 H Seg Neutrophils # POC ABG pH POC ABG pCO2 47.5 H POC ABG pO2 Potassium Carbon Dioxide BUN Creatinine Glucose POC Glucose 111 H Calcium C-Reactive Protein 11/19/16 11/19/16 11/20/16 12:00 23:39 05:07 WBC RBC Hgb Hct MCV RDW Plt Count Lymph % (Auto) [place] % (Auto) Lymph # [place] # Seg Neutrophils % Seg Neutrophils # POC ABG pH POC ABG pCO2 POC ABG pO2 Potassium Carbon Dioxide BUN Creatinine Glucose POC Glucose 118 H 127 H 134 H Calcium C-Reactive Protein 11/20/16 11/20/16 11/20/16 08:41 08:41 08:56 WBC RBC 3.37 L Hgb 10.3 L Hct 31.2 L MCV RDW 15.9 H Plt Count Lymph % (Auto) [place] % (Auto) 7.4 H Lymph # [place] # Seg Neutrophils % Seg Neutrophils # POC ABG pH POC ABG pCO2 51.9 H POC ABG pO2 77 L Potassium Carbon Dioxide 31 H BUN Creatinine 0.3 L Glucose POC Glucose Calcium 8.1 L C-Reactive Protein 11/20/16 11/20/16 11/21/16 11:22 16:45 03:38 WBC RBC Hgb Hct MCV RDW Plt Count Lymph % (Auto) [place] % (Auto) Lymph # [place] # Seg Neutrophils % Seg Neutrophils # POC ABG pH POC ABG pCO2 POC ABG pO2 Potassium Carbon Dioxide BUN Creatinine Glucose POC Glucose 116 H 106 H 125 H Calcium C-Reactive Protein 11/21/16 11/21/16 11/21/16 04:49 04:49 12:04 WBC 14.2 H RBC 3.61 L Hgb 10.9 L Hct 34.0 L MCV RDW 16.1 H Plt Count 464 H Lymph % (Auto) 10.2 L [place] % (Auto) Lymph # [place] # Seg Neutrophils % 82.5 H Seg Neutrophils # 11.8 H POC ABG pH POC ABG pCO2 POC ABG pO2 Potassium Carbon Dioxide BUN Creatinine 0.3 L Glucose 122 H POC Glucose 136 H Calcium C-Reactive Protein Chest x-ray: image reviewed
--- NOTE | 2016-11-21 13:32 | XRay Report ---
AP CHEST: HISTORY: Follow up pneumothorax The right chest tube remains in the same position. No recurrent right pneumothorax is visualized. There is decreased vascular congestion and bibasilar atelectasis. Small left pleural effusion is stable. Heart size remains within normal limits. The left arm PICC has changed position since 11/19/16 and now crosses midline to terminate in the right brachiocephalic vein. IMPRESSION: No recurrent right pneumothorax appreciated.
--- NOTE | 2016-11-21 16:36 | Progress Note ---
Assessment and Plan Assessment and plan: --Acute on chronic hypoxemic respiratory failure/tracheostomy; Nebulizers, IV steroids and IV antibiotics, inhalation steroids Status post bronchoscopy with suctioning of secretions, pulmonary following --Bilateral pneumonia/atelectasis s/p bronchoscopy, suctioning secretions, supportive care Continue current antibiotics --Right pneumothorax: s/p right chest tube placement with drainage --Sepsis secondary to bilateral pneumonia; continue current antibiotics Zosyn and Levaquin, --Type 2 diabetes mellitus; Accu-Chek sliding scale coverage and ADA diet and insulin --History of seizure disorder Seizure precautions, continue antiepileptic medications --DVT prophylaxis; Lovenox -- Peg and Trach. Care --CODE STATUS full code --Discharge planning per case management Consults and recommendations noted and appreciated This closely monitor the patient and adjust management as needed History Interval history: Patient seen and evaluated medical records reviewed Feel slightly better, no new complaints Alert and awake responding to questions, not in acute distress Chest tube underwater seal draining Hospitalist Physical - Constitutional Vitals: Temp Pulse Resp BP Pulse Ox 99.3 F 95 H 18 109/66 98 11/21/16 12:00 11/21/16 12:00 11/21/16 12:00 11/21/16 12:00 11/21/16 12:00 General appearance: Present: no acute distress, well-nourished - EENT Eyes: Present: PERRL, EOM intact - Neck Neck: Present: supple, normal ROM, other (status post tracheostomy) - Respiratory Respiratory effort: normal Respiratory: right: diminished, rhonchi, negative: rales, wheezing - Cardiovascular Rhythm: regular Heart Sounds: Present: S1 & S2 - Extremities Extremities: no ischemia, abnormal (contracted) Extremity abnormal: edema - Abdominal General gastrointestinal: soft, non-tender, non-distended, normal bowel sounds - Integumentary Integumentary: Present: clear, warm - Psychiatric Psychiatric: appropriate mood/affect - Neurologic Neurologic: CNII-XII intact Results - Labs CBC & Chem 7: 11/21/16 04:49 11/21/16 04:49 Labs: Laboratory Last Values WBC 14.2 K/mm3 (4.5-11.0) H 11/21/16 04:49 RBC 3.61 M/mm3 (3.65-5.03) L 11/21/16 04:49 Hgb 10.9 gm/dl (11.8-15.2) L 11/21/16 04:49 Hct 34.0 % (35.5-45.6) L 11/21/16 04:49 MCV 94 fl (84-94) 11/21/16 04:49 MCH 30 pg (28-32) 11/21/16 04:49 MCHC 32 % (32-34) 11/21/16 04:49 RDW 16.1 % (13.2-15.2) H 11/21/16 04:49 Plt Count 464 K/mm3 (140-440) H 11/21/16 04:49 Lymph % (Auto) 10.2 % (13.4-35.0) L 11/21/16 04:49 [place] % (Auto) 4.8 % (0.0-7.3) 11/21/16 04:49 Eos % (Auto) 2.1 % (0.0-4.3) 11/21/16 04:49 Baso % (Auto) 0.4 % (0.0-1.8) 11/21/16 04:49 Lymph # 1.4 K/mm3 (1.2-5.4) 11/21/16 04:49 [place] # 0.7 K/mm3 (0.0-0.8) 11/21/16 04:49 Eos # 0.3 K/mm3 (0.0-0.4) 11/21/16 04:49 Baso # 0.1 K/mm3 (0.0-0.1) 11/21/16 04:49 Seg Neutrophils % 82.5 % (40.0-70.0) H 11/21/16 04:49 Seg Neutrophils # 11.8 K/mm3 (1.8-7.7) H 11/21/16 04:49 PT 15.7 Sec. (12.2-14.9) H 11/13/16 20:49 INR 1.19 (0.87-1.13) H 11/13/16 20:49 D-Dimer 2565.21 ng/mlDDU (0-234) H 11/13/16 20:49 POC ABG pH 7.425 (7.35-7.45) 11/20/16 08:56 POC ABG pCO2 51.9 (35-45) H 11/20/16 08:56 POC ABG pO2 77 (80-105) L 11/20/16 08:56 POC ABG HCO3 34.0 11/20/16 08:56 POC ABG Total CO2 36 11/20/16 08:56 POC ABG O2 Sat 95 11/20/16 08:56 POC ABG Base Excess 10 11/20/16 08:56 VBG pH 7.319 (7.320-7.420) L 11/13/16 20:49 FiO2 35 % 11/20/16 08:56 Sodium 145 mmol/L (137-145) 11/21/16 04:49 Potassium 3.8 mmol/L (3.6-5.0) 11/21/16 04:49 Chloride 103.7 mmol/L (98-107) 11/21/16 04:49 Carbon Dioxide 29 mmol/L (22-30) 11/21/16 04:49 Anion Gap 16 mmol/L 11/21/16 04:49 BUN 13 mg/dL (9-20) 11/21/16 04:49 Creatinine 0.3 mg/dL (0.8-1.5) L 11/21/16 04:49 Estimated GFR > 60 ml/min 11/21/16 04:49 BUN/Creatinine Ratio 43.33 % 11/21/16 04:49 Glucose 122 mg/dL (75-100) H 11/21/16 04:49 POC Glucose 136 (70-105) H 11/21/16 12:04 Lactic Acid 0.70 mmol/L (0.7-2.0) 11/17/16 17:25 Calcium 8.4 mg/dL (8.4-10.2) 11/21/16 04:49 Magnesium 1.70 mg/dL (1.7-2.3) 11/16/16 04:57 Total Bilirubin 0.30 mg/dL (0.1-1.2) 11/13/16 20:49 AST 27 units/L (5-40) 11/13/16 20:49 ALT 15 units/L (7-56) 11/13/16 20:49 Alkaline Phosphatase 103 units/L (35-129) 11/13/16 20:49 C-Reactive Protein 23.10 mg/dL (0.00-1.30) H 11/14/16 10:30 Total Protein 7.7 g/dL (6.3-8.2) 11/13/16 20:49 Albumin 2.7 g/dL (3.9-5) L 11/13/16 20:49 Albumin/Globulin Ratio 0.5 % 11/13/16 20:49 Urine Color Yellow (Yellow) 11/13/16 21:40 Urine Turbidity Clear (Clear) 11/13/16 21:40 Urine pH 7.0 (5.0-7.0) 11/13/16 21:40 Ur Specific [place] 1.008 (1.003-1.030) 11/13/16 21:40 Urine Protein <15 mg/dl mg/dL (Negative) 11/13/16 21:40 Urine Glucose (UA) Neg mg/dL (Negative) 11/13/16 21:40 Urine Ketones Neg mg/dL (Negative) 11/13/16 21:40 Urine Blood Lg (Negative) 11/13/16 21:40 Urine Nitrite Neg (Negative) 11/13/16 21:40 Urine Bilirubin Neg (Negative) 11/13/16 21:40 Urine Urobilinogen < 2.0 mg/dL (<2.0) 11/13/16 21:40 Ur Leukocyte Esterase Lg (Negative) 11/13/16 21:40 Urine WBC (Auto) 4.0 /HPF (0.0-6.0) 11/13/16 21:40 Urine RBC (Auto) 3.0 /HPF (0.0-6.0) 11/13/16 21:40 Urine Bacteria (Auto) 1+ /HPF (Negative) 11/13/16 21:40 Urine Mucus Few /HPF 11/13/16 21:40 Blood Type O POSITIVE 11/14/16 03:00 FREDDIE Antibody Screen Negative 11/14/16 03:00
[2016-11-22] MEDS: NOVOLOG SUB-Q SCH ×4 (01:39→18:09)
[2016-11-22] MEDS: DUONEB *Not for PRN Use IH SCH ×4 (02:14→19:30)
[2016-11-22] MEDS: MERREM 1,000 MG in NACL 0.9% 100 ML IV SCH ×3 (02:36→18:15)
[2016-11-22 06:45] LABS: BUN/Creatinine Ratio 56.66; Blood Urea Nitrogen 17 mg/dL (9-20); Calcium 9.1 mg/dL (8.4-10.2); Carbon Dioxide 35 mmol/L (22-30); Glucose 150 mg/dL (75-100)
[2016-11-22 06:46] LABS: Anion Gap 14 mmol/L; Chloride 100.5 mmol/L (98-107); Potassium 4.4 mmol/L (3.6-5.0); Sodium 145 mmol/L (137-145)
--- NOTE | 2016-11-22 07:36 | Progress Note ---
Assessment and Plan - Patient Problems (1) Pneumonia Current Visit: Yes Status: Acute Qualifiers: Pneumonia type: due to unspecified organism Aspiration pneumonia type: A Laterality: bilateral Lung location: lower lobe of lung Qualified Code(s): J18.9 - Pneumonia, unspecified organism Plan to address problem: Continue Meropenem to complete a 10-14-day course. Subjective Date of service: 11/22/16 Principal diagnosis: Acute on Chronic Hypoxemic Respiratory Failure; Sepsis Syndrome Interval history: No new clinical changes. Objective - Constitutional Vitals: Vital Signs Temp Pulse Resp BP Pulse Ox 98.0 F 103 H 20 105/67 91 11/22/16 04:41 11/22/16 04:41 11/22/16 04:41 11/22/16 04:41 11/22/16 04:41 Temperature -Last 24 Hours Temperature 98.0 F Temperature 98.9 F Temperature 98.6 F Temperature 99.3 F Temperature 99.3 F Temperature 99.7 F General appearance: Present: other (asleep) - Respiratory Respiratory effort: normal Respiratory: right: other (chest tube in place), bilateral: CTA (tracheostomy T piece), negative: rhonchi - Cardiovascular Rhythm: regular Heart Sounds: Present: S1 & S2 Extremities: No edema - Gastrointestinal General gastrointestinal: Present: soft, other ((+) PEG without inflammation) - Genitourinary Male genitourinary: normal (Smith with normal-appearing urine) - Integumentary Integumentary: no rash - Labs CBC & Chem 7: 11/21/16 04:49 11/22/16 05:54 Labs: Abnormal lab results 11/21/16 11/21/16 11/21/16 Range/Units 12:04 16:45 22:12 Carbon Dioxide (22-30) mmol/L Creatinine (0.8-1.5) mg/dL Glucose (75-100) mg/dL POC Glucose 136 H 119 H 111 H (70-105) 11/22/16 Range/Units 05:54 Carbon Dioxide 35 H (22-30) mmol/L Creatinine 0.3 L (0.8-1.5) mg/dL Glucose 150 H (75-100) mg/dL POC Glucose (70-105) Microbiology 11/13/16 21:31 Peripheral/Venous Blood Culture - Final NO GROWTH AFTER 5 DAYS 11/13/16 20:49 Peripheral/Venous Blood Culture - Final NO GROWTH AFTER 5 DAYS 11/15/16 13:20 Bronchial Washings - Right Middle Lobe Respiratory Culture - Final Diphtheroids 11/14/16 12:25 Tracheal Aspirate Sputum Culture - Final Klebsiella Oxytoca Klebsiella Oxytoca#2 11/13/16 21:31 Urine,Catheterized - Indwelling Catheter Urine Culture - Final - Imaging and cardiology Chest x-ray: report reviewed (PICC crossing midline to right brachiocephalic vein)
--- NOTE | 2016-11-22 08:06 | Progress Note ---
Assessment and Plan Assessment and plan: --Acute on chronic hypoxemic respiratory failure/tracheostomy; Nebulizers, IV steroids and IV antibiotics, inhalation steroids Status post bronchoscopy with suctioning of secretions, pulmonary following --Bilateral pneumonia/atelectasis s/p bronchoscopy, suctioning secretions, supportive care Continue current antibiotics --Right pneumothorax: s/p right chest tube placement with drainage --Sepsis secondary to bilateral pneumonia; continue current antibiotics Zosyn and Levaquin, --Type 2 diabetes mellitus; Accu-Chek sliding scale coverage and ADA diet and insulin --History of seizure disorder Seizure precautions, continue antiepileptic medications --DVT prophylaxis; Lovenox -- Peg and Trach. Care --CODE STATUS full code --Discharge planning per case management Possible discharge in 1-2 days if stable History Interval history: Patient seen and evaluated No new complaints, no events reported by the nursing staff Vital signs reviewed Hospitalist Physical - Constitutional Vitals: Temp Pulse Resp BP Pulse Ox 98.0 F 103 H 20 105/67 91 11/22/16 04:41 11/22/16 04:41 11/22/16 04:41 11/22/16 04:41 11/22/16 04:41 General appearance: Present: no acute distress, well-nourished - EENT Eyes: Present: PERRL, EOM intact - Neck Neck: Present: supple, other (tracheostomy in place) - Respiratory Respiratory effort: normal Respiratory: negative: rales, rhonchi, wheezing - Cardiovascular Rhythm: regular Heart Sounds: Present: S1 & S2 - Extremities Extremities: no ischemia, abnormal (contracted) - Abdominal General gastrointestinal: soft, non-tender, non-distended, normal bowel sounds, other (PEG in place) - Integumentary Integumentary: Present: clear, warm - Psychiatric Psychiatric: other (noncommunicative) - Neurologic Neurologic: other (noncommunicative) Results - Labs CBC & Chem 7: 11/21/16 04:49 11/22/16 05:54 Labs: Laboratory Last Values WBC 14.2 K/mm3 (4.5-11.0) H 11/21/16 04:49 RBC 3.61 M/mm3 (3.65-5.03) L 11/21/16 04:49 Hgb 10.9 gm/dl (11.8-15.2) L 11/21/16 04:49 Hct 34.0 % (35.5-45.6) L 11/21/16 04:49 MCV 94 fl (84-94) 11/21/16 04:49 MCH 30 pg (28-32) 11/21/16 04:49 MCHC 32 % (32-34) 11/21/16 04:49 RDW 16.1 % (13.2-15.2) H 11/21/16 04:49 Plt Count 464 K/mm3 (140-440) H 11/21/16 04:49 Lymph % (Auto) 10.2 % (13.4-35.0) L 11/21/16 04:49 [place] % (Auto) 4.8 % (0.0-7.3) 11/21/16 04:49 Eos % (Auto) 2.1 % (0.0-4.3) 11/21/16 04:49 Baso % (Auto) 0.4 % (0.0-1.8) 11/21/16 04:49 Lymph # 1.4 K/mm3 (1.2-5.4) 11/21/16 04:49 [place] # 0.7 K/mm3 (0.0-0.8) 11/21/16 04:49 Eos # 0.3 K/mm3 (0.0-0.4) 11/21/16 04:49 Baso # 0.1 K/mm3 (0.0-0.1) 11/21/16 04:49 Seg Neutrophils % 82.5 % (40.0-70.0) H 11/21/16 04:49 Seg Neutrophils # 11.8 K/mm3 (1.8-7.7) H 11/21/16 04:49 PT 15.7 Sec. (12.2-14.9) H 11/13/16 20:49 INR 1.19 (0.87-1.13) H 11/13/16 20:49 D-Dimer 2565.21 ng/mlDDU (0-234) H 11/13/16 20:49 POC ABG pH 7.425 (7.35-7.45) 11/20/16 08:56 POC ABG pCO2 51.9 (35-45) H 11/20/16 08:56 POC ABG pO2 77 (80-105) L 11/20/16 08:56 POC ABG HCO3 34.0 11/20/16 08:56 POC ABG Total CO2 36 11/20/16 08:56 POC ABG O2 Sat 95 11/20/16 08:56 POC ABG Base Excess 10 11/20/16 08:56 VBG pH 7.319 (7.320-7.420) L 11/13/16 20:49 FiO2 35 % 11/20/16 08:56 Sodium 145 mmol/L (137-145) 11/22/16 05:54 Potassium 4.4 mmol/L (3.6-5.0) 11/22/16 05:54 Chloride 100.5 mmol/L (98-107) 11/22/16 05:54 Carbon Dioxide 35 mmol/L (22-30) H 11/22/16 05:54 Anion Gap 14 mmol/L 11/22/16 05:54 BUN 17 mg/dL (9-20) 11/22/16 05:54 Creatinine 0.3 mg/dL (0.8-1.5) L 11/22/16 05:54 Estimated GFR > 60 ml/min 11/22/16 05:54 BUN/Creatinine Ratio 56.66 % 11/22/16 05:54 Glucose 150 mg/dL (75-100) H 11/22/16 05:54 POC Glucose 111 (70-105) H 11/21/16 22:12 Lactic Acid 0.70 mmol/L (0.7-2.0) 11/17/16 17:25 Calcium 9.1 mg/dL (8.4-10.2) 11/22/16 05:54 Magnesium 1.70 mg/dL (1.7-2.3) 11/16/16 04:57 Total Bilirubin 0.30 mg/dL (0.1-1.2) 11/13/16 20:49 AST 27 units/L (5-40) 11/13/16 20:49 ALT 15 units/L (7-56) 11/13/16 20:49 Alkaline Phosphatase 103 units/L (35-129) 11/13/16 20:49 C-Reactive Protein 23.10 mg/dL (0.00-1.30) H 11/14/16 10:30 Total Protein 7.7 g/dL (6.3-8.2) 11/13/16 20:49 Albumin 2.7 g/dL (3.9-5) L 11/13/16 20:49 Albumin/Globulin Ratio 0.5 % 11/13/16 20:49 Urine Color Yellow (Yellow) 11/13/16 21:40 Urine Turbidity Clear (Clear) 11/13/16 21:40 Urine pH 7.0 (5.0-7.0) 11/13/16 21:40 Ur Specific [place] 1.008 (1.003-1.030) 11/13/16 21:40 Urine Protein <15 mg/dl mg/dL (Negative) 11/13/16 21:40 Urine Glucose (UA) Neg mg/dL (Negative) 11/13/16 21:40 Urine Ketones Neg mg/dL (Negative) 11/13/16 21:40 Urine Blood Lg (Negative) 11/13/16 21:40 Urine Nitrite Neg (Negative) 11/13/16 21:40 Urine Bilirubin Neg (Negative) 11/13/16 21:40 Urine Urobilinogen < 2.0 mg/dL (<2.0) 11/13/16 21:40 Ur Leukocyte Esterase Lg (Negative) 11/13/16 21:40 Urine WBC (Auto) 4.0 /HPF (0.0-6.0) 11/13/16 21:40 Urine RBC (Auto) 3.0 /HPF (0.0-6.0) 11/13/16 21:40 Urine Bacteria (Auto) 1+ /HPF (Negative) 11/13/16 21:40 Urine Mucus Few /HPF 11/13/16 21:40 Blood Type O POSITIVE 11/14/16 03:00 FREDDIE Antibody Screen Negative 11/14/16 03:00
--- NOTE | 2016-11-22 09:44 | XRay Report ---
AP CHEST: HISTORY: Follow up respiratory failure Lines and support devices are unchanged in position. Partial bilateral lobe atelectasis and small left pleural effusion have not significantly changed since yesterday's exam. Heart size remains within normal limits. IMPRESSION: No change.
[2016-11-22] MEDS: ROBINUL PO SCH (09:54)
[2016-11-22] MEDS: KEPPRA PO SCH ×2 (09:54→21:59)
[2016-11-22] MEDS: COLACE PO SCH ×2 (09:55→21:57)
[2016-11-22] MEDS: PEPCID PO SCH ×2 (09:55→21:58)
[2016-11-22] MEDS: LOVENOX SUB-Q SCH (09:55)
[2016-11-22] MEDS: THERAGRAN Tab PO SCH (09:55)
--- NOTE | 2016-11-22 13:00 | Progress Note ---
Assessment and Plan - Patient Problems (1) Acute hypoxemic respiratory failure Current Visit: Yes Status: Acute Plan to address problem: - continue aspiration precautions / VAP bundles - continue bronchodilators and pulmonary toilet - s/p bronchoscopy with suction of secretions re" Atelectasis - continue to wean oxygen for O2 Sats >/= 94% - tolerating PSV trials - s/p chest tube placement to right pleural space - continue RTC as tolerated - CXR reviewed and no recurrent pneumothorax however unclear if there was a tight seal in place on the clamp; i have added gauze to keep hemostat froom lacerating chest tube but have instructed the RN's to get a new vacutainer if necessary but use the provided blue clamp - will repeat CXR in am and plen to pull chest tube thereafter (2) Atelectasis of both lungs Current Visit: Yes Status: Acute Plan to address problem: - s/p bronchoscopy with suction of airway secretions - reduced Peep to 5 due to pneumothorax though - CXR reviewed but atelectasis appears persisitent (3) Pneumothorax on right Current Visit: Yes Status: Acute Plan to address problem: - s/p chest tube - reduced Peep to 5 - pull chest tube once off positive pressure ventilation - chest tube to water seal - repeat CXR pending - clinically stable - as above (4) Pneumonia Current Visit: Yes Status: Acute Qualifiers: Pneumonia type: due to unspecified organism Aspiration pneumonia type: A Laterality: bilateral Lung location: lower lobe of lung Qualified Code(s): J18.9 - Pneumonia, unspecified organism Plan to address problem: - continue to follow BAL studies - growing 2 strains of klebsiella resistant to levaquin - treating with Merem X 5 days - clinically stable (5) Encephalopathy acute Current Visit: No Status: Acute Plan to address problem: - improved - weaned of sedation used during bronchoscopy and chest tube placement (6) Sepsis syndrome Current Visit: No Status: Acute Plan to address problem: - improved clinically - treating with merem X 5 days re: sensitivities (7) Discharge planning issues Current Visit: Yes Status: Acute Plan to address problem: - keep on telemetry - back to NH once chest tube out and FiO2 acceptable Subjective Date of service: 11/22/16 Principal diagnosis: Acute on Chronic Hypoxemic Respiratory Failure; Sepsis Syndrome Interval history: Seen and examined at bedside; 24 hour events reviewed; nursing and respiratory care staff consulted; no adverse overnight events reported to me; resting in bed ; RN unable to find vacutainer device clamp and improvised with hemostat but no gauze shielding done to prevent tube laceration; he is stable though and resting peacefully in bed; remains on supplemental oxygen at 50% with some room to wean Objective Vital Signs - 12hr 11/22/16 11/22/16 11/22/16 01:21 02:15 02:29 Temperature 98.9 F Pulse Rate Pulse Rate [ 112 H 111 H Bilateral Throughout] Pulse Rate [ 108 H Brachial] Respiratory 20 Rate Respiratory 18 16 Rate [Bilateral Throughout] Respiratory Rate [Left Hip] Blood Pressure 114/66 O2 Sat by Pulse 90 Oximetry 11/22/16 11/22/16 11/22/16 04:41 08:00 08:19 Temperature 98.0 F 98.5 F Pulse Rate Pulse Rate [ 106 H Bilateral Throughout] Pulse Rate [ 103 H 92 H Brachial] Respiratory 20 26 H Rate Respiratory 18 Rate [Bilateral Throughout] Respiratory Rate [Left Hip] Blood Pressure 105/67 108/68 O2 Sat by Pulse 91 97 Oximetry 11/22/16 11/22/16 11/22/16 08:31 08:32 10:24 Temperature Pulse Rate Pulse Rate [ 107 H Bilateral Throughout] Pulse Rate [ Brachial] Respiratory Rate Respiratory 18 Rate [Bilateral Throughout] Respiratory 18 Rate [Left Hip] Blood Pressure O2 Sat by Pulse 95 Oximetry 11/22/16 11/22/16 10:25 12:00 Temperature 99.0 F Pulse Rate 87 Pulse Rate [ Bilateral Throughout] Pulse Rate [ Brachial] Respiratory 18 26 H Rate Respiratory Rate [Bilateral Throughout] Respiratory Rate [Left Hip] Blood Pressure 101/66 O2 Sat by Pulse 95 Oximetry Constitutional: no acute distress, other (somnolent; mild cognitive dysfunction) Eyes: non-icteric ENT: oropharynx moist Neck: supple, no lymphadenopathy Effort: mildly labored Ascultation: Bilateral: diminished breath sounds (bases) Cardiovascular: regular rate and rhythm Gastrointestinal: normoactive bowel sounds, soft, non-tender, non-distended Integumentary: normal Extremities: no cyanosis, no edema, pink and warm, pulses normal Neurologic: normal mental status, non-focal exam (post-CVA hemiparesis; 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 (12.2-14.9) H 11/13/16 20:49 INR 1.19 (0.87-1.13) H 11/13/16 20:49 D-Dimer 2565.21 ng/mlDDU (0-234) H 11/13/16 20:49 Abnormal lab findings: Abnormal Labs 11/14/16 11/14/16 11/14/16 00:49 05:49 10:30 WBC RBC Hgb Hct MCV RDW Plt Count Lymph % (Auto) [place] % (Auto) Lymph # [place] # Seg Neutrophils % Seg Neutrophils # POC ABG pH 7.455 H POC ABG pCO2 54.2 H 46.9 H POC ABG pO2 109 H Potassium Carbon Dioxide BUN Creatinine Glucose POC Glucose Calcium C-Reactive Protein 23.10 H 11/14/16 11/14/16 11/15/16 13:20 23:26 04:13 WBC 16.1 H RBC 3.08 L Hgb 9.4 L Hct 28.4 L D MCV RDW 15.8 H Plt Count Lymph % (Auto) 6.1 L [place] % (Auto) 8.5 H Lymph # 1.0 L [place] # 1.4 H Seg Neutrophils % 84.7 H Seg Neutrophils # 13.6 H POC ABG pH 7.454 H POC ABG pCO2 POC ABG pO2 69 L Potassium Carbon Dioxide BUN Creatinine Glucose POC Glucose 118 H Calcium C-Reactive Protein 11/15/16 11/15/16 11/15/16 04:13 04:52 23:40 WBC RBC Hgb Hct MCV RDW Plt Count Lymph % (Auto) [place] % (Auto) Lymph # [place] # Seg Neutrophils % Seg Neutrophils # POC ABG pH 7.488 H POC ABG pCO2 45.4 H POC ABG pO2 72 L Potassium 3.4 L D Carbon Dioxide 31 H BUN Creatinine 0.4 L Glucose 103 H POC Glucose 106 H Calcium C-Reactive Protein 11/16/16 11/16/16 11/16/16 04:57 04:57 10:51 WBC RBC 3.00 L Hgb 9.2 L Hct 28.4 L MCV 95 H RDW 16.0 H Plt Count Lymph % (Auto) 10.6 L [place] % (Auto) 8.7 H Lymph # 1.1 L [place] # 0.9 H Seg Neutrophils % 78.2 H Seg Neutrophils # 8.2 H POC ABG pH POC ABG pCO2 48.7 H POC ABG pO2 70 L Potassium 3.4 L Carbon Dioxide BUN Creatinine 0.4 L Glucose POC Glucose Calcium C-Reactive Protein 11/16/16 11/16/16 11/17/16 18:00 23:53 03:33 WBC RBC 3.06 L Hgb 9.4 L Hct 28.6 L MCV RDW 16.2 H Plt Count Lymph % (Auto) 12.3 L [place] % (Auto) 9.6 H Lymph # 1.1 L [place] # Seg Neutrophils % 74.2 H Seg Neutrophils # POC ABG pH POC ABG pCO2 POC ABG pO2 Potassium Carbon Dioxide BUN Creatinine Glucose POC Glucose 143 H 149 H Calcium C-Reactive Protein 11/17/16 11/17/16 11/17/16 03:33 03:39 04:59 WBC RBC Hgb Hct MCV RDW Plt Count Lymph % (Auto) [place] % (Auto) Lymph # [place] # Seg Neutrophils % Seg Neutrophils # POC ABG pH POC ABG pCO2 50.6 H POC ABG pO2 Potassium 3.5 L Carbon Dioxide 31 H BUN Creatinine 0.3 L Glucose 125 H POC Glucose 140 H Calcium C-Reactive Protein 11/17/16 11/17/16 11/17/16 11:26 16:08 17:38 WBC RBC Hgb Hct MCV RDW Plt Count Lymph % (Auto) [place] % (Auto) Lymph # [place] # Seg Neutrophils % Seg Neutrophils # POC ABG pH 7.460 H POC ABG pCO2 51.2 H POC ABG pO2 115 H Potassium Carbon Dioxide BUN Creatinine Glucose POC Glucose 142 H 143 H Calcium C-Reactive Protein 0711/18/16 11/18/16 23:42 03:34 04:10 WBC RBC Hgb Hct MCV RDW Plt Count Lymph % (Auto) [place] % (Auto) Lymph # [place] # Seg Neutrophils % Seg Neutrophils # POC ABG pH POC ABG pCO2 48.4 H POC ABG pO2 72 L Potassium Carbon Dioxide BUN 8 L Creatinine 0.3 L Glucose POC Glucose 121 H Calcium 8.1 L C-Reactive Protein 11/18/16 11/18/16 11/19/16 04:10 12:21 04:01 WBC RBC 2.89 L Hgb 8.8 L Hct 27.1 L MCV RDW 15.9 H Plt Count Lymph % (Auto) [place] % (Auto) 8.1 H Lymph # 1.1 L [place] # Seg Neutrophils % 74.4 H Seg Neutrophils # POC ABG pH POC ABG pCO2 47.5 H POC ABG pO2 Potassium Carbon Dioxide BUN Creatinine Glucose POC Glucose 111 H Calcium C-Reactive Protein 11/19/16 11/19/16 11/20/16 12:00 23:39 05:07 WBC RBC Hgb Hct MCV RDW Plt Count Lymph % (Auto) [place] % (Auto) Lymph # [place] # Seg Neutrophils % Seg Neutrophils # POC ABG pH POC ABG pCO2 POC ABG pO2 Potassium Carbon Dioxide BUN Creatinine Glucose POC Glucose 118 H 127 H 134 H Calcium C-Reactive Protein 11/20/16 11/20/16 11/20/16 08:41 08:41 08:56 WBC RBC 3.37 L Hgb 10.3 L Hct 31.2 L MCV RDW 15.9 H Plt Count Lymph % (Auto) [place] % (Auto) 7.4 H Lymph # [place] # Seg Neutrophils % Seg Neutrophils # POC ABG pH POC ABG pCO2 51.9 H POC ABG pO2 77 L Potassium Carbon Dioxide 31 H BUN Creatinine 0.3 L Glucose POC Glucose Calcium 8.1 L C-Reactive Protein 11/20/16 11/20/16 11/21/16 11:22 16:45 03:38 WBC RBC Hgb Hct MCV RDW Plt Count Lymph % (Auto) [place] % (Auto) Lymph # [place] # Seg Neutrophils % Seg Neutrophils # POC ABG pH POC ABG pCO2 POC ABG pO2 Potassium Carbon Dioxide BUN Creatinine Glucose POC Glucose 116 H 106 H 125 H Calcium C-Reactive Protein 11/21/16 11/21/16 11/21/16 04:49 04:49 12:04 WBC 14.2 H RBC 3.61 L Hgb 10.9 L Hct 34.0 L MCV RDW 16.1 H Plt Count 464 H Lymph % (Auto) 10.2 L [place] % (Auto) Lymph # [place] # Seg Neutrophils % 82.5 H Seg Neutrophils # 11.8 H POC ABG pH POC ABG pCO2 POC ABG pO2 Potassium Carbon Dioxide BUN Creatinine 0.3 L Glucose 122 H POC Glucose 136 H Calcium C-Reactive Protein 11/21/16 11/21/16 11/22/16 16:45 22:12 02:50 WBC RBC Hgb Hct MCV RDW Plt Count Lymph % (Auto) [place] % (Auto) Lymph # [place] # Seg Neutrophils % Seg Neutrophils # POC ABG pH POC ABG pCO2 POC ABG pO2 Potassium Carbon Dioxide BUN Creatinine Glucose POC Glucose 119 H 111 H 138 H Calcium C-Reactive Protein 11/22/16 05:54 WBC RBC Hgb Hct MCV RDW Plt Count Lymph % (Auto) [place] % (Auto) Lymph # [place] # Seg Neutrophils % Seg Neutrophils # POC ABG pH POC ABG pCO2 POC ABG pO2 Potassium Carbon Dioxide 35 H BUN Creatinine 0.3 L Glucose 150 H POC Glucose Calcium C-Reactive Protein Chest x-ray: image reviewed
[2016-11-22] MEDS: TRANSDERM-SCOP TD SCH (18:08)
--- NOTE | 2016-11-22 18:39 | XRay Report ---
FINAL REPORT EXAM: XR CHEST 1V AP HISTORY: evaluate for recurrent pneumothorax TECHNIQUE: A one view semierect chest x-ray was performed. Comparison: 11/19/2016, 11/13/2016 time there was bilateral lower lobe consolidation and a large right apical bulla,, 11/09/2016 FINDINGS: A tracheostomy is present. There are diffuse bilateral infiltrates and previously identified bilateral lower lobe consolidation. Heart size is normal. Lung volumes are low. Lung apices are clipped. A right chest tube or tube projecting over the patient is present with tip in the region of the mediastinum. The left PICC line has been retracted with the tip now in the region of the left axilla. There is no deep sulcus sign. There is a questionable left apical pleural reflection identified versus overlying line. There is no definite pleural reflection identified. IMPRESSION: Tracheostomy remains. Chest tube projects over the right mid chest with the tip in the region of the mediastinum. No definite deep sulcus sign of pneumothorax. Questionable left apical pleural reflection of tiny less than 5 percent left apical pneumothorax versus line overlying the patient. Lung apices have been clipped. Recommend repeat exam with expiration. There are persistent bilateral lower lobe consolidations/bilateral infiltrates.
[2016-11-23] MEDS: DUONEB *Not for PRN Use IH SCH ×4 (02:06→19:23)
[2016-11-23] MEDS: MERREM 1,000 MG in NACL 0.9% 100 ML IV SCH ×3 (02:59→17:18)
[2016-11-23] MEDS: NOVOLOG SUB-Q SCH ×4 (06:00→17:03)
[2016-11-23 10:14] LABS: ISTAT Base Excess 15; ISTAT HCO3 39.3; ISTAT PCO2 59.1 (35-45); ISTAT PO2 49 (80-105); ISTAT SO2 84; ISTAT TCO2 41
[2016-11-23] MEDS: LOVENOX SUB-Q SCH (11:03)
[2016-11-23] MEDS: COLACE PO SCH ×2 (11:04→23:14)
[2016-11-23] MEDS: THERAGRAN Tab PO SCH (11:04)
[2016-11-23] MEDS: KEPPRA PO SCH ×2 (11:05→23:14)
[2016-11-23] MEDS: PEPCID PO SCH ×2 (11:05→23:14)
--- NOTE | 2016-11-23 11:54 | Progress Note ---
Assessment and Plan - Patient Problems (1) Acute hypoxemic respiratory failure Current Visit: Yes Status: Acute Plan to address problem: - continue bronchodilators and pulmonary toilet - s/p bronchoscopy with suction of secretions re" Atelectasis - continue to wean oxygen for O2 Sats >/= 94% - s/p chest tube removal at bedside - i will consider a strategy of BIPAP qhs while capping trach tube and uncap during the day to see if some positive pressure will slowly recruit more alveoli - repeat CXR in am (2) Atelectasis of both lungs Current Visit: Yes Status: Acute Plan to address problem: - s/p bronchoscopy with suction of airway secretions - reduced Peep to 5 due to pneumothorax though - CXR reviewed but atelectasis appears persisitent - suspect element of pulmonary edema; will get labs +/- trial of diuresis (3) Pneumothorax on right Current Visit: Yes Status: Acute Plan to address problem: - s/p chest tube - reduced Peep to 5 - pull chest tube once off positive pressure ventilation - chest tube to water seal - repeat CXR reviewed post discontinuing chest tube and no obvious recurrence (4) Pneumonia Current Visit: Yes Status: Acute Qualifiers: Pneumonia type: due to unspecified organism Aspiration pneumonia type: A Laterality: bilateral Lung location: lower lobe of lung Qualified Code(s): J18.9 - Pneumonia, unspecified organism Plan to address problem: - growing 2 strains of klebsiella resistant to levaquin - treating with Merem X 5 days - following clinically (5) Encephalopathy acute Current Visit: No Status: Acute Plan to address problem: - improved - weaned of sedation used during bronchoscopy and chest tube placement (6) Sepsis syndrome Current Visit: No Status: Acute Plan to address problem: - improved clinically - treating with merem X 5 days re: sensitivities (7) Discharge planning issues Current Visit: Yes Status: Acute Plan to address problem: - keep on telemetry - back to NH once chest tube out and FiO2 acceptable Subjective Date of service: 11/23/16 Principal diagnosis: Acute on Chronic Hypoxemic Respiratory Failure; Sepsis Syndrome Interval history: Seen and examined at bedside; 24 hour events reviewed; nursing and respiratory care staff consulted; no adverse overnight events reported to me; dislodged tracheostomy tube earlier today and desaturated significantly; replaced but still hypoxemic and FiO2 increased to 100%; no emesis or overt aspiration; chest tube remains in place Objective Vital Signs - 12hr 11/23/16 11/23/16 11/23/16 02:06 02:16 03:10 Temperature 97.8 F Pulse Rate 85 Pulse Rate [ 84 78 Bilateral Throughout] Respiratory 17 Rate Respiratory 18 18 Rate [Bilateral Throughout] Blood Pressure 106/64 O2 Sat by Pulse 89 Oximetry 11/23/16 08:30 Temperature 100.2 F H Pulse Rate 95 H Pulse Rate [ Bilateral Throughout] Respiratory 20 Rate Respiratory Rate [Bilateral Throughout] Blood Pressure 105/61 O2 Sat by Pulse 85 Oximetry Constitutional: no acute distress, other (somnolent; mild cognitive dysfunction) Eyes: non-icteric ENT: oropharynx moist Neck: supple, no lymphadenopathy Effort: mildly labored Ascultation: Bilateral: diminished breath sounds (bases), rales Cardiovascular: regular rate and rhythm Gastrointestinal: normoactive bowel sounds, soft, non-tender, non-distended Integumentary: normal Extremities: no cyanosis, no edema, pink and warm, pulses normal Neurologic: normal mental status, non-focal exam (post-CVA hemiparesis; 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 (12.2-14.9) H 11/13/16 20:49 INR 1.19 (0.87-1.13) H 11/13/16 20:49 D-Dimer 2565.21 ng/mlDDU (0-234) H 11/13/16 20:49 Abnormal lab findings: Abnormal Labs 11/14/16 11/14/16 11/14/16 00:49 05:49 10:30 WBC RBC Hgb Hct MCV RDW Plt Count Lymph % (Auto) [place] % (Auto) Lymph # [place] # Seg Neutrophils % Seg Neutrophils # POC ABG pH 7.455 H POC ABG pCO2 54.2 H 46.9 H POC ABG pO2 109 H Potassium Carbon Dioxide BUN Creatinine Glucose POC Glucose Calcium C-Reactive Protein 23.10 H 11/14/16 11/14/16 11/15/16 13:20 23:26 04:13 WBC 16.1 H RBC 3.08 L Hgb 9.4 L Hct 28.4 L D MCV RDW 15.8 H Plt Count Lymph % (Auto) 6.1 L [place] % (Auto) 8.5 H Lymph # 1.0 L [place] # 1.4 H Seg Neutrophils % 84.7 H Seg Neutrophils # 13.6 H POC ABG pH 7.454 H POC ABG pCO2 POC ABG pO2 69 L Potassium Carbon Dioxide BUN Creatinine Glucose POC Glucose 118 H Calcium C-Reactive Protein 11/15/16 11/15/16 11/15/16 04:13 04:52 23:40 WBC RBC Hgb Hct MCV RDW Plt Count Lymph % (Auto) [place] % (Auto) Lymph # [place] # Seg Neutrophils % Seg Neutrophils # POC ABG pH 7.488 H POC ABG pCO2 45.4 H POC ABG pO2 72 L Potassium 3.4 L D Carbon Dioxide 31 H BUN Creatinine 0.4 L Glucose 103 H POC Glucose 106 H Calcium C-Reactive Protein 11/16/16 11/16/16 11/16/16 04:57 04:57 10:51 WBC RBC 3.00 L Hgb 9.2 L Hct 28.4 L MCV 95 H RDW 16.0 H Plt Count Lymph % (Auto) 10.6 L [place] % (Auto) 8.7 H Lymph # 1.1 L [place] # 0.9 H Seg Neutrophils % 78.2 H Seg Neutrophils # 8.2 H POC ABG pH POC ABG pCO2 48.7 H POC ABG pO2 70 L Potassium 3.4 L Carbon Dioxide BUN Creatinine 0.4 L Glucose POC Glucose Calcium C-Reactive Protein 11/16/16 11/16/16 11/17/16 18:00 23:53 03:33 WBC RBC 3.06 L Hgb 9.4 L Hct 28.6 L MCV RDW 16.2 H Plt Count Lymph % (Auto) 12.3 L [place] % (Auto) 9.6 H Lymph # 1.1 L [place] # Seg Neutrophils % 74.2 H Seg Neutrophils # POC ABG pH POC ABG pCO2 POC ABG pO2 Potassium Carbon Dioxide BUN Creatinine Glucose POC Glucose 143 H 149 H Calcium C-Reactive Protein 11/17/16 11/17/16 11/17/16 03:33 03:39 04:59 WBC RBC Hgb Hct MCV RDW Plt Count Lymph % (Auto) [place] % (Auto) Lymph # [place] # Seg Neutrophils % Seg Neutrophils # POC ABG pH POC ABG pCO2 50.6 H POC ABG pO2 Potassium 3.5 L Carbon Dioxide 31 H BUN Creatinine 0.3 L Glucose 125 H POC Glucose 140 H Calcium C-Reactive Protein 11/17/16 11/17/16 11/17/16 11:26 16:08 17:38 WBC RBC Hgb Hct MCV RDW Plt Count Lymph % (Auto) [place] % (Auto) Lymph # [place] # Seg Neutrophils % Seg Neutrophils # POC ABG pH 7.460 H POC ABG pCO2 51.2 H POC ABG pO2 115 H Potassium Carbon Dioxide BUN Creatinine Glucose POC Glucose 142 H 143 H Calcium C-Reactive Protein 11/17/16 11/18/16 11/18/16 23:42 03:34 04:10 WBC RBC Hgb Hct MCV RDW Plt Count Lymph % (Auto) [place] % (Auto) Lymph # [place] # Seg Neutrophils % Seg Neutrophils # POC ABG pH POC ABG pCO2 48.4 H POC ABG pO2 72 L Potassium Carbon Dioxide BUN 8 L Creatinine 0.3 L Glucose POC Glucose 121 H Calcium 8.1 L C-Reactive Protein 11/18/16 11/18/16 11/19/16 04:10 12:21 04:01 WBC RBC 2.89 L Hgb 8.8 L Hct 27.1 L MCV RDW 15.9 H Plt Count Lymph % (Auto) [place] % (Auto) 8.1 H Lymph # 1.1 L [place] # Seg Neutrophils % 74.4 H Seg Neutrophils # POC ABG pH POC ABG pCO2 47.5 H POC ABG pO2 Potassium Carbon Dioxide BUN Creatinine Glucose POC Glucose 111 H Calcium C-Reactive Protein 11/19/16 11/19/16 11/20/16 12:00 23:39 05:07 WBC RBC Hgb Hct MCV RDW Plt Count Lymph % (Auto) [place] % (Auto) Lymph # [place] # Seg Neutrophils % Seg Neutrophils # POC ABG pH POC ABG pCO2 POC ABG pO2 Potassium Carbon Dioxide BUN Creatinine Glucose POC Glucose 118 H 127 H 134 H Calcium C-Reactive Protein 11/20/16 11/20/16 11/20/16 08:41 08:41 08:56 WBC RBC 3.37 L Hgb 10.3 L Hct 31.2 L MCV RDW 15.9 H Plt Count Lymph % (Auto) [place] % (Auto) 7.4 H Lymph # [place] # Seg Neutrophils % Seg Neutrophils # POC ABG pH POC ABG pCO2 51.9 H POC ABG pO2 77 L Potassium Carbon Dioxide 31 H BUN Creatinine 0.3 L Glucose POC Glucose Calcium 8.1 L C-Reactive Protein 11/20/16 11/20/16 11/21/16 11:22 16:45 03:38 WBC RBC Hgb Hct MCV RDW Plt Count Lymph % (Auto) [place] % (Auto) Lymph # [place] # Seg Neutrophils % Seg Neutrophils # POC ABG pH POC ABG pCO2 POC ABG pO2 Potassium Carbon Dioxide BUN Creatinine Glucose POC Glucose 116 H 106 H 125 H Calcium C-Reactive Protein 11/21/16 11/21/16 11/21/16 04:49 04:49 12:04 WBC 14.2 H RBC 3.61 L Hgb 10.9 L Hct 34.0 L MCV RDW 16.1 H Plt Count 464 H Lymph % (Auto) 10.2 L [place] % (Auto) Lymph # [place] # Seg Neutrophils % 82.5 H Seg Neutrophils # 11.8 H POC ABG pH POC ABG pCO2 POC ABG pO2 Potassium Carbon Dioxide BUN Creatinine 0.3 L Glucose 122 H POC Glucose 136 H Calcium C-Reactive Protein 11/21/16 11/21/16 11/22/16 16:45 22:12 02:50 WBC RBC Hgb Hct MCV RDW Plt Count Lymph % (Auto) [place] % (Auto) Lymph # [place] # Seg Neutrophils % Seg Neutrophils # POC ABG pH POC ABG pCO2 POC ABG pO2 Potassium Carbon Dioxide BUN Creatinine Glucose POC Glucose 119 H 111 H 138 H Calcium C-Reactive Protein 11/22/16 11/22/16 11/22/16 05:54 17:04 21:32 WBC RBC Hgb Hct MCV RDW Plt Count Lymph % (Auto) [place] % (Auto) Lymph # [place] # Seg Neutrophils % Seg Neutrophils # POC ABG pH POC ABG pCO2 POC ABG pO2 Potassium Carbon Dioxide 35 H BUN Creatinine 0.3 L Glucose 150 H POC Glucose 112 H 116 H Calcium C-Reactive Protein 11/23/16 11/23/16 11/23/16 04:56 09:11 11:31 WBC RBC Hgb Hct MCV RDW Plt Count Lymph % (Auto) [place] % (Auto) Lymph # [place] # Seg Neutrophils % Seg Neutrophils # POC ABG pH POC ABG pCO2 59.1 H POC ABG pO2 49 L Potassium Carbon Dioxide BUN Creatinine Glucose POC Glucose 135 H 138 H Calcium C-Reactive Protein
--- NOTE | 2016-11-23 12:34 | XRay Report ---
CHEST 1 VIEW INDICATION: Pneumothorax. COMPARISON: 5:09 PM yesterday. FINDINGS: Portable, frontal chest radiograph, 12:13 PM, 11/23/2016 reveals stable cardiomediastinal silhouette, supporting devices, appearance of the lungs and osseous structures, providing for the difference in technique. No definite acute left apical pneumothorax reflection now identified. CONCLUSION: No significant interval change in right more than left lung infiltrates, left basilar opacity obscuring the costophrenic angle and left upper extremity PICC tip terminating in the left axilla, amongst others. Thank you for the opportunity to participate in this patient's care.
[2016-11-23] MEDS: TYLENOL PO PRN (13:30)
[2016-11-23] MEDS ORDERED: XYLOCAINE 2% INFILTRATI ONE (13:46)
--- NOTE | 2016-11-23 14:25 | Progress Note ---
Assessment and Plan - Patient Problems (1) Pneumonia Current Visit: Yes Status: Acute Qualifiers: Pneumonia type: due to unspecified organism Aspiration pneumonia type: A Laterality: bilateral Lung location: lower lobe of lung Qualified Code(s): J18.9 - Pneumonia, unspecified organism Plan to address problem: 1. If fever persists, recommend repeat bronchial fluid/ sputum culture and broaden antibiotic coverage with the addition of Vancomycin. 2. Continue same regimen for now. Subjective Date of service: 11/23/16 Principal diagnosis: Acute on Chronic Hypoxemic Respiratory Failure; Sepsis Syndrome Interval history: Febrile today to > 101 deg F. Also noted to be short of breath intermittently and with movement. Chest tube removed. Objective - Constitutional Vitals: Vital Signs Temp Pulse Resp BP Pulse Ox 101.3 F H 105 H 24 115/70 92 11/23/16 12:35 11/23/16 12:35 11/23/16 12:35 11/23/16 12:35 11/23/16 12:35 Temperature -Last 24 Hours Temperature 101.3 F Temperature 100.2 F Temperature 97.8 F Temperature 98.0 F Temperature 97.9 F Temperature 100.0 F General appearance: Present: no acute distress, cachectic - Respiratory Respiratory effort: other (tracheostomy T-piece with no secretions noted) Respiratory: bilateral: rhonchi (mild), negative: other (right chest tube removed) - Cardiovascular Rhythm: regular Heart Sounds: Present: S1 & S2 Extremities: No edema - Gastrointestinal General gastrointestinal: Present: soft, non-distended, other ((+) PEG in place) - Genitourinary Male genitourinary: normal (Smith with yellow urine) - Integumentary Integumentary: clear, no rash - Labs CBC & Chem 7: 11/21/16 04:49 11/22/16 05:54 Labs: Abnormal lab results 11/22/16 11/22/16 11/23/16 Range/Units 17:04 21:32 04:56 POC ABG pCO2 (35-45) POC ABG pO2 (80-105) POC Glucose 112 H 116 H 135 H (70-105) 11/23/16 11/23/16 Range/Units 09:11 11:31 POC ABG pCO2 59.1 H (35-45) POC ABG pO2 49 L (80-105) POC Glucose 138 H (70-105) Microbiology 11/13/16 21:31 Peripheral/Venous Blood Culture - Final NO GROWTH AFTER 5 DAYS 11/13/16 20:49 Peripheral/Venous Blood Culture - Final NO GROWTH AFTER 5 DAYS 11/15/16 13:20 Bronchial Washings - Right Middle Lobe Respiratory Culture - Final Diphtheroids 11/14/16 12:25 Tracheal Aspirate Sputum Culture - Final Klebsiella Oxytoca Klebsiella Oxytoca#2 11/13/16 21:31 Urine,Catheterized - Indwelling Catheter Urine Culture - Final - Imaging and cardiology Chest x-ray: report reviewed (no significant change in R>L infiltrates)
--- NOTE | 2016-11-23 14:53 | Progress Note ---
Assessment and Plan Assessment and plan: --Acute on chronic hypoxemic respiratory failure/tracheostomy; Nebulizers, IV steroids , inhalation steroids,cont meropenem 10-14 days, --Bilateral pneumonia/atelectasis s/p bronchoscopy, suctioning secretions, supportive care Continue meropenem, pulmonary following --Right pneumothorax: s/p right chest tube placement with drainage --Febrile illness /Sepsis secondary to bilateral pneumonia; on antibiotics ID following --Type 2 diabetes mellitus; Accu-Chek sliding scale coverage and ADA diet and insulin --History of seizure disorder Seizure precautions, continue antiepileptic medications --DVT prophylaxis; Lovenox -- Peg and Trach. Care --CODE STATUS full code closely monitor the patient and adjust management as needed History Interval history: Patient seen and evaluated Eric temperature MAXIMUM [id number] No new events reported by the nursing staff Alert and awake, in mild distress Hospitalist Physical - Constitutional Vitals: Temp Pulse Resp BP Pulse Ox 101.3 F H 94 H 20 115/70 92 11/23/16 12:35 11/23/16 14:16 11/23/16 14:16 11/23/16 12:35 11/23/16 12:35 General appearance: Present: no acute distress, well-nourished - EENT Eyes: Present: PERRL, EOM intact - Neck Neck: Present: supple, other (tracheostomy) - Respiratory Respiratory effort: normal Respiratory: bilateral: diminished, negative: rales, rhonchi, wheezing - Cardiovascular Rhythm: regular Heart Sounds: Present: S1 & S2 - Extremities Extremities: no ischemia, No edema - Abdominal General gastrointestinal: soft, non-tender, non-distended, normal bowel sounds, other (PEG tube in place) - Integumentary Integumentary: Present: clear, warm - Psychiatric Psychiatric: other (noncommunicative) - Neurologic Neurologic: other (noncommunicative) Results - Labs CBC & Chem 7: 11/21/16 04:49 11/22/16 05:54 Labs: Laboratory Last Values WBC 14.2 K/mm3 (4.5-11.0) H 11/21/16 04:49 RBC 3.61 M/mm3 (3.65-5.03) L 11/21/16 04:49 Hgb 10.9 gm/dl (11.8-15.2) L 11/21/16 04:49 Hct 34.0 % (35.5-45.6) L 11/21/16 04:49 MCV 94 fl (84-94) 11/21/16 04:49 MCH 30 pg (28-32) 11/21/16 04:49 MCHC 32 % (32-34) 11/21/16 04:49 RDW 16.1 % (13.2-15.2) H 11/21/16 04:49 Plt Count 464 K/mm3 (140-440) H 11/21/16 04:49 Lymph % (Auto) 10.2 % (13.4-35.0) L 11/21/16 04:49 [place] % (Auto) 4.8 % (0.0-7.3) 11/21/16 04:49 Eos % (Auto) 2.1 % (0.0-4.3) 11/21/16 04:49 Baso % (Auto) 0.4 % (0.0-1.8) 11/21/16 04:49 Lymph # 1.4 K/mm3 (1.2-5.4) 11/21/16 04:49 [place] # 0.7 K/mm3 (0.0-0.8) 11/21/16 04:49 Eos # 0.3 K/mm3 (0.0-0.4) 11/21/16 04:49 Baso # 0.1 K/mm3 (0.0-0.1) 11/21/16 04:49 Seg Neutrophils % 82.5 % (40.0-70.0) H 11/21/16 04:49 Seg Neutrophils # 11.8 K/mm3 (1.8-7.7) H 11/21/16 04:49 PT 15.7 Sec. (12.2-14.9) H 11/13/16 20:49 INR 1.19 (0.87-1.13) H 11/13/16 20:49 D-Dimer 2565.21 ng/mlDDU (0-234) H 11/13/16 20:49 POC ABG pH 7.430 (7.35-7.45) 11/23/16 09:11 POC ABG pCO2 59.1 (35-45) H 11/23/16 09:11 POC ABG pO2 49 (80-105) L 11/23/16 09:11 POC ABG HCO3 39.3 11/23/16 09:11 POC ABG Total CO2 41 11/23/16 09:11 POC ABG O2 Sat 84 11/23/16 09:11 POC ABG Base Excess 15 11/23/16 09:11 VBG pH 7.319 (7.320-7.420) L 11/13/16 20:49 FiO2 60 % 11/23/16 09:11 Sodium 145 mmol/L (137-145) 11/22/16 05:54 Potassium 4.4 mmol/L (3.6-5.0) 11/22/16 05:54 Chloride 100.5 mmol/L (98-107) 11/22/16 05:54 Carbon Dioxide 35 mmol/L (22-30) H 11/22/16 05:54 Anion Gap 14 mmol/L 11/22/16 05:54 BUN 17 mg/dL (9-20) 11/22/16 05:54 Creatinine 0.3 mg/dL (0.8-1.5) L 11/22/16 05:54 Estimated GFR > 60 ml/min 11/22/16 05:54 BUN/Creatinine Ratio 56.66 % 11/22/16 05:54 Glucose 150 mg/dL (75-100) H 11/22/16 05:54 POC Glucose 138 (70-105) H 11/23/16 11:31 Lactic Acid 0.70 mmol/L (0.7-2.0) 11/17/16 17:25 Calcium 9.1 mg/dL (8.4-10.2) 11/22/16 05:54 Magnesium 1.70 mg/dL (1.7-2.3) 11/16/16 04:57 Total Bilirubin 0.30 mg/dL (0.1-1.2) 11/13/16 20:49 AST 27 units/L (5-40) 11/13/16 20:49 ALT 15 units/L (7-56) 11/13/16 20:49 Alkaline Phosphatase 103 units/L (35-129) 11/13/16 20:49 C-Reactive Protein 23.10 mg/dL (0.00-1.30) H 11/14/16 10:30 Total Protein 7.7 g/dL (6.3-8.2) 11/13/16 20:49 Albumin 2.7 g/dL (3.9-5) L 11/13/16 20:49 Albumin/Globulin Ratio 0.5 % 11/13/16 20:49 Urine Color Yellow (Yellow) 11/13/16 21:40 Urine Turbidity Clear (Clear) 11/13/16 21:40 Urine pH 7.0 (5.0-7.0) 11/13/16 21:40 Ur Specific [place] 1.008 (1.003-1.030) 11/13/16 21:40 Urine Protein <15 mg/dl mg/dL (Negative) 11/13/16 21:40 Urine Glucose (UA) Neg mg/dL (Negative) 11/13/16 21:40 Urine Ketones Neg mg/dL (Negative) 11/13/16 21:40 Urine Blood Lg (Negative) 11/13/16 21:40 Urine Nitrite Neg (Negative) 11/13/16 21:40 Urine Bilirubin Neg (Negative) 11/13/16 21:40 Urine Urobilinogen < 2.0 mg/dL (<2.0) 11/13/16 21:40 Ur Leukocyte Esterase Lg (Negative) 11/13/16 21:40 Urine WBC (Auto) 4.0 /HPF (0.0-6.0) 11/13/16 21:40 Urine RBC (Auto) 3.0 /HPF (0.0-6.0) 11/13/16 21:40 Urine Bacteria (Auto) 1+ /HPF (Negative) 11/13/16 21:40 Urine Mucus Few /HPF 11/13/16 21:40 Blood Type O POSITIVE 11/14/16 03:00 FREDDIE Antibody Screen Negative 11/14/16 03:00
[2016-11-24] MEDS: NOVOLOG SUB-Q SCH ×4 (00:05→18:23)
[2016-11-24] MEDS: DUONEB *Not for PRN Use IH SCH ×4 (01:45→19:48)
[2016-11-24] MEDS: MERREM 1,000 MG in NACL 0.9% 100 ML IV SCH ×3 (02:40→18:11)
[2016-11-24] MEDS: TYLENOL PO PRN (04:47)
[2016-11-24 05:05] LABS: ISTAT Base Excess 16; ISTAT HCO3 40.7; ISTAT PCO2 63.3 (35-45); ISTAT PH 7.417 (7.35-7.45); ISTAT PO2 82 (80-105); ISTAT SO2 96; ISTAT TCO2 43
--- NOTE | 2016-11-24 09:38 | XRay Report ---
AP CHEST 11/24/16 CLINICAL: Recurrent pneumothorax. COMPARISON:11/23/16 FINDINGS: The tracheostomy tube is in satisfactory position. The heart is normal size. Central vascular congestion and in the status of the pulmonary vessels. Continue multilobar reticulonodular interstitial opacities with slight improvement. No pneumothorax. IMPRESSION: Slight improvement.
[2016-11-24] MEDS: LOVENOX SUB-Q SCH (11:18)
[2016-11-24] MEDS: PEPCID PO SCH ×2 (11:19→22:02)
[2016-11-24] MEDS: THERAGRAN Tab PO SCH (11:20)
[2016-11-24] MEDS: KEPPRA PO SCH ×2 (11:20→22:02)
[2016-11-24] MEDS: COLACE PO SCH ×2 (11:20→22:02)
--- NOTE | 2016-11-24 12:13 | Progress Note ---
Assessment and Plan - Patient Problems (1) Acute hypoxemic respiratory failure Current Visit: Yes Status: Acute Plan to address problem: - continue bronchodilators and pulmonary toilet - s/p bronchoscopy with suction of secretions re" Atelectasis - continue to wean oxygen for O2 Sats >/= 94% - s/p chest tube removal at bedside - capped trach tube and deployed BIPAP with acceptable results - will schedule BIPAP qhs to try and recruit atelectatic lung while placing on t -piece during the day (2) Atelectasis of both lungs Current Visit: Yes Status: Acute Plan to address problem: - s/p bronchoscopy with suction of airway secretions - CXR reviewed but atelectasis appears persisitent - continue BIPA qhs (3) Pneumothorax on right Current Visit: Yes Status: Acute Plan to address problem: - s/p chest tube - reduced Peep to 5 - pull chest tube once off positive pressure ventilation - chest tube to water seal - repeat CXR reviewed post discontinuing chest tube and no obvious recurrence (4) Pneumonia Current Visit: Yes Status: Acute Qualifiers: Pneumonia type: due to unspecified organism Aspiration pneumonia type: A Laterality: bilateral Lung location: lower lobe of lung Qualified Code(s): J18.9 - Pneumonia, unspecified organism Plan to address problem: - growing 2 strains of klebsiella resistant to levaquin - treating with Merem X 5 days - following clinically (5) Encephalopathy acute Current Visit: No Status: Acute Plan to address problem: - improved - weaned of sedation used during bronchoscopy and chest tube placement (6) Sepsis syndrome Current Visit: No Status: Acute Plan to address problem: - improved clinically - s/p merem X 5 days re: sensitivities (7) Discharge planning issues Current Visit: Yes Status: Acute Plan to address problem: - keep on telemetry - back to [place] once chest tube out and FiO2 acceptable Subjective Date of service: 11/24/16 Principal diagnosis: Acute on Chronic Hypoxemic Respiratory Failure; Sepsis Syndrome Interval history: Seen and examined at bedside; 24 hour events reviewed; nursing and respiratory care staff consulted; no adverse overnight events reported to me; resting peacefully in bed; still requiring high FiO2's; CXR without recurrent pneumothorax; no emesis or overt aspiration and no gross bleeding Objective Vital Signs - 12hr 11/24/16 11/24/16 11/24/16 00:41 00:42 01:45 Temperature Pulse Rate Pulse Rate [ 77 Bilateral Throughout] Respiratory Rate Respiratory 20 Rate [Bilateral Throughout] Blood Pressure O2 Sat by Pulse 93 Oximetry O2 Sat by Pulse 93 Oximetry [ Assessment] 11/24/16 11/24/16 11/24/16 01:55 04:15 04:45 Temperature 100.3 F H 100.3 F H Pulse Rate 102 H 102 H Pulse Rate [ 73 Bilateral Throughout] Respiratory 18 18 Rate Respiratory 20 Rate [Bilateral Throughout] Blood Pressure 111/68 111/68 O2 Sat by Pulse 95 95 Oximetry O2 Sat by Pulse Oximetry [ Assessment] 11/24/16 11/24/16 11/24/16 06:25 08:35 09:00 Temperature 99.3 F 97.7 F Pulse Rate 99 H 73 Pulse Rate [ Bilateral Throughout] Respiratory 18 20 Rate Respiratory Rate [Bilateral Throughout] Blood Pressure 111/68 130/74 O2 Sat by Pulse 96 94 Oximetry O2 Sat by Pulse 93 Oximetry [ Assessment] 11/24/16 11/24/16 09:11 09:21 Temperature Pulse Rate Pulse Rate [ 75 80 Bilateral Throughout] Respiratory Rate Respiratory 20 20 Rate [Bilateral Throughout] Blood Pressure O2 Sat by Pulse 93 Oximetry O2 Sat by Pulse Oximetry [ Assessment] Constitutional: no acute distress, other (somnolent; mild cognitive dysfunction) Eyes: non-icteric ENT: oropharynx moist Neck: supple, no lymphadenopathy Effort: mildly labored Ascultation: Bilateral: diminished breath sounds (bases), rales Cardiovascular: regular rate and rhythm Gastrointestinal: normoactive bowel sounds, soft, non-tender, non-distended Integumentary: normal Extremities: no cyanosis, no edema, pink and warm, pulses normal Neurologic: normal mental status, non-focal exam (post-CVA hemiparesis; 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 (12.2-14.9) H 11/13/16 20:49 INR 1.19 (0.87-1.13) H 11/13/16 20:49 D-Dimer 2565.21 ng/mlDDU (0-234) H 11/13/16 20:49 Abnormal lab findings: Abnormal Labs 11/14/16 11/14/16 11/14/16 00:49 05:49 10:30 WBC RBC Hgb Hct MCV RDW Plt Count Lymph % (Auto) [place] % (Auto) Lymph # [place] # Seg Neutrophils % Seg Neutrophils # POC ABG pH 7.455 H POC ABG pCO2 54.2 H 46.9 H POC ABG pO2 109 H Potassium Carbon Dioxide BUN Creatinine Glucose POC Glucose Calcium C-Reactive Protein 23.10 H 11/14/16 11/14/16 11/15/16 13:20 23:26 04:13 WBC 16.1 H RBC 3.08 L Hgb 9.4 L Hct 28.4 L D MCV RDW 15.8 H Plt Count Lymph % (Auto) 6.1 L [place] % (Auto) 8.5 H Lymph # 1.0 L [place] # 1.4 H Seg Neutrophils % 84.7 H Seg Neutrophils # 13.6 H POC ABG pH 7.454 H POC ABG pCO2 POC ABG pO2 69 L Potassium Carbon Dioxide BUN Creatinine Glucose POC Glucose 118 H Calcium C-Reactive Protein 11/15/16 11/15/16 11/15/16 04:13 04:52 23:40 WBC RBC Hgb Hct MCV RDW Plt Count Lymph % (Auto) [place] % (Auto) Lymph # [place] # Seg Neutrophils % Seg Neutrophils # POC ABG pH 7.488 H POC ABG pCO2 45.4 H POC ABG pO2 72 L Potassium 3.4 L D Carbon Dioxide 31 H BUN Creatinine 0.4 L Glucose 103 H POC Glucose 106 H Calcium C-Reactive Protein 11/16/16 11/16/16 11/16/16 04:57 04:57 10:51 WBC RBC 3.00 L Hgb 9.2 L Hct 28.4 L MCV 95 H RDW 16.0 H Plt Count Lymph % (Auto) 10.6 L [place] % (Auto) 8.7 H Lymph # 1.1 L [place] # 0.9 H Seg Neutrophils % 78.2 H Seg Neutrophils # 8.2 H POC ABG pH POC ABG pCO2 48.7 H POC ABG pO2 70 L Potassium 3.4 L Carbon Dioxide BUN Creatinine 0.4 L Glucose POC Glucose Calcium C-Reactive Protein 11/16/16 11/16/16 11/17/16 18:00 23:53 03:33 WBC RBC 3.06 L Hgb 9.4 L Hct 28.6 L MCV RDW 16.2 H Plt Count Lymph % (Auto) 12.3 L [place] % (Auto) 9.6 H Lymph # 1.1 L [place] # Seg Neutrophils % 74.2 H Seg Neutrophils # POC ABG pH POC ABG pCO2 POC ABG pO2 Potassium Carbon Dioxide BUN Creatinine Glucose POC Glucose 143 H 149 H Calcium C-Reactive Protein 11/17/16 11/17/16 11/17/16 03:33 03:39 04:59 WBC RBC Hgb Hct MCV RDW Plt Count Lymph % (Auto) [place] % (Auto) Lymph # [place] # Seg Neutrophils % Seg Neutrophils # POC ABG pH POC ABG pCO2 50.6 H POC ABG pO2 Potassium 3.5 L Carbon Dioxide 31 H BUN Creatinine 0.3 L Glucose 125 H POC Glucose 140 H Calcium C-Reactive Protein 11/17/16 11/17/16 11/17/16 11:26 16:08 17:38 WBC RBC Hgb Hct MCV RDW Plt Count Lymph % (Auto) [place] % (Auto) Lymph # [place] # Seg Neutrophils % Seg Neutrophils # POC ABG pH 7.460 H POC ABG pCO2 51.2 H POC ABG pO2 115 H Potassium Carbon Dioxide BUN Creatinine Glucose POC Glucose 142 H 143 H Calcium C-Reactive Protein 11/17/16 11/18/16 11/18/16 23:42 03:34 04:10 WBC RBC Hgb Hct MCV RDW Plt Count Lymph % (Auto) [place] % (Auto) Lymph # [place] # Seg Neutrophils % Seg Neutrophils # POC ABG pH POC ABG pCO2 48.4 H POC ABG pO2 72 L Potassium Carbon Dioxide BUN 8 L Creatinine 0.3 L Glucose POC Glucose 121 H Calcium 8.1 L C-Reactive Protein 11/18/16 11/18/16 11/19/16 04:10 12:21 04:01 WBC RBC 2.89 L Hgb 8.8 L Hct 27.1 L MCV RDW 15.9 H Plt Count Lymph % (Auto) [place] % (Auto) 8.1 H Lymph # 1.1 L [place] # Seg Neutrophils % 74.4 H Seg Neutrophils # POC ABG pH POC ABG pCO2 47.5 H POC ABG pO2 Potassium Carbon Dioxide BUN Creatinine Glucose POC Glucose 111 H Calcium C-Reactive Protein 11/19/16 11/19/16 11/20/16 12:00 23:39 05:07 WBC RBC Hgb Hct MCV RDW Plt Count Lymph % (Auto) [place] % (Auto) Lymph # [place] # Seg Neutrophils % Seg Neutrophils # POC ABG pH POC ABG pCO2 POC ABG pO2 Potassium Carbon Dioxide BUN Creatinine Glucose POC Glucose 118 H 127 H 134 H Calcium C-Reactive Protein 11/20/16 11/20/16 11/20/16 08:41 08:41 08:56 WBC RBC 3.37 L Hgb 10.3 L Hct 31.2 L MCV RDW 15.9 H Plt Count Lymph % (Auto) [place] % (Auto) 7.4 H Lymph # [place] # Seg Neutrophils % Seg Neutrophils # POC ABG pH POC ABG pCO2 51.9 H POC ABG pO2 77 L Potassium Carbon Dioxide 31 H BUN Creatinine 0.3 L Glucose POC Glucose Calcium 8.1 L C-Reactive Protein 11/20/16 11/20/16 11/21/16 11:22 16:45 03:38 WBC RBC Hgb Hct MCV RDW Plt Count Lymph % (Auto) [place] % (Auto) Lymph # [place] # Seg Neutrophils % Seg Neutrophils # POC ABG pH POC ABG pCO2 POC ABG pO2 Potassium Carbon Dioxide BUN Creatinine Glucose POC Glucose 116 H 106 H 125 H Calcium C-Reactive Protein 11/21/16 11/21/16 11/21/16 04:49 04:49 12:04 WBC 14.2 H RBC 3.61 L Hgb 10.9 L Hct 34.0 L MCV RDW 16.1 H Plt Count 464 H Lymph % (Auto) 10.2 L [place] % (Auto) Lymph # [place] # Seg Neutrophils % 82.5 H Seg Neutrophils # 11.8 H POC ABG pH POC ABG pCO2 POC ABG pO2 Potassium Carbon Dioxide BUN Creatinine 0.3 L Glucose 122 H POC Glucose 136 H Calcium C-Reactive Protein 11/21/16 11/21/16 11/22/16 16:45 22:12 02:50 WBC RBC Hgb Hct MCV RDW Plt Count Lymph % (Auto) [place] % (Auto) Lymph # [place] # Seg Neutrophils % Seg Neutrophils # POC ABG pH POC ABG pCO2 POC ABG pO2 Potassium Carbon Dioxide BUN Creatinine Glucose POC Glucose 119 H 111 H 138 H Calcium C-Reactive Protein 11/22/16 11/22/16 11/22/16 05:54 17:04 21:32 WBC RBC Hgb Hct MCV RDW Plt Count Lymph % (Auto) [place] % (Auto) Lymph # [place] # Seg Neutrophils % Seg Neutrophils # POC ABG pH POC ABG pCO2 POC ABG pO2 Potassium Carbon Dioxide 35 H BUN Creatinine 0.3 L Glucose 150 H POC Glucose 112 H 116 H Calcium C-Reactive Protein 11/23/16 11/23/16 11/23/16 04:56 09:11 11:31 WBC RBC Hgb Hct MCV RDW Plt Count Lymph % (Auto) [place] % (Auto) Lymph # [place] # Seg Neutrophils % Seg Neutrophils # POC ABG pH POC ABG pCO2 59.1 H POC ABG pO2 49 L Potassium Carbon Dioxide BUN Creatinine Glucose POC Glucose 135 H 138 H Calcium C-Reactive Protein 11/23/16 11/23/16 11/24/16 16:13 23:55 04:49 WBC RBC Hgb Hct MCV RDW Plt Count Lymph % (Auto) [place] % (Auto) Lymph # [place] # Seg Neutrophils % Seg Neutrophils # POC ABG pH POC ABG pCO2 63.3 H POC ABG pO2 Potassium Carbon Dioxide BUN Creatinine Glucose POC Glucose 128 H 119 H Calcium C-Reactive Protein 11/24/16 06:39 WBC RBC Hgb Hct MCV RDW Plt Count Lymph % (Auto) [place] % (Auto) Lymph # [place] # Seg Neutrophils % Seg Neutrophils # POC ABG pH POC ABG pCO2 POC ABG pO2 Potassium Carbon Dioxide BUN Creatinine Glucose POC Glucose 106 H Calcium C-Reactive Protein
--- NOTE | 2016-11-24 12:38 | Progress Note ---
Assessment and Plan Assessment and plan: --Acute on chronic hypoxemic respiratory failure/tracheostomy; Nebulizers, IV steroids , inhalation steroids,cont meropenem 10-14 days, --Bilateral pneumonia/atelectasis s/p bronchoscopy, suctioning secretions, supportive care Continue meropenem, pulmonary following --Right pneumothorax: s/p right chest tube placement with drainage --Febrile illness /Sepsis secondary to bilateral pneumonia; on antibiotics ID following --Type 2 diabetes mellitus; Accu-Chek sliding scale coverage and ADA diet and insulin --History of seizure disorder Seizure precautions, continue antiepileptic medications --DVT prophylaxis; Lovenox -- Peg and Trach. Care --CODE STATUS full code closely monitor the patient and adjust management as needed Hospitalist Physical - Constitutional Vitals: Temp Pulse Resp BP Pulse Ox 97.7 F 80 20 130/74 93 11/24/16 08:35 11/24/16 09:21 11/24/16 09:21 11/24/16 08:35 11/24/16 09:11 General appearance: Present: no acute distress, cachectic - EENT Eyes: Present: PERRL, EOM intact - Neck Neck: Present: supple, normal ROM - Respiratory Respiratory effort: normal Respiratory: bilateral: diminished, rhonchi, negative: rales, wheezing - Cardiovascular Rhythm: regular Heart Sounds: Present: S1 & S2 - Extremities Extremities: no ischemia, No edema - Abdominal General gastrointestinal: soft, non-tender, normal bowel sounds, other (PEG in place) - Integumentary Integumentary: Present: clear, warm - Psychiatric Psychiatric: other (non communicative) - Neurologic Neurologic: other (non communicative) Results - Labs CBC & Chem 7: 11/24/16 14:52 11/24/16 14:52 Labs: Laboratory Last Values WBC 14.2 K/mm3 (4.5-11.0) H 11/21/16 04:49 RBC 3.61 M/mm3 (3.65-5.03) L 11/21/16 04:49 Hgb 10.9 gm/dl (11.8-15.2) L 11/21/16 04:49 Hct 34.0 % (35.5-45.6) L 11/21/16 04:49 MCV 94 fl (84-94) 11/21/16 04:49 MCH 30 pg (28-32) 11/21/16 04:49 MCHC 32 % (32-34) 11/21/16 04:49 RDW 16.1 % (13.2-15.2) H 11/21/16 04:49 Plt Count 464 K/mm3 (140-440) H 11/21/16 04:49 Lymph % (Auto) 10.2 % (13.4-35.0) L 11/21/16 04:49 [place] % (Auto) 4.8 % (0.0-7.3) 11/21/16 04:49 Eos % (Auto) 2.1 % (0.0-4.3) 11/21/16 04:49 Baso % (Auto) 0.4 % (0.0-1.8) 11/21/16 04:49 Lymph # 1.4 K/mm3 (1.2-5.4) 11/21/16 04:49 [place] # 0.7 K/mm3 (0.0-0.8) 11/21/16 04:49 Eos # 0.3 K/mm3 (0.0-0.4) 11/21/16 04:49 Baso # 0.1 K/mm3 (0.0-0.1) 11/21/16 04:49 Seg Neutrophils % 82.5 % (40.0-70.0) H 11/21/16 04:49 Seg Neutrophils # 11.8 K/mm3 (1.8-7.7) H 11/21/16 04:49 PT 15.7 Sec. (12.2-14.9) H 11/13/16 20:49 INR 1.19 (0.87-1.13) H 11/13/16 20:49 D-Dimer 2565.21 ng/mlDDU (0-234) H 11/13/16 20:49 POC ABG pH 7.417 (7.35-7.45) 11/24/16 04:49 POC ABG pCO2 63.3 (35-45) H 11/24/16 04:49 POC ABG pO2 82 (80-105) 11/24/16 04:49 POC ABG HCO3 40.7 11/24/16 04:49 POC ABG Total CO2 43 11/24/16 04:49 POC ABG O2 Sat 96 11/24/16 04:49 POC ABG Base Excess 16 11/24/16 04:49 VBG pH 7.319 (7.320-7.420) L 11/13/16 20:49 FiO2 80 % 11/24/16 04:49 Sodium 145 mmol/L (137-145) 11/22/16 05:54 Potassium 4.4 mmol/L (3.6-5.0) 11/22/16 05:54 Chloride 100.5 mmol/L (98-107) 11/22/16 05:54 Carbon Dioxide 35 mmol/L (22-30) H 11/22/16 05:54 Anion Gap 14 mmol/L 11/22/16 05:54 BUN 17 mg/dL (9-20) 11/22/16 05:54 Creatinine 0.3 mg/dL (0.8-1.5) L 11/22/16 05:54 Estimated GFR > 60 ml/min 11/22/16 05:54 BUN/Creatinine Ratio 56.66 % 11/22/16 05:54 Glucose 150 mg/dL (75-100) H 11/22/16 05:54 POC Glucose 113 (70-105) H 11/24/16 12:18 Lactic Acid 0.70 mmol/L (0.7-2.0) 11/17/16 17:25 Calcium 9.1 mg/dL (8.4-10.2) 11/22/16 05:54 Magnesium 1.70 mg/dL (1.7-2.3) 11/16/16 04:57 Total Bilirubin 0.30 mg/dL (0.1-1.2) 11/13/16 20:49 AST 27 units/L (5-40) 11/13/16 20:49 ALT 15 units/L (7-56) 11/13/16 20:49 Alkaline Phosphatase 103 units/L (35-129) 11/13/16 20:49 C-Reactive Protein 23.10 mg/dL (0.00-1.30) H 11/14/16 10:30 Total Protein 7.7 g/dL (6.3-8.2) 11/13/16 20:49 Albumin 2.7 g/dL (3.9-5) L 11/13/16 20:49 Albumin/Globulin Ratio 0.5 % 11/13/16 20:49 Urine Color Yellow (Yellow) 11/13/16 21:40 Urine Turbidity Clear (Clear) 11/13/16 21:40 Urine pH 7.0 (5.0-7.0) 11/13/16 21:40 Ur Specific [place] 1.008 (1.003-1.030) 11/13/16 21:40 Urine Protein <15 mg/dl mg/dL (Negative) 11/13/16 21:40 Urine Glucose (UA) Neg mg/dL (Negative) 11/13/16 21:40 Urine Ketones Neg mg/dL (Negative) 11/13/16 21:40 Urine Blood Lg (Negative) 11/13/16 21:40 Urine Nitrite Neg (Negative) 11/13/16 21:40 Urine Bilirubin Neg (Negative) 11/13/16 21:40 Urine Urobilinogen < 2.0 mg/dL (<2.0) 11/13/16 21:40 Ur Leukocyte Esterase Lg (Negative) 11/13/16 21:40 Urine WBC (Auto) 4.0 /HPF (0.0-6.0) 11/13/16 21:40 Urine RBC (Auto) 3.0 /HPF (0.0-6.0) 11/13/16 21:40 Urine Bacteria (Auto) 1+ /HPF (Negative) 11/13/16 21:40 Urine Mucus Few /HPF 11/13/16 21:40 Blood Type O POSITIVE 11/14/16 03:00 FREDDIE Antibody Screen Negative 11/14/16 03:00
[2016-11-24 15:00] LABS: Basophils % (Auto) 0.3 % (0.0-1.8); Eosinophils % (Auto) 3.3 % (0.0-4.3); Hematocrit 34.6 % (35.5-45.6); Hemoglobin 11.4 gm/dl (11.8-15.2); Mean Corpuscular HGB Conc 33 % (32-34); Mean Corpuscular Hemoglobin 30 pg (28-32); Mean Corpuscular Volume 93 fl (84-94); Platelet Count 585 K/mm3 (140-440); Red Blood Count 3.74 M/mm3 (3.65-5.03); Red Cell Distribution Width 15.9 % (13.2-15.2); White Blood Count 14.4 K/mm3 (4.5-11.0)
[2016-11-24 15:17] LABS: Anion Gap 13 mmol/L; BUN/Creatinine Ratio 73.33; Blood Urea Nitrogen 22 mg/dL (9-20); Calcium 9.1 mg/dL (8.4-10.2); Carbon Dioxide 37 mmol/L (22-30); Chloride 94.3 mmol/L (98-107); Glucose 109 mg/dL (75-100); Potassium 4.3 mmol/L (3.6-5.0); Sodium 140 mmol/L (137-145)
--- NOTE | 2016-11-24 17:14 | Progress Note ---
Assessment and Plan - Patient Problems (1) Pneumonia Current Visit: Yes Status: Acute Qualifiers: Pneumonia type: due to unspecified organism Aspiration pneumonia type: A Laterality: bilateral Lung location: lower lobe of lung Qualified Code(s): J18.9 - Pneumonia, unspecified organism Plan to address problem: Continue Meropenem for now. Currently day #5 of treatment. Chest radiograph shows improvement. Follow blood culture results. Subjective Date of service: 11/24/16 Principal diagnosis: Acute on Chronic Hypoxemic Respiratory Failure; Sepsis Syndrome Interval history: Low-grade temps past 24 hours. Blood cultures sent. Objective - Constitutional Vitals: Vital Signs Temp Pulse Resp BP Pulse Ox 97.8 F 87 20 121/77 93 11/24/16 16:00 11/24/16 16:00 11/24/16 16:00 11/24/16 16:00 11/24/16 09:11 Temperature -Last 24 Hours Temperature 97.8 F Temperature 97.7 F Temperature 99.3 F Temperature 100.3 F Temperature 100.3 F Temperature 98.5 F Temperature 99.8 F General appearance: Present: no acute distress, other (BiPAP in place) - Neck Neck: other (tract collar) - Respiratory Respiratory effort: normal Respiratory: bilateral: CTA - Cardiovascular Rhythm: regular Heart Sounds: Present: S1 & S2 Extremities: No edema - Gastrointestinal General gastrointestinal: Present: soft, non-distended, other ((+) PEG) - Genitourinary Male genitourinary: normal (Smith with normal-appearing urine) - Integumentary Integumentary: no rash - Neurologic Neurologic: other (aphasic) - Labs CBC & Chem 7: 11/24/16 14:52 11/24/16 14:52 Labs: Abnormal lab results 11/23/16 11/24/16 11/24/16 Range/Units 23:55 04:49 06:39 WBC (4.5-11.0) K/mm3 Hgb (11.8-15.2) gm/dl Hct (35.5-45.6) % RDW (13.2-15.2) % Plt Count (140-440) K/mm3 Lymph % (Auto) (13.4-35.0) % [place] # (0.0-0.8) K/mm3 Eos # (0.0-0.4) K/mm3 Seg Neutrophils % (40.0-70.0) % Seg Neutrophils # (1.8-7.7) K/mm3 POC ABG pCO2 63.3 H (35-45) Chloride (98-107) mmol/L Carbon Dioxide (22-30) mmol/L BUN (9-20) mg/dL Creatinine (0.8-1.5) mg/dL Glucose (75-100) mg/dL POC Glucose 119 H 106 H (70-105) 11/24/16 11/24/16 11/24/16 Range/Units 12:18 14:52 14:52 WBC 14.4 H (4.5-11.0) K/mm3 Hgb 11.4 L (11.8-15.2) gm/dl Hct 34.6 L (35.5-45.6) % RDW 15.9 H (13.2-15.2) % Plt Count 585 H (140-440) K/mm3 Lymph % (Auto) 12.6 L (13.4-35.0) % [place] # 0.9 H (0.0-0.8) K/mm3 Eos # 0.5 H (0.0-0.4) K/mm3 Seg Neutrophils % 77.4 H (40.0-70.0) % Seg Neutrophils # 11.1 H (1.8-7.7) K/mm3 POC ABG pCO2 (35-45) Chloride 94.3 L (98-107) mmol/L Carbon Dioxide 37 H (22-30) mmol/L BUN 22 H (9-20) mg/dL Creatinine 0.3 L (0.8-1.5) mg/dL Glucose 109 H (75-100) mg/dL POC Glucose 113 H (70-105) - Imaging and cardiology Chest x-ray: report reviewed (slight improvement of multilobar reticunodular interstitial opacities)
[2016-11-24 18:42] LABS: ISTAT Base Excess 20; ISTAT HCO3 44.4; ISTAT PCO2 68.8 (35-45); ISTAT PH 7.417 (7.35-7.45); ISTAT PO2 87 (80-105); ISTAT SO2 96; ISTAT TCO2 46
[2016-11-25] MEDS: NOVOLOG SUB-Q SCH ×4 (00:01→17:27)
[2016-11-25] MEDS: DUONEB *Not for PRN Use IH SCH ×4 (02:02→20:30)
[2016-11-25] MEDS: MERREM 1,000 MG in NACL 0.9% 100 ML IV SCH ×3 (02:29→17:27)
[2016-11-25 08:08] LABS: Basophils % (Auto) 0.7 % (0.0-1.8); Eosinophils % (Auto) 4.1 % (0.0-4.3); Hematocrit 35.3 % (35.5-45.6); Hemoglobin 11.3 gm/dl (11.8-15.2); Mean Corpuscular HGB Conc 32 % (32-34); Mean Corpuscular Hemoglobin 30 pg (28-32); Mean Corpuscular Volume 93 fl (84-94); Platelet Count 623 K/mm3 (140-440); Red Blood Count 3.78 M/mm3 (3.65-5.03); Red Cell Distribution Width 16.2 % (13.2-15.2); White Blood Count 11.6 K/mm3 (4.5-11.0)
[2016-11-25 08:19] LABS: Anion Gap 12 mmol/L; Blood Urea Nitrogen 24 mg/dL (9-20); Calcium 9.1 mg/dL (8.4-10.2); Carbon Dioxide 39 mmol/L (22-30); Chloride 97.1 mmol/L (98-107); Glucose 124 mg/dL (75-100); Potassium 4.8 mmol/L (3.6-5.0); Sodium 143 mmol/L (137-145)
--- NOTE | 2016-11-25 10:36 | Progress Note ---
Assessment and Plan - Patient Problems (1) Acute hypoxemic respiratory failure Current Visit: Yes Status: Acute (2) Atelectasis of both lungs Current Visit: Yes Status: Acute (3) Pneumothorax on right Current Visit: Yes Status: Acute (4) Pneumonia Current Visit: Yes Status: Acute Qualifiers: Pneumonia type: due to unspecified organism Aspiration pneumonia type: A Laterality: bilateral Lung location: lower lobe of lung Qualified Code(s): J18.9 - Pneumonia, unspecified organism (5) Encephalopathy acute Current Visit: No Status: Acute (6) Sepsis syndrome Current Visit: No Status: Acute (7) Discharge planning issues Current Visit: Yes Status: Acute Subjective Date of service: 11/25/16 Principal diagnosis: Acute on Chronic Hypoxemic Respiratory Failure; Sepsis Syndrome Interval history: Seen and examined at bedside; 24 hour events reviewed; nursing and respiratory care staff consulted; no adverse overnight events reported to me; Objective Vital Signs - 12hr 11/24/16 11/24/16 11/25/16 22:51 22:52 00:06 Temperature 97.9 F Pulse Rate 88 90 Pulse Rate [ Bilateral Throughout] Respiratory 22 18 Rate Respiratory Rate [Bilateral Throughout] Blood Pressure 121/73 O2 Sat by Pulse 96 99 Oximetry O2 Sat by Pulse 95 Oximetry [ Assessment] 11/25/16 11/25/16 11/25/16 02:04 04:00 04:14 Temperature 97.7 F Pulse Rate 85 84 Pulse Rate [ 84 Bilateral Throughout] Respiratory 23 21 Rate Respiratory 26 H Rate [Bilateral Throughout] Blood Pressure 124/72 O2 Sat by Pulse 97 96 Oximetry O2 Sat by Pulse Oximetry [ Assessment] 11/25/16 11/25/16 11/25/16 07:00 08:58 09:10 Temperature 97.6 F Pulse Rate 86 Pulse Rate [ 75 88 Bilateral Throughout] Respiratory 19 Rate Respiratory 20 22 Rate [Bilateral Throughout] Blood Pressure 125/81 O2 Sat by Pulse 86 99 Oximetry O2 Sat by Pulse 99 Oximetry [ Assessment] Constitutional: no acute distress, other (somnolent; mild cognitive dysfunction) Eyes: non-icteric ENT: oropharynx moist Neck: supple, no lymphadenopathy Effort: mildly labored Ascultation: Bilateral: diminished breath sounds (bases), rales Cardiovascular: regular rate and rhythm Gastrointestinal: normoactive bowel sounds, soft, non-tender, non-distended Integumentary: normal Extremities: no cyanosis, no edema, pink and warm, pulses normal Neurologic: normal mental status, non-focal exam (post-CVA hemiparesis; 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 (12.2-14.9) H 11/13/16 20:49 INR 1.19 (0.87-1.13) H 11/13/16 20:49 D-Dimer 2565.21 ng/mlDDU (0-234) H 11/13/16 20:49 Abnormal lab findings: Abnormal Labs 11/14/16 11/14/16 11/14/16 00:49 05:49 10:30 WBC RBC Hgb Hct MCV RDW Plt Count Lymph % (Auto) [place] % (Auto) Lymph # [place] # Eos # Seg Neutrophils % Seg Neutrophils # POC ABG pH 7.455 H POC ABG pCO2 54.2 H 46.9 H POC ABG pO2 109 H Potassium Chloride Carbon Dioxide BUN Creatinine Glucose POC Glucose Calcium C-Reactive Protein 23.10 H 11/14/16 11/14/16 11/15/16 13:20 23:26 04:13 WBC 16.1 H RBC 3.08 L Hgb 9.4 L Hct 28.4 L D MCV RDW 15.8 H Plt Count Lymph % (Auto) 6.1 L [place] % (Auto) 8.5 H Lymph # 1.0 L [place] # 1.4 H Eos # Seg Neutrophils % 84.7 H Seg Neutrophils # 13.6 H POC ABG pH 7.454 H POC ABG pCO2 POC ABG pO2 69 L Potassium Chloride Carbon Dioxide BUN Creatinine Glucose POC Glucose 118 H Calcium C-Reactive Protein 11/15/16 11/15/16 11/15/16 04:13 04:52 23:40 WBC RBC Hgb Hct MCV RDW Plt Count Lymph % (Auto) [place] % (Auto) Lymph # [place] # Eos # Seg Neutrophils % Seg Neutrophils # POC ABG pH 7.488 H POC ABG pCO2 45.4 H POC ABG pO2 72 L Potassium 3.4 L D Chloride Carbon Dioxide 31 H BUN Creatinine 0.4 L Glucose 103 H POC Glucose 106 H Calcium C-Reactive Protein 11/16/16 11/16/16 11/16/16 04:57 04:57 10:51 WBC RBC 3.00 L Hgb 9.2 L Hct 28.4 L MCV 95 H RDW 16.0 H Plt Count Lymph % (Auto) 10.6 L [place] % (Auto) 8.7 H Lymph # 1.1 L [place] # 0.9 H Eos # Seg Neutrophils % 78.2 H Seg Neutrophils # 8.2 H POC ABG pH POC ABG pCO2 48.7 H POC ABG pO2 70 L Potassium 3.4 L Chloride Carbon Dioxide BUN Creatinine 0.4 L Glucose POC Glucose Calcium C-Reactive Protein 11/16/16 11/16/16 11/17/16 18:00 23:53 03:33 WBC RBC 3.06 L Hgb 9.4 L Hct 28.6 L MCV RDW 16.2 H Plt Count Lymph % (Auto) 12.3 L [place] % (Auto) 9.6 H Lymph # 1.1 L [place] # Eos # Seg Neutrophils % 74.2 H Seg Neutrophils # POC ABG pH POC ABG pCO2 POC ABG pO2 Potassium Chloride Carbon Dioxide BUN Creatinine Glucose POC Glucose 143 H 149 H Calcium C-Reactive Protein 11/17/16 11/17/16 11/17/16 03:33 03:39 04:59 WBC RBC Hgb Hct MCV RDW Plt Count Lymph % (Auto) [place] % (Auto) Lymph # [place] # Eos # Seg Neutrophils % Seg Neutrophils # POC ABG pH POC ABG pCO2 50.6 H POC ABG pO2 Potassium 3.5 L Chloride Carbon Dioxide 31 H BUN Creatinine 0.3 L Glucose 125 H POC Glucose 140 H Calcium C-Reactive Protein 11/17/16 11/17/16 11/17/16 11:26 16:08 17:38 WBC RBC Hgb Hct MCV RDW Plt Count Lymph % (Auto) [place] % (Auto) Lymph # [place] # Eos # Seg Neutrophils % Seg Neutrophils # POC ABG pH 7.460 H POC ABG pCO2 51.2 H POC ABG pO2 115 H Potassium Chloride Carbon Dioxide BUN Creatinine Glucose POC Glucose 142 H 143 H Calcium C-Reactive Protein 11/17/16 11/18/16 11/18/16 23:42 03:34 04:10 WBC RBC Hgb Hct MCV RDW Plt Count Lymph % (Auto) [place] % (Auto) Lymph # [place] # Eos # Seg Neutrophils % Seg Neutrophils # POC ABG pH POC ABG pCO2 48.4 H POC ABG pO2 72 L Potassium Chloride Carbon Dioxide BUN 8 L Creatinine 0.3 L Glucose POC Glucose 121 H Calcium 8.1 L C-Reactive Protein 11/18/16 11/18/16 11/19/16 04:10 12:21 04:01 WBC RBC 2.89 L Hgb 8.8 L Hct 27.1 L MCV RDW 15.9 H Plt Count Lymph % (Auto) [place] % (Auto) 8.1 H Lymph # 1.1 L [place] # Eos # Seg Neutrophils % 74.4 H Seg Neutrophils # POC ABG pH POC ABG pCO2 47.5 H POC ABG pO2 Potassium Chloride Carbon Dioxide BUN Creatinine Glucose POC Glucose 111 H Calcium C-Reactive Protein 11/19/16 11/19/16 11/20/16 12:00 23:39 05:07 WBC RBC Hgb Hct MCV RDW Plt Count Lymph % (Auto) [place] % (Auto) Lymph # [place] # Eos # Seg Neutrophils % Seg Neutrophils # POC ABG pH POC ABG pCO2 POC ABG pO2 Potassium Chloride Carbon Dioxide BUN Creatinine Glucose POC Glucose 118 H 127 H 134 H Calcium C-Reactive Protein 11/20/16 11/20/16 11/20/16 08:41 08:41 08:56 WBC RBC 3.37 L Hgb 10.3 L Hct 31.2 L MCV RDW 15.9 H Plt Count Lymph % (Auto) [place] % (Auto) 7.4 H Lymph # [place] # Eos # Seg Neutrophils % Seg Neutrophils # POC ABG pH POC ABG pCO2 51.9 H POC ABG pO2 77 L Potassium Chloride Carbon Dioxide 31 H BUN Creatinine 0.3 L Glucose POC Glucose Calcium 8.1 L C-Reactive Protein 11/20/16 11/20/1611/21/17 11:22 16:45 03:38 WBC RBC Hgb Hct MCV RDW Plt Count Lymph % (Auto) [place] % (Auto) Lymph # [place] # Eos # Seg Neutrophils % Seg Neutrophils # POC ABG pH POC ABG pCO2 POC ABG pO2 Potassium Chloride Carbon Dioxide BUN Creatinine Glucose POC Glucose 116 H 106 H 125 H Calcium C-Reactive Protein 11/21/16 11/21/16 11/21/16 04:49 04:49 12:04 WBC 14.2 H RBC 3.61 L Hgb 10.9 L Hct 34.0 L MCV RDW 16.1 H Plt Count 464 H Lymph % (Auto) 10.2 L [place] % (Auto) Lymph # [place] # Eos # Seg Neutrophils % 82.5 H Seg Neutrophils # 11.8 H POC ABG pH POC ABG pCO2 POC ABG pO2 Potassium Chloride Carbon Dioxide BUN Creatinine 0.3 L Glucose 122 H POC Glucose 136 H Calcium C-Reactive Protein 11/21/16 11/21/16 11/22/16 16:45 22:12 02:50 WBC RBC Hgb Hct MCV RDW Plt Count Lymph % (Auto) [place] % (Auto) Lymph # [place] # Eos # Seg Neutrophils % Seg Neutrophils # POC ABG pH POC ABG pCO2 POC ABG pO2 Potassium Chloride Carbon Dioxide BUN Creatinine Glucose POC Glucose 119 H 111 H 138 H Calcium C-Reactive Protein 11/22/16 11/22/16 11/22/16 05:54 17:04 21:32 WBC RBC Hgb Hct MCV RDW Plt Count Lymph % (Auto) [place] % (Auto) Lymph # [place] # Eos # Seg Neutrophils % Seg Neutrophils # POC ABG pH POC ABG pCO2 POC ABG pO2 Potassium Chloride Carbon Dioxide 35 H BUN Creatinine 0.3 L Glucose 150 H POC Glucose 112 H 116 H Calcium C-Reactive Protein 11/23/16 11/23/16 11/23/16 04:56 09:11 11:31 WBC RBC Hgb Hct MCV RDW Plt Count Lymph % (Auto) [place] % (Auto) Lymph # [place] # Eos # Seg Neutrophils % Seg Neutrophils # POC ABG pH POC ABG pCO2 59.1 H POC ABG pO2 49 L Potassium Chloride Carbon Dioxide BUN Creatinine Glucose POC Glucose 135 H 138 H Calcium C-Reactive Protein 11/23/16 11/23/16 11/24/16 16:13 23:55 04:49 WBC RBC Hgb Hct MCV RDW Plt Count Lymph % (Auto) [place] % (Auto) Lymph # [place] # Eos # Seg Neutrophils % Seg Neutrophils # POC ABG pH POC ABG pCO2 63.3 H POC ABG pO2 Potassium Chloride Carbon Dioxide BUN Creatinine Glucose POC Glucose 128 H 119 H Calcium C-Reactive Protein 11/24/16 11/24/16 11/24/16 06:39 12:18 14:52 WBC 14.4 H RBC Hgb 11.4 L Hct 34.6 L MCV RDW 15.9 H Plt Count 585 H Lymph % (Auto) 12.6 L [place] % (Auto) Lymph # [place] # 0.9 H Eos # 0.5 H Seg Neutrophils % 77.4 H Seg Neutrophils # 11.1 H POC ABG pH POC ABG pCO2 POC ABG pO2 Potassium Chloride Carbon Dioxide BUN Creatinine Glucose POC Glucose 106 H 113 H Calcium C-Reactive Protein 11/24/16 11/24/16 11/24/16 14:52 18:12 23:09 WBC RBC Hgb Hct MCV RDW Plt Count Lymph % (Auto) [place] % (Auto) Lymph # [place] # Eos # Seg Neutrophils % Seg Neutrophils # POC ABG pH POC ABG pCO2 68.8 H POC ABG pO2 Potassium Chloride 94.3 L Carbon Dioxide 37 H BUN 22 H Creatinine 0.3 L Glucose 109 H POC Glucose 127 H Calcium C-Reactive Protein 11/25/16 11/25/16 11/25/16 05:18 07:29 07:29 WBC 11.6 H RBC Hgb 11.3 L Hct 35.3 L MCV RDW 16.2 H Plt Count 623 H Lymph % (Auto) 13.1 L [place] % (Auto) 8.2 H Lymph # [place] # 1.0 H Eos # 0.5 H Seg Neutrophils % 73.9 H Seg Neutrophils # 8.6 H POC ABG pH POC ABG pCO2 POC ABG pO2 Potassium Chloride 97.1 L Carbon Dioxide 39 H BUN 24 H Creatinine 0.3 L Glucose 124 H POC Glucose 125 H Calcium C-Reactive Protein
[2016-11-25] MEDS: LOVENOX SUB-Q SCH (10:53)
[2016-11-25] MEDS: KEPPRA PO SCH ×2 (10:53→22:29)
[2016-11-25] MEDS: THERAGRAN Tab PO SCH (10:53)
[2016-11-25] MEDS: COLACE PO SCH ×2 (10:53→22:29)
[2016-11-25] MEDS: PEPCID PO SCH ×2 (10:53→22:30)
[2016-11-25] MEDS: TRANSDERM-SCOP TD SCH (14:34)
--- NOTE | 2016-11-25 15:45 | Progress Note ---
Assessment and Plan Assessment and plan: --Acute on chronic hypoxemic respiratory failure/tracheostomy; Nebulizers, IV steroids , inhalation steroids,cont meropenem 10-14 days, BiPAP at night --Bilateral pneumonia/atelectasis s/p bronchoscopy, suctioning secretions, supportive care Continue meropenem, pulmonary following --Right pneumothorax: s/p right chest tube placement with drainage --Febrile illness /Sepsis secondary to bilateral pneumonia; on antibiotics ID following --Type 2 diabetes mellitus; Accu-Chek sliding scale coverage and ADA diet and insulin --History of seizure disorder Seizure precautions, continue antiepileptic medications --DVT prophylaxis; Lovenox -- Peg and Trach. Care --CODE STATUS full code closely monitor the patient and adjust management as needed History Interval history: Patient seen and evaluated medical records reviewed Clinically no change, noncommunicative, in mild distress Hospitalist Physical - Constitutional Vitals: Temp Pulse Resp BP Pulse Ox 97.6 F 88 22 125/81 99 11/25/16 07:00 11/25/16 09:10 11/25/16 09:10 11/25/16 07:00 11/25/16 08:58 General appearance: Present: mild distress, cachectic, disheveled, other (BiPAP ) - EENT Eyes: Present: PERRL, EOM intact - Neck Neck: Present: supple, normal ROM - Respiratory Respiratory effort: normal Respiratory: bilateral: diminished, rhonchi, negative: rales, wheezing - Cardiovascular Rhythm: regular Heart Sounds: Present: S1 & S2 - Extremities Extremity abnormal: edema (trace edema) - Abdominal General gastrointestinal: soft, non-tender, non-distended, normal bowel sounds, other (PEG tube in place) - Integumentary Integumentary: Present: clear, warm - Psychiatric Psychiatric: other (minimal communicative) - Neurologic Neurologic: other (Natalie communicative) Results - Labs CBC & Chem 7: 11/25/16 07:29 11/25/16 07:29 Labs: Laboratory Last Values WBC 11.6 K/mm3 (4.5-11.0) H 11/25/16 07:29 RBC 3.78 M/mm3 (3.65-5.03) 11/25/16 07:29 Hgb 11.3 gm/dl (11.8-15.2) L 11/25/16 07:29 Hct 35.3 % (35.5-45.6) L 11/25/16 07: MCV 93 fl (84-94) 11/25/16 07: MCH 30 pg (28-32) 11/25/16 07: MCHC 32 % (32-34) 11/25/16 07: RDW 16.2 % (13.2-15.2) H 11/25/16 07:29 Plt Count 623 K/mm3 (140-440) H 11/25/16 07:29 Lymph % (Auto) 13.1 % (13.4-35.0) L 11/25/16 07: [place] % (Auto) 8.2 % (0.0-7.3) H 11/25/16 07: Eos % (Auto) 4.1 % (0.0-4.3) 11/25/16 07: Baso % (Auto) 0.7 % (0.0-1.8) 11/25/16 07: Lymph # 1.5 K/mm3 (1.2-5.4) 11/25/16 07: [place] # 1.0 K/mm3 (0.0-0.8) H 11/25/16 07: Eos # 0.5 K/mm3 (0.0-0.4) H 11/25/16 07: Baso # 0.1 K/mm3 (0.0-0.1) 11/25/16 07: Seg Neutrophils % 73.9 % (40.0-70.0) H 11/25/16 07: Seg Neutrophils # 8.6 K/mm3 (1.8-7.7) H 11/25/16 07:29 PT 15.7 Sec. (12.2-14.9) H 11/13/16 20:49 INR 1.19 (0.87-1.13) H 11/13/16 20:49 D-Dimer 2565.21 ng/mlDDU (0-234) H 11/13/16 20:49 POC ABG pH 7.417 (7.35-7.45) 11/24/16 18:12 POC ABG pCO2 68.8 (35-45) H 11/24/16 18:12 POC ABG pO2 87 (80-105) 11/24/16 18:12 POC ABG HCO3 44.4 11/24/16 18:12 POC ABG Total CO2 46 11/24/16 18:12 POC ABG O2 Sat 96 11/24/16 18:12 POC ABG Base Excess 20 11/24/16 18:12 VBG pH 7.319 (7.320-7.420) L 11/13/16 20:49 FiO2 50 % 11/24/16 18:12 Sodium 143 mmol/L (137-145) 11/25/16 07:29 Potassium 4.8 mmol/L (3.6-5.0) 11/25/16 07:29 Chloride 97.1 mmol/L (98-107) L 11/25/16 07:29 Carbon Dioxide 39 mmol/L (22-30) H 11/25/16 07:29 Anion Gap 12 mmol/L 11/25/16 07:29 BUN 24 mg/dL (9-20) H 11/25/16 07:29 Creatinine 0.3 mg/dL (0.8-1.5) L 11/25/16 07:29 Estimated GFR > 60 ml/min 11/25/16 07:29 BUN/Creatinine Ratio 80.00 % 11/25/16 07:29 Glucose 124 mg/dL (75-100) H 11/25/16 07:29 POC Glucose 121 (70-105) H 11/25/16 11:50 Lactic Acid 0.70 mmol/L (0.7-2.0) 11/17/16 17:25 Calcium 9.1 mg/dL (8.4-10.2) 11/25/16 07:29 Magnesium 1.70 mg/dL (1.7-2.3) 11/16/16 04:57 Total Bilirubin 0.30 mg/dL (0.1-1.2) 11/13/16 20:49 AST 27 units/L (5-40) 11/13/16 20:49 ALT 15 units/L (7-56) 11/13/16 20:49 Alkaline Phosphatase 103 units/L (35-129) 11/13/16 20:49 C-Reactive Protein 23.10 mg/dL (0.00-1.30) H 11/14/16 10:30 NT-Pro-B Natriuret Pep 59.69 pg/mL (0-900) 11/24/16 14:52 Total Protein 7.7 g/dL (6.3-8.2) 11/13/16 20:49 Albumin 2.7 g/dL (3.9-5) L 11/13/16 20:49 Albumin/Globulin Ratio 0.5 % 11/13/16 20:49 Urine Color Yellow (Yellow) 11/13/16 21:40 Urine Turbidity Clear (Clear) 11/13/16 21:40 Urine pH 7.0 (5.0-7.0) 11/13/16 21:40 Ur Specific [place] 1.008 (1.003-1.030) 11/13/16 21:40 Urine Protein <15 mg/dl mg/dL (Negative) 11/13/16 21:40 Urine Glucose (UA) Neg mg/dL (Negative) 11/13/16 21:40 Urine Ketones Neg mg/dL (Negative) 11/13/16 21:40 Urine Blood Lg (Negative) 11/13/16 21:40 Urine Nitrite Neg (Negative) 11/13/16 21:40 Urine Bilirubin Neg (Negative) 11/13/16 21:40 Urine Urobilinogen < 2.0 mg/dL (<2.0) 11/13/16 21:40 Ur Leukocyte Esterase Lg (Negative) 11/13/16 21:40 Urine WBC (Auto) 4.0 /HPF (0.0-6.0) 11/13/16 21:40 Urine RBC (Auto) 3.0 /HPF (0.0-6.0) 11/13/16 21:40 Urine Bacteria (Auto) 1+ /HPF (Negative) 11/13/16 21:40 Urine Mucus Few /HPF 11/13/16 21:40 Blood Type O POSITIVE 11/14/16 03:00 FREDDIE Antibody Screen Negative 11/14/16 03:00
[2016-11-26] MEDS: NOVOLOG SUB-Q SCH ×2 (00:08→06:55)
[2016-11-26] MEDS: DUONEB *Not for PRN Use IH SCH ×3 (02:35→15:17)
[2016-11-26] MEDS: MERREM 1,000 MG in NACL 0.9% 100 ML IV SCH ×2 (03:00→09:50)
[2016-11-26 06:49] LABS: Basophils % (Auto) 0.4 % (0.0-1.8); Hematocrit 35.6 % (35.5-45.6); Hemoglobin 11.7 gm/dl (11.8-15.2); Mean Corpuscular HGB Conc 33 % (32-34); Mean Corpuscular Hemoglobin 31 pg (28-32); Mean Corpuscular Volume 94 fl (84-94); Platelet Count 730 K/mm3 (140-440); Red Blood Count 3.81 M/mm3 (3.65-5.03); Red Cell Distribution Width 15.6 % (13.2-15.2); White Blood Count 12.5 K/mm3 (4.5-11.0)
[2016-11-26 06:50] LABS: Blood Urea Nitrogen 24 mg/dL (9-20); Calcium 9.6 mg/dL (8.4-10.2); Glucose 153 mg/dL (75-100); Potassium 5.3 mmol/L (3.6-5.0); Sodium 141 mmol/L (137-145)
[2016-11-26 06:53] LABS: Anion Gap 11 mmol/L; Carbon Dioxide 42 mmol/L (22-30)
[2016-11-26] MEDS ORDERED: KIONEX PO ONE (07:04)
--- NOTE | 2016-11-26 09:36 | Progress Note ---
Assessment and Plan - Patient Problems (1) Pneumonia Current Visit: Yes Status: Acute Qualifiers: Pneumonia type: due to unspecified organism Aspiration pneumonia type: A Laterality: bilateral Lung location: lower lobe of lung Qualified Code(s): J18.9 - Pneumonia, unspecified organism Plan to address problem: 1. Patient is day #7 of therapy of a 7-10-day course of Meropenem. Chest tube removed on 11/24/16. 2. Continue same for now. Monitor closely clinically for new infectious concerns s/p code earlier today. Subjective Date of service: 11/26/16 Principal diagnosis: Acute on Chronic Hypoxemic Respiratory Failure; Sepsis Syndrome Interval history: Bradycardic arrest this AM. Remains afebrile. Objective - Constitutional Vitals: Vital Signs Temp Pulse Resp BP Pulse Ox 97.2 F L 78 18 115/77 98 11/25/16 19:58 11/26/16 08:42 11/26/16 08:42 11/25/16 19:58 11/26/16 08:45 Temperature -Last 24 Hours Temperature 97.2 F Temperature 97.6 F General appearance: Present: cachectic - Respiratory Respiratory effort: other (tracheostomy collar) - Cardiovascular Rhythm: other (irregular, bradycardic during code) Extremities: No edema - Gastrointestinal General gastrointestinal: Present: soft ((+) PEG in place) - Genitourinary Male genitourinary: normal (Smith with yellow urine) - Integumentary Integumentary: pale - Neurologic Neurologic: other (unresponsive) - Labs CBC & Chem 7: 11/26/16 05:25 11/26/16 05:35 Labs: Abnormal lab results 11/25/16 11/25/16 11/25/16 Range/Units 11:50 16:11 21:32 WBC (4.5-11.0) K/mm3 Hgb (11.8-15.2) gm/dl RDW (13.2-15.2) % Plt Count (140-440) K/mm3 Lymph % (Auto) (13.4-35.0) % [place] % (Auto) (0.0-7.3) % [place] # (0.0-0.8) K/mm3 Seg Neutrophils % (40.0-70.0) % Seg Neutrophils # (1.8-7.7) K/mm3 Potassium (3.6-5.0) mmol/L Chloride (98-107) mmol/L Carbon Dioxide (22-30) mmol/L BUN (9-20) mg/dL Creatinine (0.8-1.5) mg/dL Glucose (75-100) mg/dL POC Glucose 121 H 118 H 117 H (70-105) 11/26/16 11/26/16 11/26/16 Range/Units 05:25 05:35 06:18 WBC 12.5 H (4.5-11.0) K/mm3 Hgb 11.7 L (11.8-15.2) gm/dl RDW 15.6 H (13.2-15.2) % Plt Count 730 H (140-440) K/mm3 Lymph % (Auto) 11.0 L (13.4-35.0) % [place] % (Auto) 8.8 H (0.0-7.3) % [place] # 1.1 H (0.0-0.8) K/mm3 Seg Neutrophils % 77.8 H (40.0-70.0) % Seg Neutrophils # 9.7 H (1.8-7.7) K/mm3 Potassium 5.3 H (3.6-5.0) mmol/L Chloride 93.0 L (98-107) mmol/L Carbon Dioxide 42 H* (22-30) mmol/L BUN 24 H (9-20) mg/dL Creatinine 0.3 L (0.8-1.5) mg/dL Glucose 153 H (75-100) mg/dL POC Glucose 149 H (70-105) Microbiology 11/23/16 Unknown Urine,[place] Urine Culture - Final NO GROWTH AFTER 48 HOURS 11/23/16 16:39 Peripheral/Venous Blood Culture - Preliminary NO GROWTH AFTER 48 HOURS 11/23/16 16:29 Peripheral/Venous Blood Culture - Preliminary NO GROWTH AFTER 48 HOURS 11/13/16 21:31 Peripheral/Venous Blood Culture - Final NO GROWTH AFTER 5 DAYS 11/13/16 20:49 Peripheral/Venous Blood Culture - Final NO GROWTH AFTER 5 DAYS 11/15/16 13:20 Bronchial Washings - Right Middle Lobe Respiratory Culture - Final Diphtheroids 11/14/16 12:25 Tracheal Aspirate Sputum Culture - Final Klebsiella Oxytoca Klebsiella Oxytoca#2 11/13/16 21:31 Urine,Catheterized - Indwelling Catheter Urine Culture - Final
[2016-11-26] MEDS: THERAGRAN Tab PO SCH (09:52)
[2016-11-26] MEDS: COLACE PO SCH (09:52)
[2016-11-26] MEDS: PEPCID PO SCH (09:52)
[2016-11-26] MEDS: LOVENOX SUB-Q SCH (09:53)
[2016-11-26] MEDS: KEPPRA PO SCH (10:09)
[2016-11-26] MEDS ORDERED: CALCIUM CHLORIDE IV ONE (10:25)
[2016-11-26] MEDS ORDERED: SODIUM BICARBONATE IV ONE (10:25)
[2016-11-26] MEDS ORDERED: ADRENALIN ONE (10:25)
[2016-11-26 10:51] VITALS: BP 124/76
--- NOTE | 2016-11-26 10:59 | Event Note ---
Date: 11/26/16 Called to evaluate patient for CODE BLUE. On arrival patient was unresponsive with CPR initiated by nursing staff. Initial evaluation I noted the patient to be unresponsive he had an tracheostomy tube in place with minimal breath sounds on both sides. It appears to me that he had aspirated. CPR was initiated by the nurses. He was given 1 mg epinephrine and calcium chloride on arrival. CPR was continued throughout the process. There was some difficulty trying to ventilate him through his tracheostomy. This was removed by respiratory. Second trach was placed without success. Additionally an ET tube was placed without success. I tinted orotracheally intubate the patient without success 2. I then attempted to use the stoma and placed a 7.5 ET tube through the stoma. He was able to be ventilated through this. He had good breath sounds on the right side with slightly decreased on the left side. The tube was pulled back and breath sounds improved. CPR was continued throughout the entire process. He was given additional doses of epinephrine. He did intermittently have a pulse however at approximately 10:46 AM he was pronounced as he was in asystole. Portions of this chart were dictated with dictation software. There may be dictation errors contained within this note.
--- NOTE | 2016-11-26 12:29 | Progress Note ---
Assessment and Plan - Patient Problems (1) Acute hypoxemic respiratory failure Current Visit: Yes Status: Acute (2) Atelectasis of both lungs Current Visit: Yes Status: Acute (3) Pneumothorax on right Current Visit: Yes Status: Acute (4) Pneumonia Current Visit: Yes Status: Acute Qualifiers: Pneumonia type: due to unspecified organism Aspiration pneumonia type: A Laterality: bilateral Lung location: lower lobe of lung Qualified Code(s): J18.9 - Pneumonia, unspecified organism (5) Encephalopathy acute Current Visit: No Status: Acute (6) Sepsis syndrome Current Visit: No Status: Acute (7) Discharge planning issues Current Visit: Yes Status: Acute Subjective Date of service: 11/26/16 Principal diagnosis: Acute on Chronic Hypoxemic Respiratory Failure; Sepsis Syndrome Interval history: Seen and examined at bedside; 24 hour events reviewed; nursing and respiratory care staff consulted; no adverse overnight events reported to me; Objective Vital Signs - 12hr 11/26/16 11/26/16 11/26/16 00:31 02:35 03:02 Temperature Pulse Rate Pulse Rate [ 92 H 91 H Bilateral Throughout] Respiratory 23 Rate Respiratory 23 22 Rate [Bilateral Throughout] Blood Pressure O2 Sat by Pulse 96 Oximetry O2 Sat by Pulse Oximetry [ Assessment] 11/26/16 11/26/16 11/26/16 03:03 08:00 08:05 Temperature 98.9 F Pulse Rate 92 H 89 Pulse Rate [ 77 Bilateral Throughout] Respiratory 23 28 H Rate Respiratory 18 Rate [Bilateral Throughout] Blood Pressure 124/76 O2 Sat by Pulse 94 98 Oximetry O2 Sat by Pulse Oximetry [ Assessment] 11/26/16 11/26/16 11/26/16 08:42 08:43 08:45 Temperature Pulse Rate Pulse Rate [ 78 Bilateral Throughout] Respiratory Rate Respiratory 18 Rate [Bilateral Throughout] Blood Pressure O2 Sat by Pulse 98 Oximetry O2 Sat by Pulse 98 Oximetry [ Assessment] Constitutional: no acute distress, other (somnolent; mild cognitive dysfunction) Eyes: non-icteric ENT: oropharynx moist Neck: supple, no lymphadenopathy Effort: mildly labored Ascultation: Bilateral: diminished breath sounds (bases), rales Cardiovascular: regular rate and rhythm Gastrointestinal: normoactive bowel sounds, soft, non-tender, non-distended Integumentary: normal Extremities: no cyanosis, no edema, pink and warm, pulses normal Neurologic: normal mental status, non-focal exam (post-CVA hemiparesis; motor deficit in right lower extremity), pupils equal and round Psychiatric: mood appropriate, affect normal CBC and BMP: 11/26/16 05:25 11/26/16 05:35 ABG, PT/INR, D-dimer: ABG POC ABG pH 7.417 (7.35-7.45) 11/24/16 18:12 POC ABG pCO2 68.8 (35-45) H 11/24/16 18:12 POC ABG pO2 87 (80-105) 11/24/16 18:12 POC ABG HCO3 44.4 11/24/16 18:12 POC ABG Total CO2 46 11/24/16 18:12 POC ABG O2 Sat 96 11/24/16 18:12 PT/INR, D-dimer PT 15.7 Sec. (12.2-14.9) H 11/13/16 20:49 INR 1.19 (0.87-1.13) H 11/13/16 20:49 D-Dimer 2565.21 ng/mlDDU (0-234) H 11/13/16 20:49 Abnormal lab findings: Abnormal Labs 11/14/16 11/14/16 11/14/16 00:49 05:49 10:30 WBC RBC Hgb Hct MCV RDW Plt Count Lymph % (Auto) Bryan % (Auto) Lymph # Bryan # Eos # Seg Neutrophils % Seg Neutrophils # POC ABG pH 7.455 H POC ABG pCO2 54.2 H 46.9 H POC ABG pO2 109 H Potassium Chloride Carbon Dioxide BUN Creatinine Glucose POC Glucose Calcium C-Reactive Protein 23.10 H 11/14/16 11/14/16 11/15/16 13:20 23:26 04:13 WBC 16.1 H RBC 3.08 L Hgb 9.4 L Hct 28.4 L D MCV RDW 15.8 H Plt Count Lymph % (Auto) 6.1 L Bryan % (Auto) 8.5 H Lymph # 1.0 L Bryan # 1.4 H Eos # Seg Neutrophils % 84.7 H Seg Neutrophils # 13.6 H POC ABG pH 7.454 H POC ABG pCO2 POC ABG pO2 69 L Potassium Chloride Carbon Dioxide BUN Creatinine Glucose POC Glucose 118 H Calcium C-Reactive Protein 0711/15/16 11/15/16 04:13 04:52 23:40 WBC RBC Hgb Hct MCV RDW Plt Count Lymph % (Auto) Bryan % (Auto) Lymph # Bryan # Eos # Seg Neutrophils % Seg Neutrophils # POC ABG pH 7.488 H POC ABG pCO2 45.4 H POC ABG pO2 72 L Potassium 3.4 L D Chloride Carbon Dioxide 31 H BUN Creatinine 0.4 L Glucose 103 H POC Glucose 106 H Calcium C-Reactive Protein 11/16/16 11/16/16 11/16/16 04:57 04:57 10:51 WBC RBC 3.00 L Hgb 9.2 L Hct 28.4 L MCV 95 H RDW 16.0 H Plt Count Lymph % (Auto) 10.6 L Bryan % (Auto) 8.7 H Lymph # 1.1 L Bryan # 0.9 H Eos # Seg Neutrophils % 78.2 H Seg Neutrophils # 8.2 H POC ABG pH POC ABG pCO2 48.7 H POC ABG pO2 70 L Potassium 3.4 L Chloride Carbon Dioxide BUN Creatinine 0.4 L Glucose POC Glucose Calcium C-Reactive Protein 11/16/16 11/16/16 11/17/16 18:00 23:53 03:33 WBC RBC 3.06 L Hgb 9.4 L Hct 28.6 L MCV RDW 16.2 H Plt Count Lymph % (Auto) 12.3 L Bryan % (Auto) 9.6 H Lymph # 1.1 L Bryan # Eos # Seg Neutrophils % 74.2 H Seg Neutrophils # POC ABG pH POC ABG pCO2 POC ABG pO2 Potassium Chloride Carbon Dioxide BUN Creatinine Glucose POC Glucose 143 H 149 H Calcium C-Reactive Protein 11/17/16 11/17/16 11/17/16 03:33 03:39 04:59 WBC RBC Hgb Hct MCV RDW Plt Count Lymph % (Auto) Bryan % (Auto) Lymph # Bryan # Eos # Seg Neutrophils % Seg Neutrophils # POC ABG pH POC ABG pCO2 50.6 H POC ABG pO2 Potassium 3.5 L Chloride Carbon Dioxide 31 H BUN Creatinine 0.3 L Glucose 125 H POC Glucose 140 H Calcium C-Reactive Protein 11/17/16 11/17/16 11/17/16 11:26 16:08 17:38 WBC RBC Hgb Hct MCV RDW Plt Count Lymph % (Auto) Bryan % (Auto) Lymph # Bryan # Eos # Seg Neutrophils % Seg Neutrophils # POC ABG pH 7.460 H POC ABG pCO2 51.2 H POC ABG pO2 115 H Potassium Chloride Carbon Dioxide BUN Creatinine Glucose POC Glucose 142 H 143 H Calcium C-Reactive Protein 11/17/16 11/18/16 11/18/16 23:42 03:34 04:10 WBC RBC Hgb Hct MCV RDW Plt Count Lymph % (Auto) Bryan % (Auto) Lymph # Bryan # Eos # Seg Neutrophils % Seg Neutrophils # POC ABG pH POC ABG pCO2 48.4 H POC ABG pO2 72 L Potassium Chloride Carbon Dioxide BUN 8 L Creatinine 0.3 L Glucose POC Glucose 121 H Calcium 8.1 L C-Reactive Protein 11/18/16 11/18/16 11/19/16 04:10 12:21 04:01 WBC RBC 2.89 L Hgb 8.8 L Hct 27.1 L MCV RDW 15.9 H Plt Count Lymph % (Auto) Bryan % (Auto) 8.1 H Lymph # 1.1 L Bryan # Eos # Seg Neutrophils % 74.4 H Seg Neutrophils # POC ABG pH POC ABG pCO2 47.5 H POC ABG pO2 Potassium Chloride Carbon Dioxide BUN Creatinine Glucose POC Glucose 111 H Calcium C-Reactive Protein 11/19/16 11/19/16 11/20/16 12:00 23:39 05:07 WBC RBC Hgb Hct MCV RDW Plt Count Lymph % (Auto) Bryan % (Auto) Lymph # Bryan # Eos # Seg Neutrophils % Seg Neutrophils # POC ABG pH POC ABG pCO2 POC ABG pO2 Potassium Chloride Carbon Dioxide BUN Creatinine Glucose POC Glucose 118 H 127 H 134 H Calcium C-Reactive Protein 11/20/16 11/20/16 11/20/16 08:41 08:41 08:56 WBC RBC 3.37 L Hgb 10.3 L Hct 31.2 L MCV RDW 15.9 H Plt Count Lymph % (Auto) Bryan % (Auto) 7.4 H Lymph # Bryan # Eos # Seg Neutrophils % Seg Neutrophils # POC ABG pH POC ABG pCO2 51.9 H POC ABG pO2 77 L Potassium Chloride Carbon Dioxide 31 H BUN Creatinine 0.3 L Glucose POC Glucose Calcium 8.1 L C-Reactive Protein 11/20/16 11/20/16 11/21/16 11:22 16:45 03:38 WBC RBC Hgb Hct MCV RDW Plt Count Lymph % (Auto) Bryan % (Auto) Lymph # Bryan # Eos # Seg Neutrophils % Seg Neutrophils # POC ABG pH POC ABG pCO2 POC ABG pO2 Potassium Chloride Carbon Dioxide BUN Creatinine Glucose POC Glucose 116 H 106 H 125 H Calcium C-Reactive Protein 11/21/16 11/21/16 11/21/16 04:49 04:49 12:04 WBC 14.2 H RBC 3.61 L Hgb 10.9 L Hct 34.0 L MCV RDW 16.1 H Plt Count 464 H Lymph % (Auto) 10.2 L Bryan % (Auto) Lymph # Bryan # Eos # Seg Neutrophils % 82.5 H Seg Neutrophils # 11.8 H POC ABG pH POC ABG pCO2 POC ABG pO2 Potassium Chloride Carbon Dioxide BUN Creatinine 0.3 L Glucose 122 H POC Glucose 136 H Calcium C-Reactive Protein 11/21/16 11/21/16 11/22/16 16:45 22:12 02:50 WBC RBC Hgb Hct MCV RDW Plt Count Lymph % (Auto) Bryan % (Auto) Lymph # Bryan # Eos # Seg Neutrophils % Seg Neutrophils # POC ABG pH POC ABG pCO2 POC ABG pO2 Potassium Chloride Carbon Dioxide BUN Creatinine Glucose POC Glucose 119 H 111 H 138 H Calcium C-Reactive Protein 11/22/16 11/22/16 11/22/16 05:54 17:04 21:32 WBC RBC Hgb Hct MCV RDW Plt Count Lymph % (Auto) Bryan % (Auto) Lymph # Bryan # Eos # Seg Neutrophils % Seg Neutrophils # POC ABG pH POC ABG pCO2 POC ABG pO2 Potassium Chloride Carbon Dioxide 35 H BUN Creatinine 0.3 L Glucose 150 H POC Glucose 112 H 116 H Calcium C-Reactive Protein 11/23/16 11/23/16 11/23/16 04:56 09:11 11:31 WBC RBC Hgb Hct MCV RDW Plt Count Lymph % (Auto) Bryan % (Auto) Lymph # Bryan # Eos # Seg Neutrophils % Seg Neutrophils # POC ABG pH POC ABG pCO2 59.1 H POC ABG pO2 49 L Potassium Chloride Carbon Dioxide BUN Creatinine Glucose POC Glucose 135 H 138 H Calcium C-Reactive Protein 11/23/16 11/23/16 11/24/16 16:13 23:55 04:49 WBC RBC Hgb Hct MCV RDW Plt Count Lymph % (Auto) Bryan % (Auto) Lymph # Bryan # Eos # Seg Neutrophils % Seg Neutrophils # POC ABG pH POC ABG pCO2 63.3 H POC ABG pO2 Potassium Chloride Carbon Dioxide BUN Creatinine Glucose POC Glucose 128 H 119 H Calcium C-Reactive Protein 11/24/16 11/24/16 11/24/16 06:39 12:18 14:52 WBC 14.4 H RBC Hgb 11.4 L Hct 34.6 L MCV RDW 15.9 H Plt Count 585 H Lymph % (Auto) 12.6 L Bryan % (Auto) Lymph # Bryan # 0.9 H Eos # 0.5 H Seg Neutrophils % 77.4 H Seg Neutrophils # 11.1 H POC ABG pH POC ABG pCO2 POC ABG pO2 Potassium Chloride Carbon Dioxide BUN Creatinine Glucose POC Glucose 106 H 113 H Calcium C-Reactive Protein 11/24/16 11/24/16 11/24/16 14:52 18:12 23:09 WBC RBC Hgb Hct MCV RDW Plt Count Lymph % (Auto) Bryan % (Auto) Lymph # Bryan # Eos # Seg Neutrophils % Seg Neutrophils # POC ABG pH POC ABG pCO2 68.8 H POC ABG pO2 Potassium Chloride 94.3 L Carbon Dioxide 37 H BUN 22 H Creatinine 0.3 L Glucose 109 H POC Glucose 127 H Calcium C-Reactive Protein 11/25/16 11/25/16 11/25/16 05:18 07:29 07:29 WBC 11.6 H RBC Hgb 11.3 L Hct 35.3 L MCV RDW 16.2 H Plt Count 623 H Lymph % (Auto) 13.1 L Bryan % (Auto) 8.2 H Lymph # Bryan # 1.0 H Eos # 0.5 H Seg Neutrophils % 73.9 H Seg Neutrophils # 8.6 H POC ABG pH POC ABG pCO2 POC ABG pO2 Potassium Chloride 97.1 L Carbon Dioxide 39 H BUN 24 H Creatinine 0.3 L Glucose 124 H POC Glucose 125 H Calcium C-Reactive Protein 11/25/16 11/25/16 11/25/16 11:50 16:11 21:32 WBC RBC Hgb Hct MCV RDW Plt Count Lymph % (Auto) Bryan % (Auto) Lymph # Bryan # Eos # Seg Neutrophils % Seg Neutrophils # POC ABG pH POC ABG pCO2 POC ABG pO2 Potassium Chloride Carbon Dioxide BUN Creatinine Glucose POC Glucose 121 H 118 H 117 H Calcium C-Reactive Protein 11/26/16 11/26/16 11/26/16 05:25 05:35 06:18 WBC 12.5 H RBC Hgb 11.7 L Hct MCV RDW 15.6 H Plt Count 730 H Lymph % (Auto) 11.0 L Bryan % (Auto) 8.8 H Lymph # Bryan # 1.1 H Eos # Seg Neutrophils % 77.8 H Seg Neutrophils # 9.7 H POC ABG pH POC ABG pCO2 POC ABG pO2 Potassium 5.3 H Chloride 93.0 L Carbon Dioxide 42 H* BUN 24 H Creatinine 0.3 L Glucose 153 H POC Glucose 149 H Calcium C-Reactive Protein
--- NOTE | 2016-11-26 14:14 | Discharge Summary ---
Providers - Providers Date of Admission: 11/14/16 00:34 Date of discharge: 11/26/16 Attending physician: VAISHALI WILSON 11/14/16 10:00 Consult to Wound/ET Nurse [CONS] Routine Reason For Exam: RIGHT BUTTOCK DEEP TISSUE INJURY 11/14/16 11:43 Consult to Dietitian/Nutrition [CONS] Routine Physician Instructions: Reason For Exam: Reason for Consult: Write/Manage Tube Feeding 11/17/16 16:21 Consult to PICC Line RN [CONS] Routine Reason For Exam: need for central vascular access Type Line:: PICC 11/18/16 14:42 Consult to Physician [CONS] Routine Consulting Provider: MARYAM LEWIS Reason For Exam: assistance with antibiotic choice and duration Place consult to:: Azul Wilcox Notified:: yes Phone number called:: [phone] Was contact made?: Yes If yes, spoke with:: Azul Time called:: 09:01 11/18/16 19:22 PICC Line Insertion [Consult to PICC Line RN] [CONS] Routine Reason For Exam: MD order Type Line:: PICC Primary care physician: FILL MANAGER Hospitalization Condition: Serious Disposition: DC-[id number] STILL A PATIENT Exam - Constitutional Vitals: Temp Pulse Resp BP Pulse Ox 98.9 F 78 18 124/76 98 11/26/16 08:05 11/26/16 08:42 11/26/16 08:42 11/26/16 08:05 11/26/16 08:45 Plan Follow up with: TK FERNANDEZ MD [Primary Care Provider] - 3-5 Days
--- NOTE | 2016-11-26 14:15 | Death Summary ---
Summary - Providers Date of service: 11/26/16 Consults: 11/14/16 10:00 Consult to Wound/ET Nurse [CONS] Routine Reason For Exam: RIGHT BUTTOCK DEEP TISSUE INJURY 11/14/16 11:43 Consult to Dietitian/Nutrition [CONS] Routine Physician Instructions: Reason For Exam: Reason for Consult: Write/Manage Tube Feeding 11/17/16 16:21 Consult to PICC Line RN [CONS] Routine Reason For Exam: need for central vascular access Type Line:: PICC 11/18/16 14:42 Consult to Physician [CONS] Routine Consulting Provider: MARYAM LEWIS Reason For Exam: assistance with antibiotic choice and duration Place consult to:: Azul Wilcox Notified:: yes Phone number called:: [phone] Was contact made?: Yes If yes, spoke with:: Azul Time called:: 09:01 11/18/16 19:22 PICC Line Insertion [Consult to PICC Line RN] [CONS] Routine Reason For Exam: MD order Type Line:: PICC Attending: VAISHALI WILSON - summary Date of admission: 11/14/16 00:34 Date of : 11/26/16 (at 10:47 am) Reason for admission: worsening shortness of breath; acute respiratory failure Significant findings: Final diagnosis; Cardiorespiratory arrest Acute on chronic hypoxemic respiratory failure Status post tracheostomy Right pneumothorax status post chest tube placement Bilateral Aspiration pneumonia Klebsiella pneumonia 2 diabetes mellitus History of seizures History of brain tumor 60-year-old male patient from a [facility] with significant history of chronic respiratory failure status post trach and PEG ,brain mass ,hypertension , diabetes ,seizure disorder was admitted through emergency room with worsening shortness of breath initially evaluation noted to have acute on chronic respiratory failure requiring intubation admitted to ICU, Patient had complicated critical ICU stay Had bronchoscopy with clearance of copious bronchial secretions, Patient also had a right-sided pneumothorax requiring chest tube Stabilized in ICU and later transferred to telemetry Throughout the hospital stay patient was chronically ill with gram-negative sepsis . patient was evaluated and managed by specialist pulmonary critical, infectious diseases as well as several hospitalists, Patient became worse and today had cardiorespiratory arrest, code blue was called, CPR was done as per ACLS protocol. Patient could not be revived And was pronounced at 10:47 AM on 11/26/2016 Family and [facility] was informed Cause of ; acute on chronic respiratory failure, severe sepsis, bilateral aspiration pneumonia, pneumothorax requiring chest tube placement, history of brain tumor Spent 45 min of critical care time caring for this patient today Procedures/treatments rendered: Bronchoscopy and creating the secretions Chest tube placement Pertinent studies: Chest x-ray CT angiogram of the chest Lower extremity venous Doppler Bronchoscopy and creating of mucous secretions Right-sided pneumothorax Status post chest tube placement Multiple chest x-rays Disposition: at 10:47 on 11/26/2016
== END 2016-11-26 10:47 | DRG 870 ==
LOC: ED 20:09 → CC1 11-14 00:34 → 3A 11-20 21:09
PROVIDERS: ADMIT Internal Medicine; ATTEND Internal Medicine
PROC: 5A1955Z Respiratory Ventilation, Greater than 96 Consecutive Hours (ICD-10-PCS; principal; 2016-11-13)
PROC: B54BZZA Ultrasonography of Right Lower Extremity Veins, Guidance (ICD-10-PCS; 2016-11-13)
PROC: 4A033R1 Measurement of Arterial Saturation, Peripheral, Percutaneous Approach (ICD-10-PCS; 2016-11-14)
PROC: 0W9900Z Drainage of Right Pleural Cavity with Drainage Device, Open Approach (ICD-10-PCS; 2016-11-15)
PROC: 02HV33Z Insertion of Infusion Device into Superior Vena Cava, Percutaneous Approach (ICD-10-PCS; 2016-11-15)
PROC: 0BC98ZZ Extirpation of Matter from Lingula Bronchus, Via Natural or Artificial Opening Endoscopic (ICD-10-PCS; 2016-11-15)
PROC: 0BC68ZZ Extirpation of Matter from Right Lower Lobe Bronchus, Via Natural or Artificial Opening Endoscopic (ICD-10-PCS; 2016-11-15)
PROC: 0BC88ZZ Extirpation of Matter from Left Upper Lobe Bronchus, Via Natural or Artificial Opening Endoscopic (ICD-10-PCS; 2016-11-26)
PROC: 0BH18EZ Insertion of Endotracheal Airway into Trachea, Via Natural or Artificial Opening Endoscopic (ICD-10-PCS; 2016-11-26)
PROC: 5A12012 Performance of Cardiac Output, Single, Manual (ICD-10-PCS; 2016-11-26)
DX: A41.50 Gram-negative sepsis, unspecified (principal); J96.21 Acute and chronic respiratory failure with hypoxia; E11.9 Type 2 diabetes mellitus without complications; J69.0 Pneumonitis due to inhalation of food and vomit; J15.6 Pneumonia due to other Gram-negative bacteria; J93.83 Other pneumothorax; R65.21 Severe sepsis with septic shock; J20.9 Acute bronchitis, unspecified; G40.909 Epilepsy, unspecified, not intractable, without status epilepticus; E87.6 Hypokalemia; G93.40 Encephalopathy, unspecified; I46.9 Cardiac arrest, cause unspecified; I10 Essential (primary) hypertension; J98.11 Atelectasis; K21.9 Gastro-esophageal reflux disease without esophagitis; Z79.51 Long term (current) use of inhaled steroids; Z87.891 Personal history of nicotine dependence; Z93.0 Tracheostomy status
CPT/HCPCS: 31720; 36415; 36600; 71010; 71275; 80048; 80053; 81001; 82140; 82803; 82805; 82962; 83735; 83880; 85025; 85379; 85610; 86140; 86850; 86900; 86901; 87040; 87070; 87076; 87086; 87116; 87186; 87205; 93005; 93010; 93970; 94002; 94003; 94640; 94660; 94760; 96361; 96365; 99285; J0171; J1650; J1956; J2185; J2543; J2704; J3010; J7030; J7040; P9045; Q9967